=== PATIENT | female | born 1955 | race Caucasian/White ===

== ENCOUNTER → 2018-09-06 | Outpatient (CLI) | payer OTHER, SELFPAY ==
[2018-09-06 15:20] VITALS: BMI 27.2
--- NOTE | 2018-09-06 16:24 | RAD_ITS ---
STUDY: X-RAY CHEST REASON FOR EXAM: Female, 62 years old. Preop for heart catheterization TECHNIQUE: 2 views COMPARISON: None. FINDINGS: The lungs are clear and expanded. There is no demonstrated pleural abnormality. Normal size heart. Normal mediastinum and adri. Normal visualized pulmonary arteries. Normal visualized aortic arch and descending thoracic aorta. Normal visualized thoracic spine. Normal visualized ribs, clavicles, and shoulders. There is no demonstrated abnormality of the visualized soft tissue structures of the upper abdomen. RAD/Chest PA and Lateral IMPRESSION: Normal x-ray examination of the chest. No acute findings in the lungs Electronically Signed: Leonardo Sommers MD at 5:17 EDT Tel , Service support ,
[2018-09-06 17:26] LABS: Hematocrit 38.1 % (37-47); Hemoglobin 12.5 g/dl (12.0-15.0); Mean Corp Hgb Conc 32.8 g/gl (32-36); Mean Corpuscular Hgb 30.4 pg (27.0-32.0); Mean Corpuscular Volume 92.7 fL (81-99); Mean Platelet Vol. 9.2 fl (6.2-12.0); Platelet Count 280 K/mm3 (150-450); RBC Distribution Width CV 13.3 % (11.6-14.6); RBC Distribution Width SD 45.2 fl (35.1-43.9); Red Blood Count 4.11 M/mm3 (4.2-5.4); White Blood Count 7.5 K/mm3 (4.4-11.0)
[2018-09-06 17:31] LABS: Scan Indicated on CBC? Y/N NO
[2018-09-06 17:40] LABS: Partial Thromboplast Time 28.3 Seconds (24.1-36.2); Prothrombin Time (Protime)PT. 13.1 SECONDS (11.7-14.9)
[2018-09-06 18:15] LABS: Anion Gap 7 (5-15); BUN 17 mg/dL (7-18); Calcium,Total 9.1 mg/dL (8.5-10.1); Chloride 105 mmol/L (98-107); Creatinine, Serum 0.65 mg/dL (0.55-1.02); EST Glomerular Filtration Rate 97 mL/min (>60); Est Glom Filt Rate - Afr Amer 117 mL/min (>60); Glucose 105 mg/dL (74-106); Potassium 3.6 mmol/L (3.5-5.1); Sodium Level 141 mmol/L (136-145)
== END | disposition home or self-care (01) ==
PROVIDERS: Family Provider Internal Medicine; PCP Internal Medicine; Referring Provider Internal Medicine Cardiovascular Disease; Visit Provider Internal Medicine Cardiovascular Disease
DX: R94.39 Abnormal result of other cardiovascular function study (principal); E06.3 Autoimmune thyroiditis; E04.2 Nontoxic multinodular goiter; R00.2 Palpitations
CPT/HCPCS: 36415; 71046; 80048; 85027; 85610; 85730

== ENCOUNTER 2018-09-14 08:09 | Day surgery (SDC) | payer OTHER, SELFPAY ==
[2018-09-06 15:20] VITALS: BMI 27.2
--- NOTE | 2018-09-06 16:05 | HP_ITS ---
HPI HPI Surgical H&P: Yes Details: Mrs. Perera is a very pleasant 62-year-old female with a history of Jessica's thyroiditis, hypertension, hyperlipidemia, who was referred to us for abnormal stress test. Last stress test was in 2004 at the [facility] which was negative. In addition she had not had any stress testing in the better part of 13 years. For surveillance purposes she was referred for repeat stress test. She underwent a exercise stress echo on 08/15/18 which was positive for ischemia specifically of the inferior inferoseptal and basal inferoseptal segments were all mildly hypokinetic. She denies any chest pain, angina, shortness of breath or dyspnea on exertion. This test was done due to her chronically abnormal EKG. Patient has had no premature coronary disease in her parents, but her father's uncles had a history of coronary artery disease. She has no siblings with coronary disease. Her most recent echocardiogram was at the [facility] on 06/05/04 showed an EF 55%. In addition she has stress echo in 2004 which again was normal. In our office her blood pressure is 150/70, and pulse is 72 and regular. Her physical exam is as below. Cardiac exam is regular rate and rhythm, normal S1/S2, no S3 or S4. Lipids as of 06/13/18 show an HDL of 62 and an LDL of 52. EKG is her most recent EKG on 08/15/18 showed normal sinus rhythm with nonspecific inferior lateral ST segment flattening and T wave inversion. 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 Is patient in pain?: No Allergies adhesive tape Adverse Reaction (Intermediate, Verified 09/06/18 15:21) Rash Medications atorvastatin 10 mg tablet 10 mg PO QHS 08/23/18 [History Confirmed 09/06/18] calcium carb 300 mg-D3 800 unit-mag ox 25 mg-copy holder 0.5 mg-yesenia-Zn tablet 1 tab PO DAILY 08/23/18 [History Confirmed 09/06/18] cholecalciferol (vitamin D3) 1,000 unit capsule 1,000 unit PO DAILY 08/23/18 [History Confirmed 09/06/18] estradiol 0.01% (0.1 mg/gram) vaginal cream 1 g VAGINAL 2XW 08/23/18 [History Confirmed 09/06/18] yhytkwok-kfn-xsmlt acid 0.4 mg-lycopene 300 mcg-lutein 250 mcg tablet 1 tab PO DAILY 08/23/18 [History Confirmed 09/06/18] propranolol 20 mg tablet 10 mg PO BID tab 08/23/18 [History Confirmed 09/06/18] aspirin 81 mg tablet,delayed release 81 mg PO DAILY #30 tab 09/06/18 [Rx Confirmed 09/06/18] clopidogrel 75 mg tablet 75 mg PO DAILY #30 tab 09/06/18 [Rx Confirmed 09/06/18] fluocinolone 0.01 % topical cream 1 applic TOPICAL .COMPLEX 09/06/18 [History Confirmed 09/06/18] [facility] Medical History Palpitations (Acute) H/O Jessica thyroiditis (Chronic 04/04/15) Abnormal stress test (Acute) Hypertension (Chronic) Hyperlipidemia (Chronic) Multiple thyroid nodules (Chronic) Uterovaginal prolapse (Chronic) Surgical History History of benign breast biopsy (Chronic) History of colonoscopy (Chronic) History of patellar fracture (Chronic) History of tubal ligation (Chronic) Hx of malignant melanoma (Chronic) Status post biopsy of skin (Chronic) Family History Mother Breast cancer, Onset Age: 85 Father Hypertension Skin cancer Social History Smoking Status: Never smoker ROS Const Const: Positive for other (Referred by Dr. Cunningham for abnormal stress); negative for fatigue, weakness, body ache, fever(s), headache(s), chills, frequent falls, night sweats, daytime sleepiness, difficulty sleeping, excessive sweating, weight gain, weight loss, increased appetite, poor appetite or anorexia Eyes Eyes: Negative for blind spots, loss of peripheral vision, transient loss of vision, blurry vision, change in vision, double vision, floaters, tunnel vision or other ENT ENT: Negative for headache(s), dizziness, hearing loss, tinnitus, Nosebleed/epistaxis, balance problems, post nasal drip, lip swelling, tongue swelling, bleeding gums, hoarseness, neck pain, dry mouth or other Cardio Chest Pain: No Palpitations: No Edema: None Muscle aches with walking: None Resp Respiratory: Negative for SOB with activity, SOB at rest, SOB orthopnea\SOB lying down, Cough, Coughing up blood/hemoptysis, chest congestion, pain on inspiration, snoring, stridor, wheezing, crackles, paroxysmal nocturnal dyspnea or other GI GI: Negative nausea, vomiting, heartburn, constipation, belching, bloating, cramping, vomiting blood/hematemesis, bright, red blood in stools, black,tarry stools, loose stools, Difficulty Swallowing or other : Negative for hematuria, frequent nighttime urination/ nocturia, erectile dysfunction or abnormal vaginal bleeding Musc Musc: Negative for muscle aches/ myalgia, muscle weakness, joint pain or balance problems Skin Skin: Negative redness, non-healing lesions, rash, unusual bruising, skin ulcer, wounds, jaundice or other Neuro Neuro: Negative for dizziness, lightheadedness, near syncope, syncope, orthostatic symptoms, frequent falls, headache(s), weakness, confusion, memory loss, restless legs, blurry vision, double vision, vertigo, seizures, lack of coordination or other Armando Hematologic/Lymphatic: Negative for easy bleeding, easy bruising, enlarged lymph nodes or other Endo Endo: Negative for fatigue, cold intolerance, heat intolerance, excessive sweating, flushing, increased thirst/drinking, increased hunger, hair loss, hair growth or other Psych Psych: Negative for anxiety, depression, thoughts of harming anyone, thoughts of harming yourself, visual hallucinations, panic attacks or audible hallucinations Allergy Allergy/Immunology: Negative for throat swelling, Negative for tongue swelling, Negative for hives, Negative for rash, Negative for lip swelling Cardiology Exam Const Appearance: cooperative, healthy appearing and no acute distress Nutritional Appearance: well nourished Orientation: alert, oriented x3 and oriented to person Head Head: normal to inspection, normocephalic and atraumatic Nose: external nose normal Face and Sinus: face symmetric Mouth: oral mucosae normal Eyes General: appearance normal, both eyes and all related structures Eyelids: eyelids normal Conjunctivae: conjunctivae normal Pupils: PERRL and normal by confrontation EOM: EOM intact bilaterally Neck Neck: normal visual inspection and full ROM Carotids: normal carotid upstroke Chest Chest inspection: normal inspection of the chest Auscultation: Bilateral: Clear to Auscultation Cardio Palpation: normal PMI Rate: regular rate Rhythm: regular rhythm Heart sounds: S1 normal and S2 normal GI GI: normal to inspection, no hepatosplenomegaly and bowel sounds present Neuro General: alert, awake, oriented x3, CN's II-XI intact bilaterally and moves all extremities Skin Skin: no rashes or lesions noted Extremities Pulses: Normal: Right Femoral Pulse, Left Femoral Pulse, Right Dorsalis Pedis Pulse, Left Dorsalis Pedis Pulse, Right Posterior Tibial Pulse, Left Posterior Tibial Pulse, Right Radial Pulse, Left Radial Pulse Lower Extremity Edema: None: Bilateral Psych Psychological: normal affect Assessment & Plan 1. Abnormal stress test R94.39 Plan 1. Abnormal stress test: Patient presents with an abnormal stress test for her abnormal EKG and part of surveillance for coronary artery disease. Given the patient's abnormal EKG, and abnormal stress echocardiogram in the same territory as her abnormal EKG, and provided the fact that she has a history of coronary disease in her father's uncles, as well as a normal stress echo in 2004, I recommended that she undergo a diagnostic coronary angiogram to confirm/deny the presence of significant coronary occlusive disease. To that end she will start on baby aspirin 81 mg p.o. daily, and Plavix 75 mg a day. In addition she will continue her antihypertensive medications of propranolol. The risks/benefits of the procedure were thoroughly explained to the patient including specific attention to lack of on-site surgical backup, and the patient is agreed to proceed. All questions answered. 2. Hyperlipidemia E78.5 Plan 2. Hyperlipidemia: Her LDL and HDL cholesterol are at goal. Continue Lipitor. 3. Return office in 6 months. This note was generated using a voice recognition system and there may be incorrect words, spelling or punctuation that were not noted when reviewing the office note prior to saving. Plan Detail Other Medications New: aspirin (Adult Aspirin Regimen) 81 mg PO DAILY 30 tabs 11RF clopidogrel (Plavix) 75 mg PO DAILY 30 tabs 3RF Follow Up +6M (Rojas) Coding Level of Care Code Off vis,new,level 4 Diagnoses Abnormal stress test R94.39 Hyperlipidemia E78.5 Coding Level of Care Code Off vis,new,level 4 Diagnoses Abnormal stress test R94.39 Hyperlipidemia E78.5
[2018-09-13 11:06] VITALS: BMI 27.2
--- NOTE | 2018-09-14 09:39 | CL.D_ITS ---
Patient Name: LENIN BRAUN Study Date: 09/14/2018 Performing: Jordan Rojas MD Ht: 66.14 inches 168 cm : 1955 Wt: 169.76 lbs 77 kg Age: 62 Gender: female BSA: 1.87 PROCEDURE(S) PERFORMED [id number]-GWI/COR/LV CLINICAL PROFILE AND INDICATIONS Indications: Suspected CAD, LV Dysfunction Heart Failure: NYHA Class: 1, Newly Diagnosed: No, Heart Failure Type: Systolic Stress/Imaging Date: 08/15/2018Stress Echocardiogram: Positive Low Risk Angina Classification Anginal Classification w/in 2 Weeks: No symptoms CAD Presentations: No Sxs, no angina. Comorbidities/Risk Factors: Hypertension Dyslipidemia CONCLUSIONS Non obstructive coronary arteries Segmented LV systolic dysfunction- Mild LVEF: by LV gram 55 % Normal Left Ventricular End Diastolic Pressure RECOMMENDATIONS ASA Indefinitely Start cozaar 25mg po daily for HTN and LV dysfunction. Manual sheath removal DESCRIPTION OF PROCEDURE The patient arrived to the procedure lab. The risks and benefits of the procedure as well as a full d escription of our services here and current unavailability of surgical backup were fully explained to the patient and/or their significant other prior to the catheterization. The Timeout was completed, verifying the correct patient and procedure. The patient's procedural site was prepped and draped in the usual fashion. Local anesthetic was given subcutaneously to right groin region with Lidocaine 2%. Using a modified Seldinger technique, arterial access was obtained via the right femoral artery, a 4 Fr sheath was inserted Left Coronary Artery selective angiography was performed in multiple views us ing a 4 Fr. JL5 catheter. Right Coronary Artery selective angiography was then performed in multiple views using a 4 Fr. 3DRC catheter. Left Ventriculography was performed in ELIZONDO projection using a 4 Fr . Pigtail catheter. LV to AO pullback pressures were then recorded.The arterial sheath was pulled and manual compression applied until hemostasis is achieved. CORONARY ANGIOGRAPHY DOMINANCE: Right Dominant LEFT HEART ASSESSMENT Left Ventricular Ejection Fraction: by LV Gram 55 % Inferior Mid Hypokinesis - Mild Depressed Left Ventricular systolic function LVEDP: 8 mmHg Normal Left Ventricular End Diastolic Pressure LEFT MAIN: Angiographically normal LEFT ANTERIOR DECENDING ARTERY: DISTAL LAD: Mild luminal irregularities less than 30% CIRCUMFLEX ARTERY: Angiographically normal RIGHT CORONARY ARTERY: Angiographically normal COMPLICATIONS No Complications PROCEDURE MEDICATIONS Versed 1 mg IV Oxygen: 2 L/min via nasal cannula Nitro 200 mcg IC 09/14/2018 09:22:27 SUMMARY OF HEMODYNAMIC DATA Time AIR REST ECG 08:42:11 ECG 09:10:06 AO 150/69 (100) SA 09:19:53 LV 134/-22, 9 09:27:31 LV 129/-19, 8 09:27:38 LVp 135/-21, 6 09:28:03 AOp 134/62 (92) 09:28:08 Signed By Jordan Rojas MD On 09/14/2018 09:38:56 Jordan Rojas MD
== END 2018-09-14 14:00 | disposition home or self-care (01) ==
LOC: CLSP 08:10
PROVIDERS: Family Provider Internal Medicine; PCP Internal Medicine; Referring Provider Internal Medicine Cardiovascular Disease; Visit Provider Internal Medicine Cardiovascular Disease
DX: R94.39 Abnormal result of other cardiovascular function study (principal); E78.5 Hyperlipidemia, unspecified; I10 Essential (primary) hypertension; Z79.82 Long term (current) use of aspirin; Z79.899 Other long term (current) drug therapy
CPT/HCPCS: 93458; 99152; J7040; C1769; C1894; Q9967

== ENCOUNTER → 2019-04-17 | Outpatient (CLI) | payer OTHER, SELFPAY ==
[2019-04-13 15:30] VITALS: BMI 27.4
[2019-04-17 09:27] LABS: AST(SGOT) 26 U/L (15-37); Alanine Aminotransfer ALT/SGPT 34 U/L (13-56); Alkaline Phosphatase 98 U/L (45-117); Bilirubin, Direct 0.19 mg/dL (0.00-0.30); Cholesterol 131 mg/dL (200); Globulin 4.1 g/dL (2.2-4.2); High Density Lipoprotein 61 mg/dL; Protein, Total 8.1 g/dL (6.4-8.2); Triglycerides 82 mg/dL; Very Low Density Lipoprotein 16 mg/dL (5-40)
== END | disposition home or self-care (01) ==
PROVIDERS: Family Provider Internal Medicine; PCP Internal Medicine; Referring Provider Internal Medicine Cardiovascular Disease; Visit Provider Internal Medicine Cardiovascular Disease
DX: E78.5 Hyperlipidemia, unspecified (principal)
CPT/HCPCS: 36415; 80061; 80076

== ENCOUNTER → 2019-11-06 09:02 | Outpatient (CLI) | payer OTHER, SELFPAY ==
[2019-04-13 15:30] VITALS: BMI 27.4
[2019-11-06 09:48] LABS: AST(SGOT) 20 U/L (15-37); Alanine Aminotransfer ALT/SGPT 26 U/L (13-56); Albumin, Serum 3.8 g/dL (3.2-5.0); Alkaline Phosphatase 94 U/L (45-117); Bilirubin, Direct 0.26 mg/dL (0.00-0.30); Cholesterol 143 mg/dL (200); High Density Lipoprotein 58 mg/dL; Protein, Total 7.8 g/dL (6.4-8.2); Triglycerides 130 mg/dL; Very Low Density Lipoprotein 26 mg/dL (5-40)
== END ==
PROVIDERS: PCP Internal Medicine; Referring Provider Internal Medicine Cardiovascular Disease; Visit Provider Internal Medicine Cardiovascular Disease
DX: E78.00 Pure hypercholesterolemia, unspecified (principal); E78.5 Hyperlipidemia, unspecified
CPT/HCPCS: 36415; 80061; 80076

== ENCOUNTER → 2019-11-27 | Outpatient (CLI) | payer OTHER, SELFPAY ==
[2019-11-09 09:09] VITALS: BMI 27.3
--- NOTE | 2019-11-27 10:22 | ECHOD_ITS ---
Reason For Study: SOB Procedure This was a 2D Doppler, Color Flow transthoracic echocardiogram. Exam performed in department. Left Ventricle Mildly dilated left ventricle. The estimated ejection fraction is 50 %. Stage 2 diastolic dysfunction. There is mild global hypokinesis of the left ventricle. Right Ventricle Normal size and thickness. Normal systolic function. Atria Normal left atrium. Normal right atrium. Normal atrial septum. Mitral Valve The mitral valve is structurally normal. No prolapse or stenosis seen. Mild (1+) posteriorly directed mitral valve insufficiency. Tricuspid Valve Normal tricuspid valve. Trivial tricuspid valve insufficiency. Right ventricular systolic pressure estimated to be 29 mmHg. Aortic Valve Trisinus/trileaflet aortic valve. Trivial aortic valve insufficiency. Pulmonic Valve Normal pulmonic valve. Trivial pulmonic valve insufficiency. Great Vessels Normal aortic root. Normal arch. Normal inferior vena cava. Inferior vena cava collapse with sniff. Pericardium/Pleural No pericardial effusion. MMode/2D Measurements & Calculations LVIDd: 5.3 cm IVSd: 0.78 cm Ao root diam: 2.9 cm LVIDs: 4.0 cm LVPWd: 0.89 cm RVDd: 3.4 cm FS: 25.0 % LAV(MOD-bp): 45.2 ml LVAd ap4: 31.9 cm2 SV(MOD-sp4): 53.5 ml LAV(MOD-bp) Indexed: 24.0 ml/m2 EDV(MOD-sp4): 104.0 ml LAV(MOD-sp2): 40.6 ml EDV(sp4-el): 106.6 ml LAV(MOD-sp4): 49.3 ml LVAs ap4: 19.7 cm2 ESV(MOD-sp4): 50.5 ml ESV(sp4-el): 48.7 ml EF(MOD-sp4): 51.5 % EF(sp4-el): 54.3 % SV(sp4-el): 57.9 ml LA A4 area: 17.6 cm2 LA dimension(2D): 3.3 cm RA A4 area: 14.0 cm2 Doppler Measurements & Calculations MV E max louie: 95.5 cm/sec Lat Peak E' Louie: 8.1 cm/sec Med Peak E' Louie: 6.7 cm/sec MV A max louie: 81.5 cm/sec E/E' lat: 11.8 E/E' med: 14.3 MV E/A: 1.2 Ao V2 max: 140.3 cm/sec AI max louie: 356.2 cm/sec LV V1 max: 101.3 cm/sec Ao max P.9 mmHg AI max P.8 mmHg LV V1 max P.1 mmHg AI dec slope: 206.7 cm/sec2 AI P1/2t: 504.8 msec PA V2 max: 91.3 cm/sec TR max louie: 246.6 cm/sec TR max P.4 mmHg Interpretation Summary Mildly dilated left ventricle. The estimated ejection fraction is 50 %. Stage 2 diastolic dysfunction. There is mild global hypokinesis of the left ventricle. Mild (1+) posteriorly directed mitral valve insufficiency. Trivial tricuspid valve insufficiency. Right ventricular systolic pressure estimated to be 29 mmHg. Trivial aortic valve insufficiency. There is no comparison study available. Ordering Physician: Jordan Rojas Referring Physician: Yana Soto Performed By: eTri Levin, ANDREY
== END | disposition home or self-care (01) ==
LOC: CVS 10:22
PROVIDERS: PCP Internal Medicine; Referring Provider Internal Medicine Cardiovascular Disease; Visit Provider Internal Medicine Cardiovascular Disease
DX: R06.00 Dyspnea, unspecified (principal); R06.02 Shortness of breath
CPT/HCPCS: 93306

== ENCOUNTER → 2019-11-29 | Outpatient (CLI) | payer OTHER, SELFPAY ==
[2019-11-09 09:09] VITALS: BMI 27.3
--- NOTE | 2019-11-29 10:28 | STE_ITS ---
Reason For Study: DYSPNEA/SOB Stress Results Protocol: Scott Protocol Maximum Predicted HR: 155 bpm Target HR: 132 bpm % Maximum Predicted HR: 97 % DurationHeart Rate Stage (mm:ss) (bpm) BP Comment BASELINE 76 142/82 STAGE 1 3:00 114 152/80 STAGE 2 3:00 130 182/74 STAGE 3 2:27 151 / SOB/NO CHEST PAIN RECOVERY 88 138/78 Stress Duration: 8:27 mm:ss Maximum Stress HR: 151 bpm Baseline Echocardiogram Findings The estimated ejection fraction is 55 %. Normal size and thickness. Stress Echo Wall motion Data Resting WM Intermediate WM Stress WM Resting Wall Motion Wall Motion Stress No regional wall motion Mid-Anterior : Mildly abnormalities noted. hypokinetic. Anterior [place] : Mildly hypokinetic. EKG Data The baseline ECG displays normal sinus rhythm. The patient exercised according to the regular Scott protocol for a total duration of 8:27. The maximum heart rate attained was 153 beats per minute. This was 98% of maximum predicted heart rate. The patient exercised into stage 3 of the Scott protocol. The stress ECG displays diffuse abnormal ST segments. No clinical angina was noted. Interpretation Summary The estimated ejection fraction is 55 %. Mid-Anterior : Mildly hypokinetic Anterior [place] : Mildly hypokinetic Abnormal, adequate, treadmill echocardiogram. Positive for ischemia by EKG and echocardiographic criteria. No anginal symptoms noted. Rare PVC PACs noted. Patient developed [address] segment depression at 1 minute 14 seconds into exercise, to a maximum of 1.[address] segment depression at peak exercise. These changes persisted until 5 minutes 50 seconds into recovery. In addition the patient developed mid anterior septal and apical hypokinesis consistent with ischemia. Patient tolerate procedure well. Final LVEF of 45%. Test terminated due to attainment target heart rate and dyspnea which may be an anginal equivalent. Ordering Physician: Jordan Rojas Referring Physician: Jordan Rojas Performed By: Brodwolf, Gilbert, RCS
== END | disposition home or self-care (01) ==
LOC: CVS 10:28
PROVIDERS: PCP Internal Medicine; Referring Provider Internal Medicine Cardiovascular Disease; Visit Provider Internal Medicine Cardiovascular Disease
DX: R06.00 Dyspnea, unspecified (principal); R06.02 Shortness of breath
CPT/HCPCS: 93017; 93350

== ENCOUNTER 2019-12-06 07:50 | Day surgery (SDC) | payer OTHER, SELFPAY ==
[2019-11-09 09:09] VITALS: BMI 27.3
--- NOTE | 2019-12-04 10:11 | RAD_ITS ---
STUDY: X-RAY CHEST REASON FOR EXAM: Female, 63 years old. pre-operative eval, pre heart cath -- LHC -- abnormal stress test, abnormal echo -- SOB during exercise TECHNIQUE: Frontal and lateral views of the chest. COMPARISON: 09/06/2018 FINDINGS: The lungs are clear and expanded. There is no demonstrated pleural abnormality. Normal size heart. Normal mediastinum and adri. Normal visualized pulmonary arteries. Normal visualized aortic arch and descending thoracic aorta. Normal visualized thoracic spine. Normal visualized ribs, clavicles, and shoulders. There is no demonstrated abnormality of the visualized soft tissue structures of the upper abdomen. RAD/Chest PA and Lateral IMPRESSION: Normal x-ray examination of the chest. Electronically Signed: Cornelio Granados MD at 20:50 EDT Tel , Service support ,
[2019-12-04 10:32] LABS: Absolute Lymphocyte Count 1.08 X10^3/uL (0.83-4.51); Absolute Neutrophil Count 5.2 X10^3/uL (2.0-7.7); Basophil# 0.03 X10^3/uL; Basophil% 0.4 % (0-1); Eosinophil# 0.28 X10^3/uL; Eosinophils% 3.8 % (0-5); Hemoglobin 12.5 g/dL (12.0-15.0); Lymphocyte # 1.08 X10^3/ul (4.0); Lymphocyte % 14.8 % (19-41); Mean Corp Hgb Conc 31.3 g/dL (32-36); Mean Corpuscular Hgb 30.3 pg (27.0-32.0); Mean Corpuscular Volume 97.1 fL (81-99); Mean Platelet Vol. 9.6 fl (6.2-12.0); Monocyte# 0.64 X10^3/uL; Monocyte% 8.8 % (0-10); NRBC Flagged by Analyzer 0 % (0-5); Neutrophil # 5.22 X10^3/uL (2.7-7.7); Neutrophil % 71.8 % (47-70); Platelet Count 303 K/mm3 (150-450); RBC Distribution Width CV 12.8 % (11.6-14.6); RBC Distribution Width SD 45.6 fl (35.1-43.9); Red Blood Count 4.12 M/mm3 (4.2-5.4); White Blood Count 7.3 K/mm3 (4.4-11.0)
[2019-12-04 10:43] LABS: International Normalized Ratio 1.1; Prothrombin Time (Protime)PT. 13.4 SECONDS (11.7-14.9)
[2019-12-04 10:44] LABS: Partial Thromboplast Time 28.7 Seconds (24.1-36.2)
[2019-12-04 10:53] LABS: Anion Gap 6 (5-15); BUN 18 mg/dL (7-18); BUN/Creat Ratio 28.8 RATIO (10-20); Calcium,Total 9.2 mg/dL (8.5-10.1); Chloride 104 mmol/L (98-107); Creatinine, Serum 0.62 mg/dL (0.55-1.02); EST Glomerular Filtration Rate 102 mL/min (>60); Est Glom Filt Rate - Afr Amer 123 mL/min (>60); Glucose 105 mg/dL (74-106); Potassium 4.2 mmol/L (3.5-5.1); Sodium Level 140 mmol/L (136-145)
[2019-12-04 11:28] VITALS: BMI 27.3
--- NOTE | 2019-12-04 12:18 | HP_ITS ---
HPI HPI History of Present Illness Surgical H&P: Yes Details: Details: Mrs. Perera is a very pleasant 63-year-old female with a history of Jessica's thyroiditis, hypertension, hyperlipidemia, who was referred to us for abnormal stress test. A previous stress test was in 2004 at the [facility] which was negative. In addition she had not had any stress testing in the better part of 13 years. For surveillance purposes she was referred for repeat stress test. She underwent a exercise stress echo on 08/15/18 which was positive for ischemia specifically of the inferior inferoseptal and basal inferoseptal segments were all mildly hypokinetic. This gave way to a cardiac catheterization which took place on 09/14 at [facility] which showed nonobstructive coronary disease. No intervention was performed. Patient had a virtual appointment with Dr. Rojas on 11/09/2019. During such conversation, she expressed shortness of breath on exertion. She underwent a stress echocardiogram on 11/29/2019 was considered to be abnormal. She denies chest, arm, jaw, or neck discomfort. Her exercise tolerance is stable. She denies symptoms of palpitations, lightheadedness, dizziness, near syncope, or syncopal episodes. She denies edema or claudication issues. She denies orthopnea, PND, fever, chills, blood in urine, blood in stool, myalgia, or unexplainable fatigue. Beyond episode of dyspnea on exertion describe during virtual appointment on 11/09/2019, she denies recurring shortness of breath. Intake Vital Signs 12/04/19 BMI 27.3 Intake Visit Reasons: COMING IN/Update H&P for cath on 12/05 Allergies adhesive tape Adverse Reaction (Intermediate, Verified 04/13/19 15:35) Rash [facility] Social History (Updated 12/04/19 @ 12:18 by Gokul Hinojosa NP-C) Smoking Status: Never smoker ROS Const Const: Negative for fatigue, weakness, body ache, fever(s) or chills ENT ENT: Negative for dizziness Cardio Chest Pain: No Palpitations: No Edema: None Muscle aches with walking: None Resp Respiratory: Positive for SOB with activity; negative for SOB at rest, SOB orthopnea\SOB lying down or paroxysmal nocturnal dyspnea GI GI: Negative nausea, vomiting blood/hematemesis, bright, red blood in stools or black,tarry stools : Negative for hematuria or frequent nighttime urination/ nocturia Musc Musc: Negative for muscle aches/ myalgia Skin Skin: Negative non-healing lesions or rash Neuro Neuro: Negative for dizziness, lightheadedness, near syncope, syncope, orthostatic symptoms or weakness Endo Endo: Negative for fatigue Allergy Allergy/Immunology: Negative for rash Cardiology Exam Const Appearance: cooperative, healthy appearing, comfortable and no acute distress Nutritional Appearance: well nourished and overweight Orientation: alert, awake and oriented x3 Head Head: normal to inspection Ears: hearing grossly normal bilaterally Nose: external nose normal Face and Sinus: face symmetric Mouth: oral mucosae normal Eyes General: appearance normal, both eyes and all related structures Eyelids: eyelids normal EOM: EOM intact bilaterally Neck Neck: normal visual inspection and no JVD Carotids: normal carotid upstroke Chest Chest inspection: normal inspection of the chest, symmetric chest movement and normal respiratory effort; negative cough Auscultation: Bilateral: Clear to Auscultation Cardio Rate: regular rate Rhythm: regular rhythm Heart sounds: S1 normal and S2 normal; negative rub, gallop or murmur GI GI: normal to inspection Neuro General: alert, awake, oriented x3 and CN's II-XI intact bilaterally Skin Skin: no rashes or lesions noted Extremities Pulses: Normal: Right Posterior Tibial Pulse, Left Posterior Tibial Pulse, Right Radial Pulse, Left Radial Pulse Lower Extremity Edema: None: Bilateral Psych Psychological: normal affect Assessment & Plan 1. Abnormal stress test R94.39 Plan As noted above, her most recent stress test on 11/29/2019 was considered to be abnormal. At this time, she will proceed with outpatient heart catheterization to evaluate further. Her last heart catheterization on 09/04/2018 showed an ejection of 55%, left main as angiographically normal, distal LAD with mild luminal irregularities less than 30%, circumflex artery as angiographically normal, and RCA as angiographically normal. Based on results, further recommendation will be made. 2. Palpitations R00.2 Plan This appears stable. She will continue current beta-pauline therapy. 3. Essential hypertension I10 Plan Patient's blood pressure is well-controlled. We will continue to monitor. We will not make any medication regimen changes. 4. Hyperlipidemia, unspecified hyperlipidemia type E78.5 Plan Lipid panel from 11/06/2019 showed cholesterol: 143, HDL: 58, LDL: 59, and triglycerides: 130. She will continue current statin medication. Plan Detail Additional Comments Her laboratory results were reviewed. She will proceed with outpatient heart catheterization on 12/06/[address] Rojas, bearing in mind no concerns on chest x-ray (which is currently pending). Thank you for allowing us to participate in the patients plan of care, if you have any questions please do not hesitate to call. This note was generated using a voice recognition system and there may be incorrect words, spelling or punctuation that were not noted when reviewing the office note prior to saving. Follow Up Keep as is Coding Level of Care Code Off vis,est,level 3 Diagnoses Abnormal stress test R94.39 Palpitations R00.2 Essential hypertension I10 ??Hypertension type: essential hypertension Hyperlipidemia, unspecified hyperlipidemia type E78.5 ??Hyperlipidemia type: unspecified Coding Level of Care Code Off vis,est,level 3 Diagnoses Abnormal stress test R94.39 Palpitations R00.2 Essential hypertension I10 ??Hypertension type: essential hypertension Hyperlipidemia, unspecified hyperlipidemia type E78.5 ??Hyperlipidemia type: unspecified Supplemental Info Supplemental Information Heart catheterization from 09/14/2018: CONCLUSIONS Non obstructive coronary arteries Segmented LV systolic dysfunction- Mild LVEF: by LV gram 55 % Normal Left Ventricular End Diastolic Pressure RECOMMENDATIONS ASA Indefinitely Start cozaar 25mg po daily for HTN and LV dysfunction. Manual sheath removal CORONARY ANGIOGRAPHY DOMINANCE: Right Dominant LEFT HEART ASSESSMENT Left Ventricular Ejection Fraction: by LV Gram 55 % Inferior Mid Hypokinesis - Mild Depressed Left Ventricular systolic function LVEDP: 8 mmHg Normal Left Ventricular End Diastolic Pressure LEFT MAIN: Angiographically normal LEFT ANTERIOR DESCENDING ARTERY: DISTAL LAD: Mild luminal irregularities less than 30% CIRCUMFLEX ARTERY: Angiographically normal RIGHT CORONARY ARTERY: Angiographically normal Stress echocardiogram from 11/29/2019: Interpretation Summary The estimated ejection fraction is 55 %. Mid-Anterior : Mildly hypokinetic Anterior [place] : Mildly hypokinetic Abnormal, adequate, treadmill echocardiogram. Positive for ischemia by EKG and echocardiographic criteria. No anginal symptoms noted. Rare PVC PACs noted. Patient developed [address] segment depression at 1 minute 14 seconds into exercise, to a maximum of 1.[address] segment depression at peak exercise. These changes persisted until 5 minutes 50 seconds into recovery. In addition the patient developed mid anterior septal and apical hypokinesis consistent with ischemia. Patient tolerate procedure well. Final LVEF of 45%. Test terminated due to attainment target heart rate and dyspnea which may be an anginal equivalent. Labs LDL Cholesterol 59 mg/dL (0-130) 11/06/19 HDL Cholesterol 58 mg/dL (40-) 11/06/19 Triglycerides 130 mg/dL (-199) 11/06/19 VLDL Cholesterol 26 mg/dL (5-40) 11/06/19 Diagnostics Echocardiogram 11/27/19 Stress Echocardiogram 11/29/19 Cardiac Catheterization 09/14/18 Chest X-Ray 12/04/19 12/04/19 1218 <Electronically signed by Gokul Hinojosa N Lenard> Date _ Gokul Hinojosa [employer] TECH[employer]OLOG[employer] INSTRUCTORArsenC
--- NOTE | 2019-12-05 17:02 | HP.PCM_ITS ---
History and Physical Date of Admission: 12/06/19 HPI HPI History of Present Illness Surgical H&P: Yes Details: Details: Mrs. Perera is a very pleasant 63-year-old female with a history of Jessica's thyroiditis, hypertension, hyperlipidemia, who was referred to us for abnormal stress test. A previous stress test was in 2004 at the [facility] which was negative. In addition she had not had any stress testing in the better part of 13 years. For surveillance purposes she was referred for repeat stress test. She underwent a exercise stress echo on 08/15/18 which was positive for ischemia specifically of the inferior inferoseptal and basal inferoseptal segments were all mildly hypokinetic. This gave way to a cardiac catheterization which took place on 09/14 at [facility] which showed nonobstructive coronary disease. No intervention was performed. Patient had a virtual appointment with Dr. Rojas on 11/09/2019. During such conversation, she expressed shortness of breath on exertion. She underwent a stress echocardiogram on 11/29/2019 was considered to be abnormal. She denies chest, arm, jaw, or neck discomfort. Her exercise tolerance is stable. She denies symptoms of palpitations, lightheadedness, dizziness, near syncope, or syncopal episodes. She denies edema or claudication issues. She denies orthopnea, PND, fever, chills, blood in urine, blood in stool, myalgia, or unexplainable fatigue. Beyond episode of dyspnea on exertion describe during virtual appointment on 11/09/2019, she denies recurring shortness of breath. Intake Vital Signs See EMR Medications See EMR Intake Visit Reasons: COMING IN/Update H&P for cath on 12/05 Allergies adhesive tape Adverse Reaction (Intermediate, Verified 04/13/19 15:35) Rash [facility] Social History (Updated 12/04/19 @ 12:18 by KONSTANTIN Ortega) Smoking Status: Never smoker ROS Const Const: Negative for fatigue, weakness, body ache, fever(s) or chills ENT ENT: Negative for dizziness Cardio Chest Pain: No Palpitations: No Edema: None Muscle aches with walking: None Resp Respiratory: Positive for SOB with activity; negative for SOB at rest, SOB orthopnea\SOB lying down or paroxysmal nocturnal dyspnea GI GI: Negative nausea, vomiting blood/hematemesis, bright, red blood in stools or black,tarry stools : Negative for hematuria or frequent nighttime urination/ nocturia Musc Musc: Negative for muscle aches/ myalgia Skin Skin: Negative non-healing lesions or rash Neuro Neuro: Negative for dizziness, lightheadedness, near syncope, syncope, orthostatic symptoms or weakness Endo Endo: Negative for fatigue Allergy Allergy/Immunology: Negative for rash Cardiology Exam Const Appearance: cooperative, healthy appearing, comfortable and no acute distress Nutritional Appearance: well nourished and overweight Orientation: alert, awake and oriented x3 Head Head: normal to inspection Ears: hearing grossly normal bilaterally Nose: external nose normal Face and Sinus: face symmetric Mouth: oral mucosae normal Eyes General: appearance normal, both eyes and all related structures Eyelids: eyelids normal EOM: EOM intact bilaterally Neck Neck: normal visual inspection and no JVD Carotids: normal carotid upstroke Chest Chest inspection: normal inspection of the chest, symmetric chest movement and normal respiratory effort; negative cough Auscultation: Bilateral: Clear to Auscultation Cardio Rate: regular rate Rhythm: regular rhythm Heart sounds: S1 normal and S2 normal; negative rub, gallop or murmur GI GI: normal to inspection Neuro General: alert, awake, oriented x3 and CN's II-XI intact bilaterally Skin Skin: no rashes or lesions noted Extremities Pulses: Normal: Right Posterior Tibial Pulse, Left Posterior Tibial Pulse, Right Radial Pulse, Left Radial Pulse Lower Extremity Edema: None: Bilateral Psych Psychological: normal affect Assessment & Plan 1. Abnormal stress test R94.39 Plan As noted above, her most recent stress test on 11/29/2019 was considered to be abnormal. At this time, she will proceed with outpatient heart catheterization to evaluate further. Her last heart catheterization on 09/04/2018 showed an e jection of 55%, left main as angiographically normal, distal LAD with mild luminal irregularities less than 30%, circumflex artery as angiographically normal, and RCA as angiographically normal. Based on results, further recommendation will be made. 2. Palpitations R00.2 Plan This appears stable. She will continue current beta-pauline therapy. 3. Essential hypertension I10 Plan Patient's blood pressure is well-controlled. We will continue to monitor. We will not make any medication regimen changes. 4. Hyperlipidemia, unspecified hyperlipidemia type E78.5 Plan Lipid panel from 11/06/2019 showed cholesterol: 143, HDL: 58, LDL: 59, and triglycerides: 130. She will continue current statin medication. Plan Detail Additional Comments Her laboratory results were reviewed. She will proceed with outpatient heart catheterization on 12/06/[address] Rojas, bearing in mind no concerns on chest x-ray (which is currently pending). Thank you for allowing us to participate in the patients plan of care, if you have any questions please do not hesitate to call. This note was generated using a voice recognition system and there may be incorrect words, spelling or punctuation that were not noted when reviewing the office note prior to saving. Follow Up Keep as is Coding Level of Care Code Off vis,est,level 3 Diagnoses Abnormal stress test R94.39 Palpitations R00.2 Essential hypertension I10 Hypertension type: essential hypertension Hyperlipidemia, unspecified hyperlipidemia type E78.5 Hyperlipidemia type: unspecified Coding Level of Care Code Off vis,est,level 3 Diagnoses Abnormal stress test R94.39 Palpitations R00.2 Essential hypertension I10 Hypertension type: essential hypertension Hyperlipidemia, unspecified hyperlipidemia type E78.5 Hyperlipidemia type: unspecified Supplemental Info Supplemental Information Heart catheterization from 09/14/2018: CONCLUSIONS Non obstructive coronary arteries Segmented LV systolic dysfunction- Mild LVEF: by LV gram 55 % Normal Left Ventricular End Diastolic Pressure RECOMMENDATIONS ASA Indefinitely Start cozaar 25mg po daily for HTN and LV dysfunction. Manual sheath removal CORONARY ANGIOGRAPHY DOMINANCE: Right Dominant LEFT HEART ASSESSMENT Left Ventricular Ejection Fraction: by LV Gram 55 % Inferior Mid Hypokinesis - Mild Depressed Left Ventricular systolic function LVEDP: 8 mmHg Normal Left Ventricular End Diastolic Pressure LEFT MAIN: Angiographically normal LEFT ANTERIOR DESCENDING ARTERY: DISTAL LAD: Mild luminal irregularities less than 30% CIRCUMFLEX ARTERY: Angiographically normal RIGHT CORONARY ARTERY: Angiographically normal Stress echocardiogram from 11/29/2019: Interpretation Summary The estimated ejection fraction is 55 %. Mid-Anterior : Mildly hypokinetic Anterior [place] : Mildly hypokinetic Abnormal, adequate, treadmill echocardiogram. Positive for ischemia by EKG and echocardiographic criteria. No anginal symptoms noted. Rare PVC PACs noted. Patient developed [address] segment depression at 1 minute 14 seconds into exercise, to a maximum of 1.[address] segment depression at peak exercise. These changes persisted until 5 minutes 50 seconds into recovery. In addition the patient developed mid anterior septal and apical hypokinesis consistent with ischemia. Patient tolerate procedure well. Final LVEF of 45%. Test terminated due to attainment target heart rate and dyspnea which may be an anginal equivalent. Labs LDL Cholesterol 59 mg/dL (0-130) 11/06/19 HDL Cholesterol 58 mg/dL (40-) 11/06/19 Triglycerides 130 mg/dL (-199) 11/06/19 VLDL Cholesterol 26 mg/dL (5-40) 11/06/19 Diagnostics Echocardiogram 11/27/19 Stress Echocardiogram 11/29/19 Cardiac Catheterization 09/14/18 Chest X-Ray 12/04/19 Procedure Criteria Procedure Type: Elective COVID Risk Discussion: The surgeon/proceduralist and patient have discussed in detail the risk of exposure to and/or potential harm posed by the COVID-19 virus with having a surgery/procedure at this time versus the risk of delaying the surgery/procedure. It is not possible to know either the risk of delaying the surgery or procedure or chance of getting an infection with perfect accuracy, but a joint decision was made between the patient and the surgeon/proceduralist to proceed at this time with the scheduled surgery/procedure as indicated on the consent form.
[2019-12-06] VITALS (22 sets, daily range): BP systolic 109–149; BP diastolic 49–106; PULSE 59–77; RESP 15–24; TEMP 35.7–36.6; O2SAT 95–98; BMI 27.9; BMI 27.6
--- NOTE | 2019-12-06 09:03 | PCM.HP.BLA ---
Problem List (1) Abnormal stress test Status: Acute (2) Hyperlipidemia Status: Chronic Qualifiers: Hyperlipidemia type: unspecified Qualified Code(s): E78.5 - Hyperlipidemia, unspecified (3) Hypertension Status: Chronic Qualifiers: Hypertension type: essential hypertension Qualified Code(s): I10 - Essential (primary) hypertension (4) Palpitations Status: Chronic History and Physical Date of Admission: 12/06/19 History and Physical (Generic) Patient Name: LENIN BRAUN Date of : 1955 Patient Status: Surgical Day Care Attending Provider: Jordan Rojas Date: 12/05/19 17:02 Initialization Date: 12/05/19 17:02 History and Physical Date of Admission: 12/06/19 HPI HPI History of Present Illness Surgical H&P: Yes Details: Details: Mrs. Braun is a very pleasant 63-year-old female with a history of Jessica's thyroiditis, hypertension, hyperlipidemia, who was referred to us for abnormal stress test. A previous stress test was in 2004 at the [facility] which was negative. In addition she had not had any stress testing in the better part of 13 years. For surveillance purposes she was referred for repeat stress test. She underwent a exercise stress echo on 08/15/18 which was positive for ischemia specifically of the inferior inferoseptal and basal inferoseptal segments were all mildly hypokinetic. This gave way to a cardiac catheterization which took place on 09/14 at at [facility] which showed nonobstructive coronary disease. No intervention was performed. Patient had a virtual appointment with Dr. Rojas on 11/09/2019. During such conversation, she expressed shortness of breath on exertion. She underwent a stress echocardiogram on 11/29/2019 was considered to be abnormal. She denies chest, arm, jaw, or neck discomfort. Her exercise tolerance is stable. She denies symptoms of palpitations, lightheadedness, dizziness, near syncope, or syncopal episodes. She denies edema or claudication issues. She denies orthopnea, PND, fever, chills, blood in urine, blood in stool, myalgia, or unexplainable fatigue. Beyond episode of dyspnea on exertion describe during virtual appointment on 11/09/2019, she denies recurring shortness of breath. Intake Vital Signs See EMR Medications See EMR Intake Visit Reasons: COMING IN/Update H&P for cath on 12/05 Allergies adhesive tape Adverse Reaction (Intermediate, Verified 04/13/19 15:35) Rash [facility] Social History (Updated 12/04/19 @ 12:18 by YEIMY OrtegaC) Smoking Status: Never smoker ROS Const Const: Negative for fatigue, weakness, body ache, fever(s) or chills ENT ENT: Negative for dizziness Cardio Chest Pain: No Palpitations: No Edema: None Muscle aches with walking: None Resp Respiratory: Positive for SOB with activity; negative for SOB at rest, SOB orthopnea\SOB lying down or paroxysmal nocturnal dyspnea GI GI: Negative nausea, vomiting blood/hematemesis, bright, red blood in stools or black,tarry stools : Negative for hematuria or frequent nighttime urination/ nocturia Musc Musc: Negative for muscle aches/ myalgia Skin Skin: Negative non-healing lesions or rash Neuro Neuro: Negative for dizziness, lightheadedness, near syncope, syncope, orthostatic symptoms or weakness Endo Endo: Negative for fatigue Allergy Allergy/Immunology: Negative for rash Cardiology Exam Const Appearance: cooperative, healthy appearing, comfortable and no acute distress Nutritional Appearance: well nourished and overweight Orientation: alert, awake and oriented x3 Head Head: normal to inspection Ears: hearing grossly normal bilaterally Nose: external nose normal Face and Sinus: face symmetric Mouth: oral mucosae normal Eyes General: appearance normal, both eyes and all related structures Eyelids: eyelids normal EOM: EOM intact bilaterally Neck Neck: normal visual inspection and no JVD Carotids: normal carotid upstroke Chest Chest inspection: normal inspection of the chest, symmetric chest movement and normal respiratory effort; negative cough Auscultation: Bilateral: Clear to Auscultation Cardio Rate: regular rate Rhythm: regular rhythm Heart sounds: S1 normal and S2 normal; negative rub, gallop or murmur GI GI: normal to inspection Neuro General: alert, awake, oriented x3 and CN's II-XI intact bilaterally Skin Skin: no rashes or lesions noted Extremities Pulses: Normal: Right Posterior Tibial Pulse, Left Posterior Tibial Pulse, Right Radial Pulse, Left Radial Pulse Lower Extremity Edema: None: Bilateral Psych Psychological: normal affect Assessment & Plan 1. Abnormal stress test R94.39 Plan As noted above, her most recent stress test on 11/29/2019 was considered to be abnormal. At this time, she will proceed with outpatient heart catheterization to evaluate further. Her last heart catheterization on 09/04/2018 showed an ejection of 55%, left main as angiographically normal, distal LAD with mild luminal irregularities less than 30%, circumflex artery as angiographically normal, and RCA as angiographically normal. Based on results, further recommendation will be made. 2. Palpitations R00.2 Plan This appears stable. She will continue current beta-pauline therapy. 3. Essential hypertension I10 Plan Patient's blood pressure is well-controlled. We will continue to monitor. We will not make any medication regimen changes. 4. Hyperlipidemia, unspecified hyperlipidemia type E78.5 Plan Lipid panel from 11/06/2019 showed cholesterol: 143, HDL: 58, LDL: 59, and triglycerides: 130. She will continue current statin medication. Plan Detail Additional Comments Her laboratory results were reviewed. She will proceed with outpatient heart catheterization on 12/06/[address] Rojas, bearing in mind no concerns on chest x-ray (which is currently pending). Thank you for allowing us to participate in the patients plan of care, if you have any questions please do not hesitate to call. This note was generated using a voice recognition system and there may be incorrect words, spelling or punctuation that were not noted when reviewing the office note prior to saving. Follow Up Keep as is Coding Level of Care Code Off vis,est,level 3 Diagnoses Abnormal stress test R94.39 Palpitations R00.2 Essential hypertension I10 Hypertension type: essential hypertension Hyperlipidemia, unspecified hyperlipidemia type E78.5 Hyperlipidemia type: unspecified Coding Level of Care Code Off vis,est,level 3 Diagnoses Abnormal stress test R94.39 Palpitations R00.2 Essential hypertension I10 Hypertension type: essential hypertension Hyperlipidemia, unspecified hyperlipidemia type E78.5 Hyperlipidemia type: unspecified Supplemental Info Supplemental Information Heart catheterization from 09/14/2018: CONCLUSIONS Non obstructive coronary arteries Segmented LV systolic dysfunction- Mild LVEF: by LV gram 55 % Normal Left Ventricular End Diastolic Pressure RECOMMENDATIONS ASA Indefinitely Start cozaar 25mg po daily for HTN and LV dysfunction. Manual sheath removal CORONARY ANGIOGRAPHY DOMINANCE: Right Dominant LEFT HEART ASSESSMENT Left Ventricular Ejection Fraction: by LV Gram 55 % Inferior Mid Hypokinesis - Mild Depressed Left Ventricular systolic function LVEDP: 8 mmHg Normal Left Ventricular End Diastolic Pressure LEFT MAIN: Angiographically normal LEFT ANTERIOR DESCENDING ARTERY: DISTAL LAD: Mild luminal irregularities less than 30% CIRCUMFLEX ARTERY: Angiographically normal RIGHT CORONARY ARTERY: Angiographically normal Stress echocardiogram from 11/29/2019: Interpretation Summary The estimated ejection fraction is 55 %. Mid-Anterior : Mildly hypokinetic Anterior [place] : Mildly hypokinetic Abnormal, adequate, treadmill echocardiogram. Positive for ischemia by EKG and echocardiographic criteria. No anginal symptoms noted. Rare PVC PACs noted. Patient developed [address] segment depression at 1 minute 14 seconds into exercise, to a maximum of 1.[address] segment depression at peak exercise. These changes persisted until 5 minutes 50 seconds into recovery. In addition the patient developed mid anterior septal and apical hypokinesis consistent with ischemia. Patient tolerate procedure well. Final LVEF of 45%. Test terminated due to attainment target heart rate and dyspnea which may be an anginal equivalent. Labs LDL Cholesterol 59 mg/dL (0-130) 11/06/19 HDL Cholesterol 58 mg/dL (40-) 11/06/19 Triglycerides 130 mg/dL (-199) 11/06/19 VLDL Cholesterol 26 mg/dL (5-40) 11/06/19 Diagnostics Echocardiogram 11/27/19 Stress Echocardiogram 11/29/19 Cardiac Catheterization 09/14/18 Chest X-Ray 12/04/19 Procedure Criteria Procedure Type: Elective COVID Risk Discussion: The surgeon/proceduralist and patient have discussed in detail the risk of exposure to and/or potential harm posed by the COVID-19 virus with having a surgery/procedure at this time versus the risk of delaying the surgery/procedure. It is not possible to know either the risk of delaying the surgery or procedure or chance of getting an infection with perfect accuracy, but a joint decision was made between the patient and the surgeon/proceduralist to proceed at this time with the scheduled surgery/procedure as indicated on the consent form. Interventional cardiology addendum: Patient was seen and examined prior to her catheterization, and the risk/benefits of the procedure were thoroughly explained to the patient including specific attention to lack of onsite surgical backup, and the patient agrees to proceed. Catheterization to follow.
[2019-12-06 10:26] LABS: ACT Activated Clotting Time 213 sec (74-137)
--- NOTE | 2019-12-06 10:38 | CL.I_ITS ---
Patient Name: LENIN BRAUN Study Date: 12/06/2019 Performing: Jordan Rojas MD Ht: 65 inches 165.1 cm : 1955 Wt: 168.8 lbs 76.47 kg Age: 63 Gender: female BSA: 1.84 PROCEDURE(S) PERFORMED [id number]-LQE/COR/LV [id number]-NUY, CORONARY OR GRAFT, INITIAL VESSEL [id number] W OR WO PTCA, SINGLE CORONARY ARTERY CLINICAL PROFILE AND CO-MORBIDITIES Indications: Stable Known CAD Heart Failure: None Stress/Imaging Date: 11/29/2019 Stress Echocardiogram: Positive Low Risk Angina Classification Anginal Classification w/in 2 Weeks: Anginal Equivalent Dyspnea CAD Presentations: Other: Dyspnea on exertion Comorbidities/Risk Factors: Hypertension Dyslipidemia CONCLUSIONS Normal LV size, wall motion,and systolic function Perserved Left Ventricular systolic function with normal EDP Single vessel CAD of the mid LAD Non obstructive coronary arteries Successful PTCA/JEANNE with FFR assitance to mid LAD, utilizing a 2.25 x 16 Promus Synergy stent at 12 a tm; 75%-->0%, no dissection. FFR pre stent=0.82, post stent 0.95. Given borderline FFR, abnl stres s test with susan-apical ischemia, and dyspnea, and after d/w pt the options, we agreed to proceed w ith PCI of mid LAD. RECOMMENDATIONS Referred for immediate PCI Staged for FFR Highly recommend quitting all tobacco products Follow up with primary shaping machine operator Risk factor modification ASA Indefinitley Plavix for at least 12 months Routine post interventional care Refer for Outpatient Cardiac Rehab Manual sheath removal per protocol Follow up with Dr. Rojas Successful Mynx Control closure of RFA. DESCRIPTION OF PROCEDURE The patient arrived to the procedure lab. The risks and benefits of the procedure as well as a full d escription of our services here and lack of surgical backup were fully explained to the patient and/o r their significant other prior to the catheterization. The Timeout was completed, verifying the opal ect patient and procedure. The patient's procedural site was prepped and draped in the usual fashion. Local anesthetic was given subcutaneously to right groin region with Lidocaine 2%. Using a modified Seldinger technique, arterial access was obtained via the right femoral artery, a 4Fr sheath was inse rted. Left Coronary Artery selective angiography was performed in multiple views using a 4 Fr. JL5 c atheter. Right Coronary Artery selective angiography was then performed in multiple views using a 4 F r. 3DRC catheter. Left Ventriculography was performed in ELIZONDO projection using a 4 Fr. Pigtail cathete r. LV to AO pullback pressures were then recordedThe images were reviewed and options discussed. A decision was then made to proceed with an Intervention, IVUS or other adjunct procedure. Arterial sheath was exchanged for a 6 Fr Sheath. EBU 3.5 Guide catheter was inserted and engaged into the LCA. Adenosine was then given per protocol. Pressures and FFR/iFR were then recorded. FFR Ra chase Baseline: 0.98 FFR Ratio post Adenosine: 0.82 The FFR/iFR wire was then removed. FFR Guide wire w as advanced to the LAD. 2.25x16 synergy Drug Eluting stent was advanced across the lesion in the LAD, mid. Angiogram performed post stent deployment. The FFR/iFR wire was inserted. Adenosine was then gi sharmin per protocol. Pressures and FFR/iFR were then recorded. FFR Ratio Baseline: 1.0 FFR Ratio post Ad enosine: 0.89 The FFR/iFR wire was then removed. The arterial sheath was pulled and a Mynx closure device was deployed for hemostasis CORONARY ANGIOGRAPHY DOMINANCE: Right Dominant LEFT HEART ASSESSMENT Left Ventricular Ejection Fraction: by LV Gram 65 % Normal Left Ventricular systolic function Normal LV wall motion. Normal LV wall motion LEFT MAIN: Angiographically normal LEFT ANTERIOR DESCENDING ARTERY: MID LAD: 75 % Stenosis CIRCUMFLEX ARTERY: Non-obstructive RIGHT CORONARY ARTERY: Angiographically normal INTERVENTION INFORMATION LESION SITE: LAD (Mid) Lesion Complexity: Non-High/Non-C, lesion at bifurcation: No, thrombus present: No, lesion length: 16 mm, culprit lesion: Yes Pre Stenosis: 75 % Pre intervention JACKIE flow: 3 PROCEDURE: Drug Eluting Stent Post Stenosis: 0 % Post intervention JACKIE flow: 3 Lesion Devices: OurStage 6 Fr EBU3.5 100cm Guide Catheter IGT Devices ( Formerly [employer]) Coronary FFR Wire [employer] Synergy MR JEANNE 2.25x16 COMPLICATIONS No Complications PROCEDURE MEDICATIONS Oxygen: 2 L/min via nasal cannula Adenosine drip for FFR 21.3 ml IV 12/06/2019 10:03:53 Adenosine drip for FFR 21.3 ml IV @ 12/06/2019 10:03:53 Heparin 6000 unit(s) IV 12/06/2019 09:57:38 Nitro 200 mcg IC 12/06/2019 09:49:42 Nitro 200 mcg IC 12/06/2019 09:49:42 Nitro 200 mcg IC 12/06/2019 09:58:35 IV Bolus: .9 NaCl 350 ml total 12/06/2019 10:18:59 SUMMARY OF HEMODYNAMIC DATA Time AIR REST ECG 08:15:01 ECG 09:36:31 AO 156/72 (104) SA 09:47:20 LV 144/-17, 5 09:55:18 LV 152/-20, 11 09:55:24 LVp 143/-12, 11 09:55:28 AOp 136/60 (90) 09:55:33 Signed By Jordan Rojas MD On 12/06/2019 10:37:02 Jordan Rojas MD
--- NOTE | 2019-12-06 10:39 | DCINST_ITS ---
Discharge Diet: Low fat/ Low Cholesterol Discharge Activity: Return to Normal Activity May shower in (days): 1 - No tub baths for 5 days May resume sexual activity in: 1-2 weeks Lifting Restrictions: Do not lift anything greater than 10 pounds for 3 days Call your doctor if your incision/area has: Continuous Slow Oozing, Sudden Increased Bleeding, Increased Pain/ Swelling, Increased Redness, Foul Smelling Discharge, Swelling at the incision site Call your doctor if you observe: Fever of 101 or Higher, Shortness of breath, Chest pain Remove Dressing in (days):: 1 Cleanse incision/area with: Soap & Water Additional Instructions: He will continue with Aspirin and Plavix therapy. If anyone asked you to stop your Plavix therapy, please call the [facility] first. The goal is to remain on Plavix therapy continuously for at least 1 year from time of stent placement. You continue other medications such as aspirin, losartan, and propanolol. You are scheduled for an office appointment in approximately 2-4 weeks to evaluate overall progress and consider cardiac rehab. If you have any questions or concerns at any point, please call [facility] at [phone], option 4. Allergies/Adverse Reactions: Allergies adhesive tape Adverse Reaction (Intermediate, Verified 04/13/19 15:35) Rash Medications to take at Discharge atorvastatin 10 mg tablet 10 mg PO QHS 08/23/18 calcium carb 300 mg-D3 800 unit-mag ox 25 mg-telescope operator 0.5 mg-yesenia-Zn tablet 1 tab PO DAILY 08/23/18 cholecalciferol (vitamin D3) 25 mcg (1,000 unit) capsule 1,000 unit PO DAILY 08/23/18 xillrsdd-lzm-nvwgg acid 0.4 mg-lycopene 300 mcg-lutein 250 mcg tablet 1 tab PO DAILY 08/23/18 propranolol 20 mg tablet 10 mg PO BID #90 tab 04/13/19 aspirin 81 mg tablet,delayed release 81 mg PO DAILY #90 tab 08/14/19 losartan 25 mg tablet 25 mg PO DAILY #90 tab 08/14/19 clopidogrel 75 mg tablet 75 mg PO QDAY #90 tab 12/07/19 The following prescriptions were given: clopidogrel 75 mg tablet 75 mg PO QDAY #90 tab Transmission Status: Pending to [id number] Primary Care Physician: Yana Soto MD [Primary Care Provider] - Test Results: Test results from this visit will be discussed in further detail at your follow- up appointment, if applicable. Cardiac Rehabilitation Info Cardiac Rehabilitation Program Information: Cardiac Rehabilitation is important for patients like you who are recovering from a heart problem. Cardiac rehabilitation programs are recognized as integral to the continued care of the patient with coronary heart disease. The cardiac rehabilitation program is designed to optimize a patient's physical, psychological, and social functioning. Health aged or disabled care worker work in cardiac rehabilitation programs and assist you with getting the treatments you need to get stronger and healthier - like exercise, healthy eating habits, and medications. Cardiac rehabilitation has been show to help people with heart problems live longer and have better life enjoyment than people who do not go to cardiac rehabilitation. Please contact the Cardiac Rehabilitation Program at [facility] at in two weeks if you have not heard from them.
--- NOTE | 2019-12-06 10:42 | PCM.PN.BLA ---
Progress Note Aspirin at discharge? Yes, 81 mg p.o. daily Antiplatelet therapy at discharge? Yes, Plavix 75 mg p.o. daily DASHA/ARB at discharge? Yes, losartan 25 mg p.o. daily Statin at discharge? Yes, atorvastatin 10 mg p.o. daily Beta-pauline at discharge? Yes, propanolol 10 mg p.o. twice daily
--- NOTE | 2019-12-06 10:48 | EKG12_ITS ---
Test Reason : POST PCI Blood Pressure : / mmHG Vent. Rate : 064 BPM Atrial Rate : 064 BPM P-R Int : 154 ms QRS Dur : 088 ms QT Int : 420 ms P-R-T Axes : 062 028 -87 degrees QTc Int : 433 ms Normal sinus rhythm ST & T wave abnormality, consider inferior ischemia ST & T wave abnormality, consider anterolateral ischemia Abnormal ECG No previous ECGs available Confirmed by JEFFREY SHUKLA, LUZ ([id number]), assistant editor ROSAMARIA LANGSTON ([id number]) on 12/11/2019 1:24:00 PM Referred By: Jordan Rojas Confirmed By:LUZ MURPHY MD
[2019-12-06] MEDS: 0.9% Normal Saline 1,000 ML 150 ML IV (11:06)
--- NOTE | 2019-12-06 12:26 | CRPHASE1 ---
Patient Communication Former Patient:: Phase I PHII Cardiac Rehab Discussed with Patient:: Yes Guide to Cardiac Rehab Given to Patient:: Yes Cardiac Rehab Facility Choice List Given to Patient:: Yes Choice Program [facility] CR PHII:: Communication Given to CR Cyanide Furnace Operator:: Jordan Rojas Refer Phase II Cardiac Rehab:: Yes Choice Letter Given to Patient:: Yes Guide to Cardiac Rehab Given by ICU Staff Prior to Discharge: Yes Risk Factors/Lifestyle Smoking Status: Never smoker Second-Hand Smoke:: No Hx Hypertension: Yes Hx Diabetes Mellitus Type 1: No Hx Diabetes Mellitus Type 2: No Hx Metabolic Disorders: No Hx Dyslipidemia: No Hx Obesity: No Post-Menopausal: Yes ETOH: No Caffeine: No Substance Abuse: No Family History: Family History (Last Reviewed 11/09/19 @ 09:09 by Lyndsey Salas) Mother Breast cancer, Onset Age: 85 Father Hypertension Skin cancer Cardiac Rehabilitation Info Cardiac Rehabilitation Program Information: Cardiac Rehabilitation is important for patients like you who are recovering from a heart problem. Cardiac rehabilitation programs are recognized as integral to the continued care of the patient with coronary heart disease. The cardiac rehabilitation program is designed to optimize a patient's physical, psychological, and social functioning. Health senior resident care director work in cardiac rehabilitation programs and assist you with getting the treatments you need to get stronger and healthier - like exercise, healthy eating habits, and medications. Cardiac rehabilitation has been show to help people with heart problems live longer and have better life enjoyment than people who do not go to cardiac rehabilitation. Please contact the Cardiac Rehabilitation Program at [facility] at in two weeks if you have not heard from them.
--- NOTE | 2019-12-06 12:29 | CRPH1.INSTRU ---
General Education CAD and cardiac anatomy and function:: Patient communicates acknowledgment Explanation of diagnoses and procedures:: Patient communicates acknowledgment Sign/Symptoms of ID:: Patient communicates acknowledgment Antiplatelet therapy: Patient communicates acknowledgment Proper use of NTG-SL: Patient communicates acknowledgment Emergency procedures and activation of EMS: Patient communicates acknowledgment Compliance of all prescribed medications: Patient communicates acknowledgment Overweight/Obesity Patient Overweight/Obesity Risk Factors Are:: BMI Normal [24-29 & > 65 years old] Recommendations Include:: Weight loss of 5-10%, Exercise 5-7 times/week Overweight/Obesity:: Patient communicates acknowledgment Hypertension Recommendations Include:: Maintain BP <130/85, DASH dietary guidelines, Decrease/maintain normal body weight Hypertension:: Patient communicates acknowledgment Sedentary Patient Sedentary Risk Factors Are:: Lack of regular exercise Recommendations Include:: Aerobic exercise 5-7 times/week for 20-30 minutes continuously, Benefits of regular exercise, Discussed home walking program, Monitored Outpatient Cardiac Rehab Sedentary Response Code:: Patient communicates acknowledgment
[2019-12-06] MEDS: Atorvastatin Calcium 10 MG Tablet PO (22:11)
[2019-12-06] MEDS: Propranolol 10 MG Tablet PO (22:11)
[2019-12-07] VITALS (13 sets, daily range): BP systolic 107–131; BP diastolic 53–83; PULSE 57–73; RESP 14–19; TEMP 35.7–36.3; O2SAT 95–98
[2019-12-07] MEDS: 0.9% Saline Lock 10 ML Syringe IV (04:40)
[2019-12-07 04:46] LABS: Hematocrit 37.8 % (37-47); Hemoglobin 11.9 g/dL (12.0-15.0); Mean Corp Hgb Conc 31.5 g/dL (32-36); Mean Corpuscular Hgb 30.8 pg (27.0-32.0); Mean Corpuscular Volume 97.9 fL (81-99); Mean Platelet Vol. 9.6 fl (6.2-12.0); Platelet Count 242 K/mm3 (150-450); RBC Distribution Width CV 12.9 % (11.6-14.6); RBC Distribution Width SD 46.4 fl (35.1-43.9); Red Blood Count 3.86 M/mm3 (4.2-5.4); White Blood Count 8.4 K/mm3 (4.4-11.0)
[2019-12-07 04:59] LABS: ALB/GLOB Ratio 0.9 RATIO (0.9-2.4); AST(SGOT) 21 U/L (15-37); Alanine Aminotransfer ALT/SGPT 23 U/L (13-56); Albumin, Serum 3.6 g/dL (3.2-5.0); Alkaline Phosphatase 83 U/L (45-117); Anion Gap 7 (5-15); BUN 19 mg/dL (7-18); BUN/Creat Ratio 29.6 RATIO (10-20); Calcium,Total 8.6 mg/dL (8.5-10.1); Chloride 107 mmol/L (98-107); Creatinine, Serum 0.64 mg/dL (0.55-1.02); EST Glomerular Filtration Rate 99 mL/min (>60); Est Glom Filt Rate - Afr Amer 119 mL/min (>60); Estimated Creatinine Clearance 82.04 ml/min; Globulin 3.9 g/dL (2.2-4.2); Glucose 96 mg/dL (74-106); Potassium 4.1 mmol/L (3.5-5.1); Protein, Total 7.5 g/dL (6.4-8.2); Sodium Level 140 mmol/L (136-145)
[2019-12-07] MEDS: Clopidogrel Bisulfate 75 MG Tablet PO (08:12)
[2019-12-07] MEDS: Aspirin E.C. 81 MG Tablet PO (08:12)
[2019-12-07] MEDS: Propranolol 10 MG Tablet PO (08:12)
[2019-12-07] MEDS: Losartan Potassium 25 MG Tablet PO (08:12)
--- NOTE | 2019-12-07 08:36 | PN.CARD_ITS ---
Subjectve: Patient doing very well, no 24-hour events. Telemetry with normal sinus rhythm with rare PVCs. No chest pain, angina or shortness of breath. Right groin is clean/dry/intact without evidence of thrills, bruits or hematoma. 2+ DP and PT pulses bilaterally. Hemoglobin and creatinine are within nominal limits. EKG shows normal sinus rhythm with old anterior ST segment depression and T wave inversion. No acute changes. Objective: Vital Signs Temp Pulse Resp BP Pulse Ox 96.7 F L 67 19 H 122/69 H 96 12/07/19 07:41 12/07/19 07:50 12/07/19 07:41 12/07/19 07:41 12/07/19 07:41 Oxygen Delivery Method Room Air Weight: 172 lb Body Mass Index (BMI) 27.6 Intake and Output for Last 24 Hours 12/05/19 12/06/19 12/07/19 23:59 23:59 23:59 Intake Total 1600 / 1600 150 / 150 Output Total 650 / 650 Balance 950 / 950 150 / 150 General: Awake, Alert, Oriented x 3 HEENT: PERRL, EOMI, Sclera Non Icteric Neck: Supple, Good ROM, No Lymph Node Enlargement Lungs: Clear to auscultation Cardiovascular: Regular Rhythm, Normal S1, Normal S2, No Murmurs, No Rubs, No Gallops Vascular: No Carotid Bruits, Normal Femoral Pulses, Normal Radial Pulses, Normal Dorsalis Pedal Pulse, Normal Posterior Tibial Pulses Abdomen: Bowel Sounds Present, Soft, Non Tender, No HSM, No Organomegaly Extremities: No Cyanosis, No Clubbing, No edema Neurological: No Focal Motor or Sensory Deficit 12/07/19 04:30: WBC 8.4, RBC 3.86 L, Hgb 11.9 L, Hct 37.8, MCV 97.9, MCH 30.8, MCHC 31.5 L, Plt Count 242, MPV 9.6 12/07/19 04:30: Sodium 140, Potassium 4.1, Chloride 107, Carbon Dioxide 26.0, Anion Gap 7, BUN 19 H, Creatinine 0.64, Est GFR (MDRD) Af Amer 119, Est GFR (MDRD) Non-Af 99, BUN/Creatinine Ratio 29.6 H, Glucose 96, Calcium 8.6, Total Bilirubin 0.80 Rhythm: EKG: ECHO: Stress Test: Cardiac Cath: PCI: CT Surgery: Holter monitor: EPS: PPM: CXR: Chest CT Scan: Medical Necessity - Tobacco Use Smoking Status: Never smoker Assessment/Plan 1. Coronary artery disease: Patient is status post FFR guided angioplasty and stenting to her mid LAD after abnormal stress test for mid anterior apical ischemia. She is remained chest pain-free overnight, and telemetry has been negative except for rare PVCs. Her groin is intact. The patient will continue her aspirin, Plavix, losartan and propanolol. The patient be arranged for discharge today follow-up with Dr. Rojas, and cardiac rehab in 2 weeks time once her groin is healed. 2. Hyperlipidemia: Continue Lipitor. Repeat lipid profile after cardiac rehab is completed. 3. Patient may be discharged home. Inpatient E&M: [id number] [facility] L2
--- NOTE | 2019-12-07 10:00 | EKG12_ITS ---
Test Reason : AM EKG Blood Pressure : / mmHG Vent. Rate : 067 BPM Atrial Rate : 067 BPM P-R Int : 136 ms QRS Dur : 096 ms QT Int : 406 ms P-R-T Axes : 014 052 -71 degrees QTc Int : [address] & T wave abnormality, consider inferior ischemia ST & T wave abnormality, consider anterolateral ischemia Abnormal ECG When compared with ECG of 06-DEC-2019 10:54, MANUAL COMPARISON REQUIRED, DATA IS UNCONFIRMED Confirmed by JEFFREY SHUKLA, LUZ ([id number]), order editor ROSAMARIA LANGSTON ([id number]) on 12/11/2019 1:23:45 PM Referred By: Jordan Rojas Confirmed By:LUZ MURPHY MD
== END 2019-12-07 10:17 | disposition home or self-care (01) ==
LOC: CLSP 07:50 → ICU 10:55
PROVIDERS: Nurse Practitioner Family; PCP Internal Medicine; Referring Provider Internal Medicine Cardiovascular Disease; Visit Provider Internal Medicine Cardiovascular Disease
DX: I25.10 Atherosclerotic heart disease of native coronary artery without angina pectoris (principal); R06.00 Dyspnea, unspecified; R94.39 Abnormal result of other cardiovascular function study; E78.5 Hyperlipidemia, unspecified; I10 Essential (primary) hypertension; R00.2 Palpitations; E06.3 Autoimmune thyroiditis; Z79.02 Long term (current) use of antithrombotics/antiplatelets; Z79.82 Long term (current) use of aspirin; Z79.899 Other long term (current) drug therapy
CPT/HCPCS: 36415; 71046; 80048; 80053; 85025; 85027; 85347; 85610; 85730; 92928; 93005; 93458; 93571; C1760; J0153; J7030; J7040; Q9967; A4216; C1769; C1874; C1887; C1894; C9600

== ENCOUNTER → 2019-12-19 | Outpatient (CLI) | payer OTHER, SELFPAY ==
[2019-12-06 10:49] VITALS: BMI 27.6
--- NOTE | 2019-12-19 07:59 | PCM.CR.ITP ---
Diagnosis - General Information Admitting Diagnosis: ADNORMAL STRESS TEST/ PCI INTERVENTION W/CORONARY STENTING Secondary Diagnosis: I25.10, E78.5, I10, R00.2 Personal Learning Style:: Written Barriers to Learning: Vision Impairment Stage of change r/t lifestyle modifications:: Action Gave educational material for:: Treating Heart Disease, Emotions & Heart Disease, Stress Management & Relaxation, Sleep Disorders & Heart Disease, How The Heart Works, What it means to have Heart Disease, How Coronary Artery Disease is Diagnosed, Heart Procedures, What Heart Medications Do, Risk Factors & Modifications, Living an Active Life, Nutrition - Education/Goals Individual Counseling: Initial Assessment: Abnormal Cholesterol Levels, High Blood Pressure Cardiac Rehabilitation Goals: 1. Maintain the individual as the primary focus of care. 2. To improve the patient's quality of life. 3. Identification of cardiac risk factors and provide cardiac risk factor management. 4. Enhance the psychosocial status of the patient. 5. Reconditioning enough to allow the patient to resume customary activities. 6. Control symptoms of cardiac disease Personal Goals: Initial Assessment: Improve energy level, Participate in home exercise program, Improve knowledge of cardiac disease, Improve muscle strength and endurance, Improve diet and eating habits (eat healthier), Control risk factors (learn risk factor modification) Scale for measuring improvement of personal goals: Enter appropriate number in Comments. 2 = Unchanged. 3 = Slightly Better. 4 = Moderate Improvement. 5 = Met my Goal - Diagnosis & Disease Process Outcomes/Goals: Pt IDs own risk factors & lifestyle modifications by Session 10, Verbalizes symptoms of angina & response by session 3., Pt independently manages Plan/Interventions: Assist Pt to ID & engage in lifestyle modification to reduce CVD risk, Instruct on individual risk factors, Review symptoms of angina & emergency actions, Review secondary diagnosis & identify educational needs. - Safety Referral to Physical Therapy: No Referral to [facility] Case Management: No Fall Risk Assessed:: Yes Assistive Devices:: None Exercise - Initial Assessment - Visit Date of Eval: 12/19/19 Session #:: 0 - INITIAL EVALUATION PRE CARDIAC REHAB Mets: Pre-: >7 METS for 30 minutes by discharge - Physician Prescribed Exercise Modalities: Treadmill, Airdyne, NuStep Frequency: 3x/week for 12 weeks [36 sessions] Intensity: 60-80% maximum heart rate reserve from GXT Target Heart Rate:: 100-131 Maximum Excercise HR:: 151 Resting Blood Pressure: 142/82 Maximum Exercise Blood Pressure: 182/74 EKG Type: NORMAL SINUS RHYTHM @ REST ABNORMAL ST DEPRESSION, PVC and PAC W/TEST - Outcomes & Goals Goals:: Verbalizes understanding of THR, RPE & goal METS by session 6, Documents in home exercise log/reports 30 min aerobic 5 day/wk by DC, Demonstrates accurate pulse taking by DC - Intervention & Plan Exercise Program Goals: Instruct on personal THR & RPE, Instruct on MET level & personal MET goal, Show patient to take own pulse /validate performance until accurate, Instruct on home exercise - Physical Activity Home Exercise Physical Activity - Home Exercise: Safe Exercise, Warm-up, Self-monitoring, Cool-Down, Home Exercise > 30 min Daily, Sitting Time <3 hours/daily - Outcomes & Goals Outcomes/Goals: Demonstrates correct Warm-up/exercise Cool-Down (S3) if = 2.5 METs, Verbalizes symptoms of exercise intolerance by Session 3 (S3), Demonstrate safe equipment use (S3) & follows exercise prescrition (6) - Intervention & Plan Plan/Intervention: Instruct warm-up & cool-down if exercising at > 2 METs, Instruct on symptoms of exercise intolerance & actions to take, Instruct & monitor on saf, Assess intial functional capacity & safety risk Nutrition - Initial Assessment - Program Goals Nutrition Program Goals: LDL <100 optimal. 100 - 129 Near optimal. 130 - 159 Borderline High. 160 - 189 High. Total Cholesterol <200 desirable. 200 - 239 Borderline High. >/= 240 High. HDL < 40 Low >/=60 High. Triglycerides <150 desirable. <199 optimal. VlDL 5 - 40. HgbA1C <7%. BMI <25 Patient has diagnosis of Hyperlipidemia (ICD E78)?: Yes - Visit Date of Assessment:: 12/19/19 Session #:: 0 - INITIAL EVALUATION PRE-CARDIAC REHAB - Cholesterol/Lipids Triglycerides (mg/dL): 130 - 11/06/2019 Total Cholesterol (mg/dL): 143 LDL Cholesterol (mg/dL): 59 HDL Cholesterol (mg/dL): 58 Determine presence & major risk factors that modify LDL goal: Hypertension or hypertensive medication, Age men > 45 years; women >/= 55 years Outcomes/Goals: Pt IDs own risk factors & lifestyle modifications by Session 10, Verbalizes symptoms of angina & response by session 3., Pt independently manages Intervention/Plan: Instruct on personal lipid levels & lipid goals/NCEP guidelines, Instruct on cholesterol Referral to dietitian:: Yes - MEDICAL NUTRITION THERAPY - Diabetes (Other Core Measures) Diabetes Type: Not Applicable - Weight Mgt (Other Care) Not Applicable: Yes Height: 5 ft 7 in Weight:: 166 lb BMI: 25.9 Diagnosis Overweight/Obesity BMI> 30% ICD-10 E66: No Diagnosis High BMI/Morbid Obesity BMI> 35% ICD-10 Z68: No Outcomes/Goals: Pt sets, maintains & shows weight loss goal & trend during rehab Intervention/Plan: Instruct on ideal BMI & set weight loss goal w/patient - Healthy Eating Habits Will attend diet classes:: Yes Outcomes/Goals:: Consume diet rich in vegs,fruits,whole grain/high fiber,fish,lean meat, Limit sat/trans fats,cholesterol & added salts & sugars Intervention/Plan:: Assess current eating habits - Education Gave educational materials for:: Healthy eating Medical - Initial Assessment - Visit Date of Eval: 12/19/19 Session #:: 0 - INITIAL EVALUATION PRE-CARDIAC REHAB - Medication Compliance H/O mental health issues: depression, anxiety, or addiction?: No Doesn?t believe in the benefits of treatment?: No Believes medications are unnecessary or harmful?: No Has a concern about medication side effects?: No Expresses concern over the cost of medications?: No Outcomes/Goals: Verbalizes medications,desired effect & common side effects @ DC, Pt self-reports following medication regimen, Keeps card in wallet w/medications listed by DC Interventions/plans: Instruct on medication effects & side effects, Review medication list w/patient every two weeks, Instruct importance of taking meds as ordered & assist problem solving - Tobacco Use Tobacco Use: Non-smoker - Hypertension Hypertension Diagnosis:: Hypertension ICD-10 I10 Resting Blood Pressure:: 110/72 [place] [employer] Hypertension Guidelines: [place] [employer] Hypertension Guidelines. Normal BP Less than 120/80. Elevated BP 120/80. Hypertension Stage 1: BP 130-139/80-89. Hypertesnion Stage 2: BP 140 or higher/90 or higher. Hypertension Crisis: BP higher than 180/120 Peak Exercise Blood Pressure:: 182/74 Outcomes/Goals: Able to verbalize/achieve optimal blood pressure <130/80, Incorporates diet changes & exercise for blood pressure control by DC Interventions/plan: Instruct on optimal blood pressure, hypertension & medications, Instruct on effects of sodium, alcohol, stress, exercise &hypertension - Tobacco Cessation Referral Smoking Cessation Referral:: No Individual Education/Counseling:: No Education Schedule Given:: Yes Psychosocial - Initial Assess - VIsit Date of Eval: 12/19/19 Session #:: 0 - INITIAL EVALUATION PRE-CARDIAC REHAB Not Applicable: Yes History of previous Mental disease:: No - Target Goals Target Goals: Assess presence or absence of depression. Using a valid screening tool, maximizes coping skills. Positive support system - Psychosocial Test Tool Used:: Harris Barillas QOL Cardiac, PHQ-9 Questionnaire phq-9 Severity: Severity. 1-4 Minimal Depression. 5-9 Mild Depression. 10-14 Moderate Depression. 15-19 Moderately Sever Depression. 20-27 Severe Depression. Rule: - Referral to Behavioral Health PS - Interventions: Yes Attend Stress Management Classes, No Referral to Behavioral Health if PHQ-9 score >9:, No Referral to [facility], No Referral to Physician if PHQ-9 if score is 5-9: - Outcomes/Goals: See list Psychosocial Outcomes/Goals:: ID's personal stressors & 2 strategies to manage stress by discharge - Intervention/Plan: See List Interventions/Plan:: Assess stressors,coping strategies & signs of derpression on admission, Instruct/assist pt to develop coping & personal stress Mgt strategies, Instruct patient to recognize signs & symptoms of depression, Instruct patient to recog Patient Health Questionnaire Initial Assessment 1. Little interest or pleasure in doing things: Not at all 2. Feeling down, depressed, or hopeless: Not at all 3. Trouble falling or staying asleep, or sleeping too much: More than half the days 4. Feeling tired or having little energy: Several days 5. Poor appetite or overeating: Several days 6. Feeling bad about yourself -- or that you are a failure or have let yourself or your family down: Not at all 7. Trouble concentrating on things, such as reading the newspaper or watching television: Not at all 8. Moving or speaking so slowly that other people could have noticed. Or the opposite - being so fidgety or restless that you have been moving around a lot more than usual: Not at all 9. Thoughts that you would be better off , or of hurting yourself in some way: Not at all How difficult have these problems made it for you to do your work, take care of things at home, or get along with other people?: Not difficult at all Total Score: 4 KEVON-Q SV Test - Statements CAD is a disease of the arteries in the heart: False Examples of risk factors for heart disease: True Angina is chest pain or discomfort: True The benefits of resistance training include: True Eating more meat and dairy products: False Anti-platelet medications such as aspirin are important: True The only effective way to manage stress: False An exercise warm-up slowly increases heart rate: False Prepared, processed foods usually have high sodium: True Depression is common after a heart attack: True The statin medications lower cholesterol: True To control blood pressure, lower the amount of sodium: True If someone gets chest discomfort during walking: False Transfats are partially hydrogenated vegetable oils: True Sleep apnea that is not treated increases the risk: True To control cholesterol, one should become a vegetarian: False Someone knows if he/she is exercising at the right level: True Diabetes cannot be prevented with exercise & health eating: False Stress is a large risk for heart attack: True A diet that can help lower blood pressure is rich in: True - Total Score Total Correct Responses: 18 Self-Efficacy Initial Assessment We would like to know how confident you are in doing certain activities. Please select your confidence level for:: Select your confidence level for the following using the scale 1-10 where 1 is not at all confident and 10 is totally confident. Your score is the average of all 6 responses. Fatigue: How confident are you that you can keep the fatigue caused by your disease from interfering with the things you want to do? Select Number: 9 Physical Discomfort or Pain: How confident are you that you can keep the physical discomfort or pain of your disease from interfering with the things you want to do? Select Number: 9 Emotional Distress: How confident are you that you can keep the emotional distress caused by your disease from interfering with the things you want to do? Select Number: 9 Other Symptoms or Health Problems: How confident are you that you can keep other symptoms or health problems from interfering with the things you want to do? Select Number: 9 Different Tasks and Activities: How confident are you that you can do the different tasks and activities needed to manage your health condition so as to reduce your need to see a doctor? Select Number: 9 Medication: How confident are you that you can do things other than just taking medication to reduce how much your illness affects your everyday life? Select Number: 10 Total Score:: 9 Nutrition Survey - Nutrition Survey Instructions Scoring Instructions: Scoring is as follows: Yes = 1 points. No = 0 point. Patient score that is >/=12 is considered to be at potential nutritional risk and could benefit from a referral to a registered dietitian. - Nutrition Survey Initial Have you lost >10 lbs over the past 2 months without trying?: No Are you following a special diet at home for diabetes, low fat, or low salt?: No Are you interested in meeting with a dietitian for help understanding your diet?: Yes Do you eat less than 3 meals a day?: No Do you eat fatty meats (argueta, sausage, ribs, etc), fried foods, desserts, large amounts of salad dressings, margarine, butter, or cheese most days?: Yes Do you have food allergies? [Enter types in comment field]: No Do you eat in restaurants more than 3 times a week?: No Do you season food with salt, seasoning salt, or garlic salt?: No Do you used canned, boxed, frozen meals, or soups, seasoning packets?: No Total Score:: 2
--- NOTE | 2019-12-19 07:59 | PCM.CR.HP2 ---
CR - History & Physical - General Arrival date:: 12/19/19 Arrival time:: 08:00 Date of Referral:: 12/06/19 Date of CR Evaluation:: 12/19/19 Referring Physician: DR. LUKE LERNER Primary Diagnosis: S/P PCI INTERVENTION W/CORONARY STENTING - History of Present Cardiac Event Onset Date: Enter Onset Date of cardiac illnesses in Comment field below PTCA or coronary stenting:: Yes - 12/06/2019 Type of Symptoms:: SHORTNESS OF BREATH, DR. LERNER RECOMMENDED CHECKING IT OUT, SCHEDULED ECHO-STRESS TEST TO BE DONE IN SEPTEMBER 2019, ABNORMAL STRESS TEST. Interventions with present event:: STRESS TEST, HEART CATH Were there any complications?: NO - Medications Home Medications: Ambulatory Orders Medication Instructions Recorded atorvastatin 10 mg tablet 10 mg PO QHS 08/23/18 calcium carb 300 mg-D3 800 1 tab PO DAILY 08/23/18 unit-mag ox 25 mg-advertising copywriter 0.5 mg-yesenia-Zn tablet cholecalciferol (vitamin D3) 25 1,000 unit PO DAILY 08/23/18 mcg (1,000 unit) capsule flqzugyt-qjj-bhwja acid 0.4 1 tab PO DAILY 08/23/18 mg-lycopene 300 mcg-lutein 250 mcg tablet propranolol 20 mg tablet 10 mg PO BID #90 tab 04/13/19 aspirin 81 mg tablet,delayed 81 mg PO DAILY #90 tab 08/14/19 release losartan 25 mg tablet 25 mg PO DAILY #90 tab 08/14/19 clopidogrel 75 mg tablet 75 mg PO QDAY #90 tab 12/07/19 - Allergies Allergies/Adverse Reactions: Allergies adhesive tape Adverse Reaction (Intermediate, Verified 04/13/19 15:35) Rash - Sleep Disorder Evaluation Hx of Sleep Apnea: No Do you snore loudly (louder than talking or can be heard through closed doors)?: No Do you often feel tired/ fatigued/ sleepy during daytime?: No Has anyone observed you stop breathing during sleep?: No History of Hypertension (for STOP score): Yes STOP Results: Negative Advanced Directives - Advanced Directives Power of Ramp Service Agent: No Living Will: No Advance Directives Information Provided: Yes Advance Directives on File: No DNR Order?:: No - MOLST See MOLST form: No Past Medical History - Past Medical Illness Medical History: Past Medical History (Last Updated 12/06/19 @ 17:12 by Lara Walter) Atherosclerosis of coronary artery without angina pectoris (Chronic) I25.10 Palpitations (Chronic) R00.2 Hypertension (Chronic) I10 Hyperlipidemia (Chronic) E78.5 H/O Jessica thyroiditis Onset Date: 04/04/15 Z86.39 Multiple thyroid nodules E04.2 Uterovaginal prolapse N81.4 Abnormal stress test R94.39 - Past Surgical History Surgical History: Past Surgical History (Last Updated 12/06/19 @ 17:12 by Lara Walter) History of coronary artery stent placement (Chronic) Onset Date: 12/06/19 Z95.5 PCI-JEANNE-Mid LAD 2.25 x 16 Promus Synergy stent 12/06/2019 Normal FFR, but abn stress 11/29/2019 History of benign breast biopsy Z98.890 History of colonoscopy Z98.890 History of left heart catheterization Onset Date: 09/14/18 Z98.890 Non obstructive coronary arteries(false positive stress); Segmented LV systolic dysfunction- Mild LVEF: by LV gram 55 %; Normal Left Ventricular End Diastolic Pressure per LHC done @ [facility] by LORRI 09/14/2018 History of patellar fracture Z87.81 Repaired with screws March 2010 History of tubal ligation Z98.51 Hx of malignant melanoma Z85.820 left lower leg: excised 01/27/2006 Status post biopsy of skin Z98.890 12/2005, 01/2006 - Family History Summary Family History: Family History (Last Reviewed 11/09/19 @ 09:09 by Lyndsey Salas) Mother Breast cancer, Onset Age: 85 Father Hypertension Skin cancer Social History - Smoking History Smoking Status: Never smoker Hx Tobacco Use: No Hx Smoking Exposure: No - Alcohol Use Alcohol Usage: No - Substance Abuse Hx Substance Use: No - Occupation Occupation (List type of work in comments):: Employed Hours worked per day:: 6 - [employer] - Hobbies, Recreation, Social Activities Hobbies: Hiking - TRAIL HIKING, , Walking, Exercise, Other - YARD WORK, GARDENING Recreational Activities: I am able to engage in all my recreational activities Social Environment - Status Marital Status: - Current Living Arrangements Living Environment:: Spouse - Children How many children do you have?: 3 Do any of your children live nearby?: No - Safety Do you feel safe in your surroundings?: Yes - Assistance Do you need any assistance at home?: NO Review of Systems - Review of Systems Hints: Right click = Denies (Slash). Left click = Reports ([place]) Review of Present Symptoms: Reports: Appetite - Normal - ABOVE NORMAL, Sleep - Normal - DIFFICULTY FALLING ASLEEP OR STAYING ASLEEP AT NIGHT.. Denies: Shortness of Breath at Rest, Shortness of Breath with Exertion, Angina, Dizziness/Lightheadedness, Fatigue, Appetite - Special Diet - Pain Is Patient Pain Free?: Yes Pain Location: none Pain Level: 0/10 Risk Factor Assessment - Chief Complaint Chief Complaint: PATIENT IS A 63/F OF DR LERNER WHO PRESENTS TO CARDIAC REHAB TODAY FOLLOWING RECENT ABNORMAL STRESS TEST WHICH LEAD TO HEART CATH AND SUBSEQUENT PCI INTERVENTION/CORONARY STENTING ON 12/06/2019. - Vital Signs Temperature: 97.7 F Respiratory Rate: 16 Pulse Ox: 96 - ROOM AIR Blood Pressure: 122/68 - Pulse Pulse Rate: 66 Pulse Rhythm: Regular - Hypertension Blood Pressure Sitting - Left Arm: 122/68 - Blood Cholesterol/Lipids Total Cholesterol (mg/dL) Goal = less than 200 mg/dL: 143 - 11/06/2019 HDL Cholesterol (mg/dL) Goal = less than 40 mg/dL: 58 LDL Cholesterol (mg/dL) Goal = less than 70 mg/dL: 26 Triglycerides (mg/dL) Goal = less than 150 mg/dL: 130 - Diabetes Nutrition Referral for Diabetes: No - Obesity Height: 5 ft 7 in Weight:: 169 lb Weight in Pounds: 169.0 lbs Weight Source: Standing Scale Body Mass Index (BMI): 26.4 Nutritional Referral for Obesity: No - Risk Stratification Risk Guidelines: Lowest Risk: Risk Factor for Dyslipidemia - STATIN MANAGED, Risk Factor for Obesity, Risk Factor for Hypertension - CONTROLLED, Risk Factor for Sedentary Lifestyle, Risk Factor for Depression - For Smoking Smoking Risk Guidelines: Smoking Low Risk: None or quit greater than 6 months ago. Smoking Moderate Risk: Smoker or quit 6 months or less ago. Smoking High Risk: Smoker - For Dyslipidemia Dyslipidemia Risk Guidelines: Low Risk: Moderate Risk: High Risk: 15-25% fat 25.1-29% fat >/= 30% fat. <7% sat fat 7-9% sat fat >9% sat fat. <150 mg chol 150-299 mg chol >/= 300 mg chol. LDL <100 LDL 100-129 LDL >/= 130. Chol/HDL ratio <5.0 Chol/HDL ratio 5.0-6.0 Chol/HDL ratio >6.0. Triglycerides <100 Triglycerides 100-149 Triglycerides >/= 150 - For Diabetes Mellitus Diabetes Risk Guidelines: Diabetes Low Risk: HgA1c <6.5% and/or FBG <120. Diabetes Moderate Risk: HgA1c 6.6-7.9% and/or FBG 120-180. Diabetes High Risk: HgA1c >/= 8% and/or FBG >180 - For Obesity/Overweight Obesity/Overweight Risk Guidelines: Obesity Low Risk: BMI <25.0. Obesity Moderate Risk: BMI 25-29.9. Obesity High Risk: BMI >/= 30.0 - For Hypertension Hypertension Risk Guidelines: Hypertension Low Risk: Systolic <120 and Diastolic <80. Hypertension Moderate Risk: Systolic 120-139 and Diastolic 80-89. Hypertension High Risk: Systolic >/= 140 and Diastolic >/= 90 - For Sedentary Lifestyle Sedentary Lifestyle Risk Guidelines: Sedentary Lifestyle Low Risk: >/= 1,500 kcal/week. Sedentary Lifestyle Moderate Risk: 700-1,499 kcal/week. Sedentary Lifestyle High Risk: < 700 kcal/week - For Depression Depression Risk Guidelines: Depression Low Risk: Not clinically depressed. Depression Moderate Risk: Mildly depressed. Depression High Risk: Clinically depressed - Family History Family History: Family History (Last Reviewed 11/09/19 @ 09:09 by Lyndsey Salas) Mother Breast cancer, Onset Age: 85 Father Hypertension Skin cancer Motivation - Motivation to Participate On a scale of 1 to 10, how prepared are you to commit to attending program?: 9 What do you see as barriers to successfully being able to complete the program?: NO (RIGHT KNEE SURGERY REPAIR 10 YRS AGO) What do you see as the benefits of succesfully completing the program? In other words, what do you hope to get out of participating in the program?: BE ABLE TO APPLY TO HOME EXERCISE-LIFESTYLE Are there issues you are dealing with that will interfere with completing the program?: NONE Do you have a spouse or signficant other, family or friends who will help support you to complete the program?: YES
[2019-12-19 08:26] VITALS: BP 122/68; PULSE 66; RESP 16; TEMP 36.5; O2SAT 96; BMI 26.4
[2019-12-19 09:26] VITALS: BP 110/72; BP 142/82; BP 182/74; BMI 25.9
== END | disposition home or self-care (01) ==
LOC: CR 07:56
PROVIDERS: PCP Internal Medicine; Referring Provider Internal Medicine Cardiovascular Disease; Visit Provider Internal Medicine Cardiovascular Disease
DX: Z95.5 Presence of coronary angioplasty implant and graft (principal)

== ENCOUNTER 2019-12-29 11:30 | Outpatient (RCR) | payer OTHER, SELFPAY ==
[2019-12-19 08:26] VITALS: BMI 26.4
[2019-12-19 09:26] VITALS: BMI 25.9
== END 2019-12-29 23:59 ==
LOC: CR 11:30
PROVIDERS: PCP Internal Medicine; Referring Provider Internal Medicine Cardiovascular Disease; Visit Provider Internal Medicine Cardiovascular Disease
DX: I25.10 Atherosclerotic heart disease of native coronary artery without angina pectoris (principal); I10 Essential (primary) hypertension; E78.5 Hyperlipidemia, unspecified; R00.2 Palpitations; Z95.5 Presence of coronary angioplasty implant and graft
CPT/HCPCS: 93798

== ENCOUNTER 2020-01-22 15:49 | Outpatient (RCR) | payer SELFPAY ==
[2019-12-19 08:26] VITALS: BMI 26.4
[2019-12-19 09:26] VITALS: BMI 25.9
[2020-01-03 10:43] VITALS: BMI 27.1
[2020-01-22 10:30] VITALS: BMI 28.3
== END 2020-01-29 23:59 ==
LOC: NS 15:49
PROVIDERS: PCP Internal Medicine; Visit Provider Internal Medicine Cardiovascular Disease
DX: Z71.3 Dietary counseling and surveillance (principal); I25.10 Atherosclerotic heart disease of native coronary artery without angina pectoris; I10 Essential (primary) hypertension; E78.5 Hyperlipidemia, unspecified; Z68.28 Body mass index [BMI] 28.0-28.9, adult
CPT/HCPCS: 97802

== ENCOUNTER 2020-01-29 15:15 | Outpatient (RCR) | payer OTHER, SELFPAY ==
[2019-12-19 08:26] VITALS: BMI 26.4
[2019-12-19 09:26] VITALS: BMI 25.9
--- NOTE | 2020-01-22 10:20 | CR.ITP_ITS ---
Exercise - 30-day Assessment - Visit Date of Eval: 01/22/20 Session #:: 12 - Physician Prescribed Exercise Modalities: Treadmill, Airdyne, NuStep Frequency: 3x/week for 12 weeks [36 sessions] Intensity: 60-80% of age predicted maximum heart rate reserve Current METSs:: 5.0 increased from 3.7 Target Heart Rate:: 100-131 Current RPE:: 13-14 Maximum Excercise HR:: 122 Resting Blood Pressure: 102/54 Maximum Exercise Blood Pressure: 156/70 EKG Type: NSR to sinus tach w/freq. PVCs, vent quadrimeny, rare PAC, vent ectopy - Outcomes & Goals Goals:: Verbalizes understanding of THR, RPE & goal METS by session 6, Documents in home exercise log/reports 30 min aerobic 5 day/wk by DC, Demonstrates accurate pulse taking by DC - Intervention & Plan Exercise Program Goals: Instruct on personal THR & RPE, Instruct on MET level & personal MET goal, Show patient to take own pulse /validate performance until accurate, Instruct on home exercise - 30-day Reassessments 30 day Reassessments:: Progressing - Physical Activity Home Exercise Physical Activity - Home Exercise: Safe Exercise, Warm-up, Self-monitoring, Cool-Down, Home Exercise > 30 min Daily, Sitting Time <3 hours/daily - Outcomes & Goals Outcomes/Goals: Demonstrates correct Warm-up/exercise Cool-Down (S3) if = 2.5 METs, Verbalizes symptoms of exercise intolerance by Session 3 (S3), Demonstrate safe equipment use (S3) & follows exercise prescrition (6) - Intervention & Plan Plan/Intervention: Instruct warm-up & cool-down if exercising at > 2 METs, Instruct on symptoms of exercise intolerance & actions to take, Instruct & monitor on saf, Assess intial functional capacity & safety risk - 30-day Reassessments 30 day Reassessments:: Progressing Nutrition - 30-Day Assessment - Program Goals Nutrition Program Goals: LDL <100 optimal. 100 - 129 Near optimal. 130 - 159 Borderline High. 160 - 189 High. Total Cholesterol <200 desirable. 200 - 239 Borderline High. >/= 240 High. HDL < 40 Low >/=60 High. Triglycerides <150 desirable. <199 optimal. VlDL 5 - 40. HgbA1C <7%. BMI <25 Patient has diagnosis of Hyperlipidemia (ICD E78)?: Yes - Visit Date of Assessment:: 01/22/20 Session #:: 12 - no recent labs - Cholesterol/Lipids Determine presence & major risk factors that modify LDL goal: Hypertension or hypertensive medication, Family history of premature CHD in Male < 55 years: female <65 yearsFa, Age men > 45 years; women >/= 55 years Outcomes/Goals: Pt IDs own risk factors & lifestyle modifications by Session 10, Verbalizes symptoms of angina & response by session 3., Pt independently manages Intervention/Plan: Instruct on personal lipid levels & lipid goals/NCEP guidelines, Instruct on cholesterol Referral to dietitian:: Yes 30-day Reassessments:: Progressing - Diabetes (Other Core Measures) Diabetes Type: Not Applicable - Weight Mgt (Other Care) Not Applicable: Yes Height: 5 ft 6 in Weight:: 175 lb 8 oz BMI: 28.3 Diagnosis Overweight/Obesity BMI> 30% ICD-10 E66: No Diagnosis High BMI/Morbid Obesity BMI> 35% ICD-10 Z68: No Outcomes/Goals: Pt sets, maintains & shows weight loss goal & trend during rehab Intervention/Plan: Instruct on ideal BMI & set weight loss goal w/patient 30 day Reassessments:: Progressing - Healthy Eating Habits Will attend diet classes:: Yes Outcomes/Goals:: Consume diet rich in vegs,fruits,whole grain/high fiber,fish,lean meat, Limit sat/trans fats,cholesterol & added salts & sugars Intervention/Plan:: Assess current eating habits 30-day Reassessments:: Progressing - Education Gave educational materials for:: Healthy eating Medical- 30-Day Assessment - Visit Date of Eval: 01/22/20 Session #:: 12 - Medication Compliance Preventative Medication(s):: Aspirin, Clopidogrel/P2Y12 inhibit, Statin/lipid, Beta pualine H/O mental health issues: depression, anxiety, or addiction?: No Doesn?t believe in the benefits of treatment?: No Believes medications are unnecessary or harmful?: No Has a concern about medication side effects?: No Expresses concern over the cost of medications?: No Outcomes/Goals: Verbalizes medications,desired effect & common side effects @ DC, Pt self-reports following medication regimen, Keeps card in wallet w/medications listed by DC Interventions/plans: Instruct on medication effects & side effects, Review medication list w/patient every two weeks, Instruct importance of taking meds as ordered & assist problem solving 30-day Reassessments:: Progressing - Tobacco Use Tobacco Use: Non-smoker - Hypertension Hypertension Diagnosis:: Hypertension ICD-10 I10 Resting Blood Pressure:: 102/54 [place] [employer] Hypertension Guidelines: [place] [employer] Hypertension Guidelines. Normal BP Less than 120/80. Elevated BP 120/80. Hypertension Stage 1: BP 130-139/80-89. Hypertesnion Stage 2: BP 140 or higher /90 or higher. Hypertension Crisis: BP higher than 180/120 Peak Exercise Blood Pressure:: 156/70 Outcomes/Goals: Able to verbalize/achieve optimal blood pressure <130/80, Incorporates diet changes & exercise for blood pressure control by DC Interventions/plan: Instruct on optimal blood pressure, hypertension & medications, Instruct on effects of sodium, alcohol, stress, exercise &hypertension 30 day Reassessments:: Progressing - Tobacco Cessation Referral Smoking Cessation Referral:: No Individual Education/Counseling:: No Education Schedule Given:: Yes Psychosocial - 30-Day Assess - VIsit Date of Eval: 01/22/20 Session #:: 12 Not Applicable: Yes History of previous Mental disease:: No - Target Goals Target Goals: Assess presence or absence of depression. Using a valid screening tool, maximizes coping skills. Positive support system - Psychosocial Test Tool Used:: Campanja QOL Cardiac, PHQ-9 Questionnaire phq-9 Severity: Severity. 1-4 Minimal Depression. 5-9 Mild Depression. 10-14 Moderate Depression. 15-19 Moderately Sever Depression. 20-27 Severe Depression. Rule: - Referral to Behavioral Health PS - Interventions: Yes Attend Stress Management Classes, No Referral to Behavioral Health if PHQ-9 score >9:, No Referral to [facility], No Referral to Physician if PHQ-9 if score is 5-9: - Outcomes/Goals: See list Psychosocial Outcomes/Goals:: ID's personal stressors & 2 strategies to manage stress by discharge - Intervention/Plan: See List Interventions/Plan:: Assess stressors,coping strategies & signs of derpression on admission, Instruct/assist pt to develop coping & personal stress Mgt strategies, Instruct patient to recognize signs & symptoms of depression, Instruct patient to recog - 30-day Reassessments: 30 day Reassessments:: Progressing Patient Health Questionnaire 30-Day Re-eval Assessment 1. Little interest or pleasure in doing things: Not at all 2. Feeling down, depressed, or hopeless: Not at all 3. Trouble falling or staying asleep, or sleeping too much: Several days 4. Feeling tired or having little energy: Not at all 5. Poor appetite or overeating: Several days 6. Feeling bad about yourself -- or that you are a failure or have let yourself or your family down: Not at all 7. Trouble concentrating on things, such as reading the newspaper or watching television: Not at all 8. Moving or speaking so slowly that other people could have noticed. Or the opposite - being so fidgety or restless that you have been moving around a lot more than usual: Not at all 9. Thoughts that you would be better off , or of hurting yourself in some way: Not at all How difficult have these problems made it for you to do your work, take care of things at home, or get along with other people?: Not difficult at all Total Score: 2 Self-Efficacy 30-Day Re-eval Assessment We would like to know how confident you are in doing certain activities. Please select your confidence level for:: Select your confidence level for the following using the scale 1-10 where 1 is not at all confident and 10 is totally confident. Your score is the average of all 6 responses. Fatigue: How confident are you that you can keep the fatigue caused by your disease from interfering with the things you want to do? Select Number: 9 Physical Discomfort or Pain: How confident are you that you can keep the physical discomfort or pain of your disease from interfering with the things you want to do? Select Number: 9 Emotional Distress: How confident are you that you can keep the emotional distress caused by your disease from interfering with the things you want to do? Select Number: 10 Other Symptoms or Health Problems: How confident are you that you can keep other symptoms or health problems from interfering with the things you want to do? Select Number: 10 Different Tasks and Activities: How confident are you that you can do the different tasks and activities needed to manage your health condition so as to reduce your need to see a doctor? Select Number: 9 Medication: How confident are you that you can do things other than just taking medication to reduce how much your illness affects your everyday life? Select Number: 10 Total Score:: 9
[2020-01-22 10:30] VITALS: BP 102/54; BP 156/70
== END 2020-01-29 23:59 ==
LOC: CR 15:15
PROVIDERS: PCP Internal Medicine; Referring Provider Internal Medicine Cardiovascular Disease; Visit Provider Internal Medicine Cardiovascular Disease
DX: I25.10 Atherosclerotic heart disease of native coronary artery without angina pectoris (principal); I10 Essential (primary) hypertension; E78.5 Hyperlipidemia, unspecified; R00.2 Palpitations; Z95.5 Presence of coronary angioplasty implant and graft
CPT/HCPCS: 93798

== ENCOUNTER 2020-02-26 15:15 | Outpatient (RCR) | payer OTHER, SELFPAY ==
[2020-01-03 10:43] VITALS: BMI 27.1
[2020-01-30 00:42] VITALS: BP 102/54; BP 156/70
--- NOTE | 2020-02-16 07:10 | PCM.CR.ITP ---
Diagnosis - Education/Goals Cardiac Rehabilitation Goals: 1. Maintain the individual as the primary focus of care. 2. To improve the patient's quality of life. 3. Identification of cardiac risk factors and provide cardiac risk factor management. 4. Enhance the psychosocial status of the patient. 5. Reconditioning enough to allow the patient to resume customary activities. 6. Control symptoms of cardiac disease Personal Goals: 60-day Re-assessment: Improve energy level - 4, Improve knowledge of cardiac disease - 4, Improve muscle strength and endurance - 4, Improve diet and eating habits (eat healthier) - 4, Control risk factors (learn risk factor modification) - 4 Scale for measuring improvement of personal goals: Enter appropriate number in Comments. 2 = Unchanged. 3 = Slightly Better. 4 = Moderate Improvement. 5 = Met my Goal - Diagnosis & Disease Process Outcomes/Goals: Pt IDs own risk factors & lifestyle modifications by Session 10, Verbalizes symptoms of angina & response by session 3., Pt independently manages Plan/Interventions: Assist Pt to ID & engage in lifestyle modification to reduce CVD risk, Instruct on individual risk factors, Review symptoms of angina & emergency actions, Review secondary diagnosis & identify educational needs. 30 day Reassessments:: Progressing 30 day Reassessments:: Progressing - Safety Referral to Physical Therapy: No Referral to [facility] Case Management: No Fall Risk Assessed:: Yes Assistive Devices:: None Exercise - 60-day Assessment - Visit Date of Eval: 02/16/20 Session #:: 22 - Physician Prescribed Exercise Modalities: Treadmill, Rower, Airdyne, NuStep Frequency: 3x/week for 12 weeks [36 sessions] Intensity: 60-80% of age predicted maximum heart rate reserve Current METSs:: 6.0 increase from 4.5 Target Heart Rate:: 100-131 Current RPE:: 13-14 Maximum Excercise HR:: 116 Resting Blood Pressure: 112/58 Maximum Exercise Blood Pressure: 128/78 EKG Type: NSRto sinus tachycardia with occas. PVC - Outcomes & Goals Goals:: Verbalizes understanding of THR, RPE & goal METS by session 6, Documents in home exercise log/reports 30 min aerobic 5 day/wk by DC, Demonstrates accurate pulse taking by DC - Intervention & Plan Exercise Program Goals: Instruct on personal THR & RPE, Instruct on MET level & personal MET goal, Show patient to take own pulse /validate performance until accurate, Instruct on home exercise - 30-day Reassessments 30 day Reassessments:: Progressing - Physical Activity Home Exercise Physical Activity - Home Exercise: Safe Exercise, Warm-up, Self-monitoring, Cool-Down, Home Exercise > 30 min Daily, Sitting Time <3 hours/daily - Outcomes & Goals Outcomes/Goals: Demonstrates correct Warm-up/exercise Cool-Down (S3) if = 2.5 METs, Verbalizes symptoms of exercise intolerance by Session 3 (S3), Demonstrate safe equipment use (S3) & follows exercise prescrition (6) - Intervention & Plan Plan/Intervention: Instruct warm-up & cool-down if exercising at > 2 METs, Instruct on symptoms of exercise intolerance & actions to take, Instruct & monitor on saf, Assess intial functional capacity & safety risk - 30-day Reassessments 30 day Reassessments:: Progressing Nutrition - 60-Day Assessment - Program Goals Nutrition Program Goals: LDL <100 optimal. 100 - 129 Near optimal. 130 - 159 Borderline High. 160 - 189 High. Total Cholesterol <200 desirable. 200 - 239 Borderline High. >/= 240 High. HDL < 40 Low >/=60 High. Triglycerides <150 desirable. <199 optimal. VlDL 5 - 40. HgbA1C <7%. BMI <25 - Visit Date of Assessment:: 02/16/20 Session #:: 21 - no updated labs - Cholesterol/Lipids Outcomes/Goals: Pt IDs own risk factors & lifestyle modifications by Session 10, Verbalizes symptoms of angina & response by session 3., Pt independently manages Intervention/Plan: Instruct on personal lipid levels & lipid goals/NCEP guidelines, Instruct on cholesterol - Diabetes (Other Core Measures) Diabetes Type: Not Applicable - Weight Mgt (Other Care) Not Applicable: Yes Height: 5 ft 6 in Weight:: 173 lb 8 oz BMI: 28.0 Diagnosis Overweight/Obesity BMI> 30% ICD-10 E66: No Diagnosis High BMI/Morbid Obesity BMI> 35% ICD-10 Z68: No Outcomes/Goals: Pt sets, maintains & shows weight loss goal & trend during rehab Intervention/Plan: Instruct on ideal BMI & set weight loss goal w/patient, Encourage goal of using 250-300dcal per session for weight loss 30 day Reassessments:: Progressing - Healthy Eating Habits Will attend diet classes:: Yes Outcomes/Goals:: Consume diet rich in vegs,fruits,whole grain/high fiber,fish,lean meat, Limit sat/trans fats,cholesterol & added salts & sugars Intervention/Plan:: Assess current eating habits 30-day Reassessments:: Progressing - Education Gave educational materials for:: Healthy eating Medical- 60-Day Assessment - Visit Date of Eval: 02/16/20 Session #:: 21 - Medication Compliance Preventative Medication(s):: Aspirin, Clopidogrel/P2Y12 inhibit, Statin/lipid, Beta pauline H/O mental health issues: depression, anxiety, or addiction?: No Doesn?t believe in the benefits of treatment?: No Believes medications are unnecessary or harmful?: No Has a concern about medication side effects?: No Expresses concern over the cost of medications?: No Outcomes/Goals: Verbalizes medications,desired effect & common side effects @ DC, Pt self-reports following medication regimen, Keeps card in wallet w/medications listed by DC Interventions/plans: Instruct on medication effects & side effects, Review medication list w/patient every two weeks, Instruct importance of taking meds as ordered & assist problem solving 30-day Reassessments:: Progressing - Tobacco Use Tobacco Use: Non-smoker - Hypertension Hypertension Diagnosis:: Hypertension ICD-10 I10 Resting Blood Pressure:: 112/58 - controlled on medication [place] [employer] Hypertension Guidelines: [place] [employer] Hypertension Guidelines. Normal BP Less than 120/80. Elevated BP 120/80. Hypertension Stage 1: BP 130-139/80-89. Hypertesnion Stage 2: BP 140 or higher/90 or higher. Hypertension Crisis: BP higher than 180/120 Peak Exercise Blood Pressure:: 128/78 Outcomes/Goals: Able to verbalize/achieve optimal blood pressure <130/80, Incorporates diet changes & exercise for blood pressure control by DC Interventions/plan: Instruct on optimal blood pressure, hypertension & medications, Instruct on effects of sodium, alcohol, stress, exercise &hypertension 30 day Reassessments:: Progressing - Tobacco Cessation Referral Smoking Cessation Referral:: No Individual Education/Counseling:: No Education Schedule Given:: Yes Psychosocial - 60-Day Assess - VIsit Date of Eval: 02/16/20 Session #:: 21 Not Applicable: Yes - Target Goals Target Goals: Assess presence or absence of depression. Using a valid screening tool, maximizes coping skills. Positive support system - Psychosocial Test Tool Used:: PHQ-9 Questionnaire phq-9 Severity: Severity. 1-4 Minimal Depression. 5-9 Mild Depression. 10-14 Moderate Depression. 15-19 Moderately Sever Depression. 20-27 Severe Depression. Rule: - Referral to Behavioral Health PS - Interventions: Yes Attend Stress Management Classes, No Referral to Behavioral Health if PHQ-9 score >9:, No Referral to [facility], No Referral to Physician if PHQ-9 if score is 5-9: - Outcomes/Goals: See list Psychosocial Outcomes/Goals:: ID's personal stressors & 2 strategies to manage stress by discharge - Intervention/Plan: See List Interventions/Plan:: Assess stressors,coping strategies & signs of derpression on admission, Instruct/assist pt to develop coping & personal stress Mgt strategies, Instruct patient to recognize signs & symptoms of depression, Instruct patient to recog - 30-day Reassessments: 30 day Reassessments:: Progressing Patient Health Questionnaire 60-Day Re-eval Assessment 1. Little interest or pleasure in doing things: Not at all 2. Feeling down, depressed, or hopeless: Not at all 3. Trouble falling or staying asleep, or sleeping too much: Not at all 4. Feeling tired or having little energy: Not at all 5. Poor appetite or overeating: Not at all 6. Feeling bad about yourself -- or that you are a failure or have let yourself or your family down: Not at all 7. Trouble concentrating on things, such as reading the newspaper or watching television: Not at all 8. Moving or speaking so slowly that other people could have noticed. Or the opposite - being so fidgety or restless that you have been moving around a lot more than usual: Not at all 9. Thoughts that you would be better off , or of hurting yourself in some way: Not at all Total Score: 0 Self-Efficacy 60-Day Re-eval Assessment We would like to know how confident you are in doing certain activities. Please select your confidence level for:: Select your confidence level for the following using the scale 1-10 where 1 is not at all confident and 10 is totally confident. Your score is the average of all 6 responses. Fatigue: How confident are you that you can keep the fatigue caused by your disease from interfering with the things you want to do? Select Number: 10 Physical Discomfort or Pain: How confident are you that you can keep the physical discomfort or pain of your disease from interfering with the things you want to do? Select Number: 10 Emotional Distress: How confident are you that you can keep the emotional distress caused by your disease from interfering with the things you want to do? Select Number: 10 Other Symptoms or Health Problems: How confident are you that you can keep other symptoms or health problems from interfering with the things you want to do? Select Number: 10 Different Tasks and Activities: How confident are you that you can do the different tasks and activities needed to manage your health condition so as to reduce your need to see a doctor? Select Number: 10 Medication: How confident are you that you can do things other than just taking medication to reduce how much your illness affects your everyday life? Select Number: 10 Total Score:: 10
[2020-02-16 07:16] VITALS: BP 112/58; BP 128/78; BMI 28.0
== END 2020-02-28 23:59 ==
LOC: CR 15:15
PROVIDERS: PCP Internal Medicine; Referring Provider Internal Medicine Cardiovascular Disease; Visit Provider Internal Medicine Cardiovascular Disease
DX: I25.10 Atherosclerotic heart disease of native coronary artery without angina pectoris (principal); I10 Essential (primary) hypertension; E78.5 Hyperlipidemia, unspecified; R00.2 Palpitations; Z95.5 Presence of coronary angioplasty implant and graft
CPT/HCPCS: 93798

== ENCOUNTER 2020-02-26 16:00 | Outpatient (RCR) | payer OTHER, SELFPAY ==
[2020-01-03 10:43] VITALS: BMI 27.1
== END 2020-02-28 23:59 ==
LOC: NS 16:00
PROVIDERS: PCP Internal Medicine; Visit Provider Internal Medicine Cardiovascular Disease
DX: Z71.3 Dietary counseling and surveillance (principal); I25.10 Atherosclerotic heart disease of native coronary artery without angina pectoris; I10 Essential (primary) hypertension; E66.3 Overweight; Z68.28 Body mass index [BMI] 28.0-28.9, adult
CPT/HCPCS: 97803

== ENCOUNTER 2020-03-18 15:15 | Outpatient (RCR) | payer OTHER, SELFPAY ==
[2020-01-03 10:43] VITALS: BMI 27.1
[2020-02-16 07:16] VITALS: BMI 28.0
[2020-02-29 00:35] VITALS: BP 112/58; BP 128/78
--- NOTE | 2020-03-15 07:16 | PCM.CR.ITP ---
Diagnosis - Education/Goals Cardiac Rehabilitation Goals: 1. Maintain the individual as the primary focus of care. 2. To improve the patient's quality of life. 3. Identification of cardiac risk factors and provide cardiac risk factor management. 4. Enhance the psychosocial status of the patient. 5. Reconditioning enough to allow the patient to resume customary activities. 6. Control symptoms of cardiac disease Personal Goals: Initial Assessment: Improve energy level - 4, Participate in home exercise program - 4, Improve knowledge of cardiac disease - 4, Improve muscle strength and endurance - 4, Improve diet and eating habits (eat healthier) - 4, Control risk factors (learn risk factor modification) - 4 Scale for measuring improvement of personal goals: Enter appropriate number in Comments. 2 = Unchanged. 3 = Slightly Better. 4 = Moderate Improvement. 5 = Met my Goal - Diagnosis & Disease Process Outcomes/Goals: Pt IDs own risk factors & lifestyle modifications by Session 10, Verbalizes symptoms of angina & response by session 3., Pt independently manages Plan/Interventions: Assist Pt to ID & engage in lifestyle modification to reduce CVD risk, Instruct on individual risk factors, Review symptoms of angina & emergency actions, Review secondary diagnosis & identify educational needs. 30 day Reassessments:: Met 30 day Reassessments:: Met 30 day Reassessments:: Met 30 day Reassessments:: Met Final Reassessments:: Met - Safety Referral to Physical Therapy: No Referral to [facility] Case Management: No Fall Risk Assessed:: Yes Assistive Devices:: None Exercise - Final/Discharge - Visit Date of Eval: 03/15/20 Session #:: 35 - Physician Prescribed Exercise Modalities: Treadmill, Rower, Airdyne, NuStep Frequency: 3x/week for 12 weeks [36 sessions] Intensity: 60-80% of age predicted maximum heart rate reserve Current METSs:: 5.9 patient at maximal level of intensity. Target Heart Rate:: 100-131 Current RPE:: 13 Maximum Excercise HR:: 116 Resting Blood Pressure: 112/60 Maximum Exercise Blood Pressure: 124/68 EKG Type: NSR to sinus tachycardia withT wave inversion, occasional PVCs. - Outcomes & Goals Goals:: Verbalizes understanding of THR, RPE & goal METS by session 6, Documents in home exercise log/reports 30 min aerobic 5 day/wk by DC, Demonstrates accurate pulse taking by DC - Intervention & Plan Exercise Program Goals: Instruct on personal THR & RPE, Instruct on MET level & personal MET goal, Show patient to take own pulse /validate performance until accurate, Instruct on home exercise - 30-day Reassessments 30 day Reassessments:: Met - Physical Activity Home Exercise Physical Activity - Home Exercise: Safe Exercise, Warm-up, Self-monitoring, Cool-Down, Home Exercise > 30 min Daily, Sitting Time <3 hours/daily - Outcomes & Goals Outcomes/Goals: Demonstrates correct Warm-up/exercise Cool-Down (S3) if = 2.5 METs, Verbalizes symptoms of exercise intolerance by Session 3 (S3), Demonstrate safe equipment use (S3) & follows exercise prescrition (6) - Intervention & Plan Plan/Intervention: Instruct warm-up & cool-down if exercising at > 2 METs, Instruct on symptoms of exercise intolerance & actions to take, Instruct & monitor on saf, Assess intial functional capacity & safety risk - 30-day Reassessments 30 day Reassessments:: Met Nutrition - Final Assessment - Program Goals Nutrition Program Goals: LDL <100 optimal. 100 - 129 Near optimal. 130 - 159 Borderline High. 160 - 189 High. Total Cholesterol <200 desirable. 200 - 239 Borderline High. >/= 240 High. HDL < 40 Low >/=60 High. Triglycerides <150 desirable. <199 optimal. VlDL 5 - 40. HgbA1C <7%. BMI <25 Patient has diagnosis of Hyperlipidemia (ICD E78)?: Yes - Visit Date of Assessment:: 03/15/20 Session #:: 35 - no recent lipid profile available - Cholesterol/Lipids Determine presence & major risk factors that modify LDL goal: Hypertension or hypertensive medication, Age men > 45 years; women >/= 55 years Outcomes/Goals: Pt IDs own risk factors & lifestyle modifications by Session 10, Verbalizes symptoms of angina & response by session 3., Pt independently manages Intervention/Plan: Instruct on personal lipid levels & lipid goals/NCEP guidelines, Instruct on cholesterol Referral to dietitian:: No 30-day Reassessments:: Met - Diabetes (Other Core Measures) Diabetes Type: Not Applicable - Weight Mgt (Other Care) Height: 5 ft 6 in - loss of 4.2 pounds this 30 days!! Weight:: 169 lb 12.8 oz BMI: 27.3 Diagnosis Overweight/Obesity BMI> 30% ICD-10 E66: No Diagnosis High BMI/Morbid Obesity BMI> 35% ICD-10 Z68: No Outcomes/Goals: Pt sets, maintains & shows weight loss goal & trend during rehab Intervention/Plan: Instruct on ideal BMI & set weight loss goal w/patient, Assist pt to ID & incorporate diet changes for weight loss by S9, Encourage goal of using 250-300dcal per session for weight loss 30 day Reassessments:: Met - Healthy Eating Habits Will attend diet classes:: Yes Outcomes/Goals:: Consume diet rich in vegs,fruits,whole grain/high fiber,fish,lean meat, Limit sat/trans fats,cholesterol & added salts & sugars Intervention/Plan:: Assess current eating habits 30-day Reassessments:: Met - Education Gave educational materials for:: Healthy eating Medical - Final Assessment - Visit Date of Eval: 03/15/20 Session #:: 35 - Medication Compliance Preventative Medication(s):: Aspirin, Clopidogrel/P2Y12 inhibit, Statin/lipid, Beta pauline H/O mental health issues: depression, anxiety, or addiction?: No Doesn?t believe in the benefits of treatment?: No Believes medications are unnecessary or harmful?: No Has a concern about medication side effects?: No Expresses concern over the cost of medications?: No Outcomes/Goals: Verbalizes medications,desired effect & common side effects @ DC, Pt self-reports following medication regimen, Keeps card in wallet w/medications listed by DC Interventions/plans: Instruct on medication effects & side effects, Review medication list w/patient every two weeks, Instruct importance of taking meds as ordered & assist problem solving 30-day Reassessments:: Met - Tobacco Use Tobacco Use: Non-smoker - Hypertension Hypertension Diagnosis:: Hypertension ICD-10 I10 Resting Blood Pressure:: 112/60 - well controlled [place] [employer] Hypertension Guidelines: [place] [employer] Hypertension Guidelines. Normal BP Less than 120/80. Elevated BP 120/80. Hypertension Stage 1: BP 130-139/80-89. Hypertesnion Stage 2: BP 140 or higher/90 or higher. Hypertension Crisis: BP higher than 180/120 Peak Exercise Blood Pressure:: 124/68 - normal response to exercise Outcomes/Goals: Able to verbalize/achieve optimal blood pressure <130/80, Incorporates diet changes & exercise for blood pressure control by DC Interventions/plan: Instruct on optimal blood pressure, hypertension & medications, Instruct on effects of sodium, alcohol, stress, exercise &hypertension 30 day Reassessments:: Met - Tobacco Cessation Referral Smoking Cessation Referral:: No Individual Education/Counseling:: No Education Schedule Given:: Yes Psychosocial - Final Assessmen - VIsit Date of Eval: 03/15/20 Session #:: 35 Not Applicable: Yes History of previous Mental disease:: No - Target Goals Target Goals: Assess presence or absence of depression. Using a valid screening tool, maximizes coping skills. Positive support system - Psychosocial Test Tool Used:: [employer] QOL Cardiac, PHQ-9 Questionnaire phq-9 Severity: Severity. 1-4 Minimal Depression. 5-9 Mild Depression. 10-14 Moderate Depression. 15-19 Moderately Sever Depression. 20-27 Severe Depression. Rule: - Referral to Behavioral Health PS - Interventions: Yes Attend Stress Management Classes, No Referral to Behavioral Health if PHQ-9 score >9:, No Referral to [facility], No Referral to Physician if PHQ-9 if score is 5-9: - Intervention/Plan: See List Interventions/Plan:: Assess stressors,coping strategies & signs of derpression on admission, Instruct/assist pt to develop coping & personal stress Mgt strategies, Instruct patient to recognize signs & symptoms of depression, Instruct patient to recog - 30-day Reassessments: 30 day Reassessments:: Met Patient Health Questionnaire Discharge Assessment 1. Little interest or pleasure in doing things: Not at all 2. Feeling down, depressed, or hopeless: Not at all 3. Trouble falling or staying asleep, or sleeping too much: Not at all 4. Feeling tired or having little energy: Not at all 5. Poor appetite or overeating: Not at all 6. Feeling bad about yourself -- or that you are a failure or have let yourself or your family down: Not at all 7. Trouble concentrating on things, such as reading the newspaper or watching television: Not at all 8. Moving or speaking so slowly that other people could have noticed. Or the opposite - being so fidgety or restless that you have been moving around a lot more than usual: Not at all 9. Thoughts that you would be better off , or of hurting yourself in some way: Not at all Total Score: 0 KEVON-Q SV Test - Statements CAD is a disease of the arteries in the heart: False Examples of risk factors for heart disease: True Angina is chest pain or discomfort: True The benefits of resistance training include: True Eating more meat and dairy products: False Anti-platelet medications such as aspirin are important: True The only effective way to manage stress: False An exercise warm-up slowly increases heart rate: True Prepared, processed foods usually have high sodium: True Depression is common after a heart attack: True The statin medications lower cholesterol: True To control blood pressure, lower the amount of sodium: True If someone gets chest discomfort during walking: False Transfats are partially hydrogenated vegetable oils: True Sleep apnea that is not treated increases the risk: True To control cholesterol, one should become a vegetarian: False Someone knows if he/she is exercising at the right level: True Diabetes cannot be prevented with exercise & health eating: False Stress is a large risk for heart attack: True A diet that can help lower blood pressure is rich in: True - Total Score Total Correct Responses: 19 Self-Efficacy Discharge Assessment We would like to know how confident you are in doing certain activities. Please select your confidence level for:: Select your confidence level for the following using the scale 1-10 where 1 is not at all confident and 10 is totally confident. Your score is the average of all 6 responses. Fatigue: How confident are you that you can keep the fatigue caused by your disease from interfering with the things you want to do? Select Number: 10 Physical Discomfort or Pain: How confident are you that you can keep the physical discomfort or pain of your disease from interfering with the things you want to do? Select Number: 10 Emotional Distress: How confident are you that you can keep the emotional distress caused by your disease from interfering with the things you want to do? Select Number: 10 Other Symptoms or Health Problems: How confident are you that you can keep other symptoms or health problems from interfering with the things you want to do? Select Number: 10 Different Tasks and Activities: How confident are you that you can do the different tasks and activities needed to manage your health condition so as to reduce your need to see a doctor? Select Number: 10 Medication: How confident are you that you can do things other than just taking medication to reduce how much your illness affects your everyday life? Select Number: 10 Total Score:: 10 Nutrition Survey - Nutrition Survey Instructions Scoring Instructions: Scoring is as follows: Yes = 1 points. No = 0 point. Patient score that is >/=12 is considered to be at potential nutritional risk and could benefit from a referral to a registered dietitian. - Nutrition Survey Discharge Have you lost >10 lbs over the past 2 months without trying?: No Are you following a special diet at home for diabetes, low fat, or low salt?: Yes Are you interested in meeting with a dietitian for help understanding your diet?: No Do you eat less than 3 meals a day?: No Do you eat fatty meats (argueta, sausage, ribs, etc), fried foods, desserts, large amounts of salad dressings, margarine, butter, or cheese most days?: No Do you have food allergies? [Enter types in comment field]: No Do you eat in restaurants more than 3 times a week?: No Do you season food with salt, seasoning salt, or garlic salt?: No Do you used canned, boxed, frozen meals, or soups, seasoning packets?: No Total Score:: 1
[2020-03-15 07:25] VITALS: BP 112/60; BP 124/68; BMI 27.3
== END 2020-03-30 23:59 ==
LOC: CR 15:15
PROVIDERS: PCP Internal Medicine; Referring Provider Internal Medicine Cardiovascular Disease; Visit Provider Internal Medicine Cardiovascular Disease
DX: I25.10 Atherosclerotic heart disease of native coronary artery without angina pectoris (principal); I10 Essential (primary) hypertension; E78.5 Hyperlipidemia, unspecified; R00.2 Palpitations; Z95.5 Presence of coronary angioplasty implant and graft
CPT/HCPCS: 93798

== ENCOUNTER 2020-03-25 14:30 | Outpatient (RCR) | payer SELFPAY ==
[2020-01-03 10:43] VITALS: BMI 27.1
[2020-02-16 07:16] VITALS: BMI 28.0
== END 2020-03-30 23:59 ==
LOC: NS 14:30
PROVIDERS: PCP Internal Medicine; Visit Provider Internal Medicine Cardiovascular Disease
DX: Z71.3 Dietary counseling and surveillance (principal); I25.10 Atherosclerotic heart disease of native coronary artery without angina pectoris; I10 Essential (primary) hypertension; E78.5 Hyperlipidemia, unspecified; Z68.28 Body mass index [BMI] 28.0-28.9, adult; E66.3 Overweight
CPT/HCPCS: 97803

== ENCOUNTER 2020-04-22 14:30 | Outpatient (RCR) | payer SELFPAY ==
[2020-01-03 10:43] VITALS: BMI 27.1
[2020-03-15 07:25] VITALS: BMI 27.3
== END 2020-04-29 23:59 ==
LOC: NS 14:30
PROVIDERS: PCP Internal Medicine; Visit Provider Internal Medicine Cardiovascular Disease
DX: Z71.3 Dietary counseling and surveillance (principal); I25.10 Atherosclerotic heart disease of native coronary artery without angina pectoris; E78.5 Hyperlipidemia, unspecified; I10 Essential (primary) hypertension
CPT/HCPCS: 97803

== ENCOUNTER 2020-05-20 13:16 | Outpatient (RCR) | payer OTHER, SELFPAY ==
[2020-03-15 07:25] VITALS: BMI 27.3
[2020-04-09 14:53] VITALS: BMI 27.2
== END 2020-05-30 23:59 ==
LOC: NS 13:16
PROVIDERS: PCP Internal Medicine; Visit Provider Internal Medicine Cardiovascular Disease
DX: Z71.3 Dietary counseling and surveillance (principal); I25.10 Atherosclerotic heart disease of native coronary artery without angina pectoris; I10 Essential (primary) hypertension; E78.5 Hyperlipidemia, unspecified
CPT/HCPCS: 97803

== ENCOUNTER → 2020-06-08 09:21 | Outpatient (CLI) | payer OTHER, SELFPAY ==
[2020-03-15 07:25] VITALS: BMI 27.3
[2020-04-09 14:53] VITALS: BMI 27.2
[2020-06-08 10:15] LABS: AST(SGOT) 18 U/L (15-37); Alanine Aminotransfer ALT/SGPT 26 U/L (13-56); Alkaline Phosphatase 98 U/L (45-117); Bilirubin, Direct 0.19 mg/dL (0.00-0.30); Cholesterol 152 mg/dL (200); High Density Lipoprotein 66 mg/dL; Triglycerides 122 mg/dL; Very Low Density Lipoprotein 24 mg/dL (5-40)
== END ==
PROVIDERS: PCP Internal Medicine; Referring Provider Physician Assistant Medical; Visit Provider Physician Assistant Medical
DX: E78.00 Pure hypercholesterolemia, unspecified (principal); E78.5 Hyperlipidemia, unspecified
CPT/HCPCS: 36415; 80061; 80076

== ENCOUNTER 2020-06-18 14:59 | Outpatient (RCR) | payer SELFPAY ==
[2020-03-15 07:25] VITALS: BMI 27.3
[2020-04-09 14:53] VITALS: BMI 27.2
== END 2020-06-30 23:59 ==
LOC: NS 14:59
PROVIDERS: PCP Internal Medicine; Visit Provider Internal Medicine Cardiovascular Disease
DX: Z71.3 Dietary counseling and surveillance (principal); E66.3 Overweight; E78.5 Hyperlipidemia, unspecified; I25.10 Atherosclerotic heart disease of native coronary artery without angina pectoris; I10 Essential (primary) hypertension; Z68.28 Body mass index [BMI] 28.0-28.9, adult
CPT/HCPCS: 97803

== ENCOUNTER → 2020-07-15 06:17 | Outpatient (CLI) | payer OTHER, SELFPAY ==
[2020-03-15 07:25] VITALS: BMI 27.3
[2020-07-01 14:16] VITALS: BMI 26.4
[2020-07-15 08:52] LABS: Hematocrit 40.1 % (37-47); Hemoglobin 12.9 g/dL (12.0-15.0); Mean Corp Hgb Conc 32.2 g/dL (32-36); Mean Corpuscular Hgb 30.1 pg (27.0-32.0); Mean Corpuscular Volume 93.5 fL (81-99); Mean Platelet Vol. 9.1 fl (6.2-12.0); Platelet Count 311 K/mm3 (150-450); RBC Distribution Width CV 13.1 % (11.6-14.6); RBC Distribution Width SD 44.4 fl (35.1-43.9); Red Blood Count 4.29 M/mm3 (4.2-5.4); White Blood Count 8.1 K/mm3 (4.4-11.0)
[2020-07-15 09:16] LABS: Anion Gap 3 (5-15); BUN 17 mg/dL (7-18); BUN/Creat Ratio 26.6 RATIO (10-20); Calcium,Total 9.4 mg/dL (8.5-10.1); Chloride 103 mmol/L (98-107); Creatinine, Serum 0.64 mg/dL (0.55-1.02); EST Glomerular Filtration Rate 99 mL/min (>60); Est Glom Filt Rate - Afr Amer 119 mL/min (>60); Glucose 115 mg/dL (74-106); Sodium Level 136 mmol/L (136-145)
--- NOTE | 2020-07-15 12:14 | STRESSREP ---
Stress Test Report Exercise myocardial perfusion stress test. 64-year-old lady with a history of previous angioplasty and stenting of her left anterior descending artery in October of 2019 Stress protocol: Resting EKG demonstrates normal sinus rhythm with a rate of 61 bpm occasional premature ventricular complexes and nonspecific inferolateral EKG changes. The patient exercised according to the regular Scott protocol for a total duration of 5 minutes. Patient completed 2 minutes into stage II of the Scott protocol. The maximum heart rate attained 136 bpm which was 88% of max impacted heart rate the maximum workload was 7 metabolic equivalents. At rest nonspecific ST changes were noted with no meet the criteria for ischemia at peak exercise there was [address] depression noted in leads II, III and aVF. The above was suggestive of ischemia. There was slow improvement during recovery over period of approximately 20 minutes. Patient did not experience any chest discomfort but did get short of breath. The test was terminated due to ST changes. The peak blood pressure was 150/80 mmHg. Myocardial perfusion protocol. 11.5 mCi of technetium 99m sestamibi was injected at rest. The patient exercised according to regular Scott protocol for 5 minutes and at peak exercise 33.2 mCi of technetium 99m sestamibi was injected. Stress images were obtained stress and rest images were reconstructed and compared in the short axis vertical long horizontal long axis. Gated images were also obtained Perfusion SPECT analysis: Review of the stress images demonstrate mildly reduced perfusion noted in the anterior wall on the stress images with improvement in the resting images. The rest of the solis appear to have normal perfusion. The above is suggestive of anterior ischemia. No chamber dilatation was present. Gated SPECT analysis: The gated ejection fraction was noted to be 55%. Conclusion: Abnormal exercise myocardial perfusion stress test with EKG changes suggestive of ischemia. Anterior ischemia noted at a moderate workload. Normal ejection fraction.
== END ==
PROVIDERS: PCP Internal Medicine; Referring Provider Physician Assistant Medical; Visit Provider Physician Assistant Medical
DX: I25.10 Atherosclerotic heart disease of native coronary artery without angina pectoris (principal); R06.00 Dyspnea, unspecified
CPT/HCPCS: 36415; 78452; 80048; 85027; 93017; A9500; A4216

== ENCOUNTER 2020-07-19 06:52 | Day surgery (SDC) | payer OTHER, SELFPAY ==
[2020-03-15 07:25] VITALS: BMI 27.3
[2020-07-01 14:16] VITALS: BMI 26.4
[2020-07-18 08:22] VITALS: BMI 26.8
--- NOTE | 2020-07-19 06:00 | HP_ITS ---
HPI HPI History of Present Illness Details: This is a 64-year-old female that presents here today for a cardiovascular follow-up. She has a history of coronary artery disease with stenting to her LAD in October 2019. She also has a history of hypertension and hyperlipidemia. Pt does not have any chest pain. She does sometimes feel that she has SOB with exertion when she walks in the cold. This is newer for her. She does not have issues on other days. She does not have any palpitations. She lightheadedness/dizziness. She does not have any edema. Intake Vital Signs 07/01/20 Height 5 ft 6.5 in 07/01/20 Weight: 166 lb 07/01/20 BMI 26.4 07/01/20 BP 138/68 H 07/01/20 Blood Pressure Location Lt brachial 07/01/20 Position Sitting 07/01/20 Respiration 68 H 07/01/20 Pulse 16 L 07/01/20 Pulse Source Auscultation Intake Visit Reasons: 6 M FU (PREV DJN PT) Automatic Furnace Operator Required: No Accompanied by: None Is patient in pain?: No Allergies adhesive tape Adverse Reaction (Intermediate, Verified 07/01/20 14:18) Rash Medications atorvastatin 10 mg tablet 10 mg PO QHS 08/23/18 [History Confirmed 07/01/20] calcium carb 300 mg-D3 800 unit-mag ox 25 mg-gyroscopic instrument mechanic 0.5 mg-yesenia-Zn tablet 1 tab PO DAILY 08/23/18 [History Confirmed 07/01/20] cholecalciferol (vitamin D3) 25 mcg (1,000 unit) capsule 1,000 unit PO DAILY 08/23/18 [History Confirmed 07/01/20] osdozdfo-ofe-nggdf acid 0.4 mg-lycopene 300 mcg-lutein 250 mcg tablet 1 tab PO DAILY 08/23/18 [History Confirmed 07/01/20] propranolol 20 mg tablet 10 mg PO BID #90 tab 04/13/19 [Rx Confirmed 07/01/20] clopidogrel 75 mg tablet 75 mg PO QDAY #90 tab 12/07/19 [Rx Confirmed 07/01/20] aspirin 81 mg tablet,delayed release 81 mg PO DAILY #90 tab 07/01/20 [Rx Confirmed 07/01/20] losartan 25 mg tablet 25 mg PO DAILY #90 tab 07/01/20 [Rx Confirmed 07/01/20] Ejection fraction %: 50 to 54 [facility] Medical History Atherosclerosis of coronary artery without angina pectoris (Chronic) Palpitations (Chronic) Hypertension (Chronic) Hyperlipidemia (Chronic) H/O Jessica thyroiditis (Chronic 04/04/15) Multiple thyroid nodules (Chronic) Uterovaginal prolapse (Chronic) Abnormal stress test (Inactive) Surgical History History of coronary artery stent placement (Chronic 12/06/19) History of benign breast biopsy (Chronic) History of colonoscopy (Chronic) History of left heart catheterization (Chronic 09/14/18) History of patellar fracture (Chronic) History of tubal ligation (Chronic) Hx of malignant melanoma (Chronic) Status post biopsy of skin (Chronic) Family History Mother Breast cancer, Onset Age: 85 Father Hypertension Skin cancer Social History (Updated 07/03/20 @ 12:29 by Phyllis RANGEL, PA) Smoking Status: Never smoker alcohol intake: never substance use type: does not use caffeine: Yes Type: coffee Number of servings: 1 ROS Const Const: Negative for fatigue, weakness, headache(s), frequent falls, difficulty sleeping or excessive sweating Eyes Eyes: Negative for loss of peripheral vision, transient loss of vision, blurry vision, double vision or tunnel vision ENT ENT: Negative for headache(s), dizziness, Nosebleed/epistaxis or balance problems Cardio Chest Pain: No Palpitations: No Edema: None Muscle aches with walking: None Resp Respiratory: Negative for SOB with activity, SOB at rest, SOB orthopnea\SOB lying down, Cough or paroxysmal nocturnal dyspnea GI GI: Negative nausea, vomiting, heartburn or black,tarry stools : Negative for hematuria Musc Musc: Positive for joint pain; negative for muscle aches/ myalgia, muscle weakness or balance problems Skin Skin: Negative non-healing lesions, rash or unusual bruising Neuro Neuro: Negative for dizziness, lightheadedness, near syncope, syncope, frequent falls, headache(s), weakness, blurry vision, double vision or lack of coordination Armando Hematologic/Lymphatic: Negative for easy bleeding or easy bruising Endo Endo: Negative for fatigue, excessive sweating or increased thirst/drinking Psych Psych: Negative for anxiety or depression Allergy Allergy/Immunology: Negative for hives, Negative for rash Cardiology Exam Const Appearance: cooperative, healthy appearing, comfortable and no acute distress Nutritional Appearance: well nourished and overweight Orientation: alert, awake and oriented x3 Head Head: normal to inspection Ears: hearing grossly normal bilaterally Nose: external nose normal Face and Sinus: face symmetric Mouth: oral mucosae normal Eyes General: appearance normal, both eyes and all related structures Eyelids: eyelids normal EOM: EOM intact bilaterally Neck Neck: normal visual inspection and no JVD Carotids: normal carotid upstroke Chest Chest inspection: normal inspection of the chest, symmetric chest movement and normal respiratory effort; negative cough Auscultation: Bilateral: Clear to Auscultation Cardio Rate: regular rate Rhythm: regular rhythm Heart sounds: S1 normal and S2 normal; negative rub, gallop or murmur GI GI: normal to inspection Neuro General: alert, awake, oriented x3 and CN's II-XI intact bilaterally Skin Skin: no rashes or lesions noted Extremities Pulses: Normal: Right Posterior Tibial Pulse, Left Posterior Tibial Pulse, Right Radial Pulse, Left Radial Pulse Lower Extremity Edema: None: Bilateral Psych Psychological: normal affect Assessment & Plan 1. Atherosclerosis of coronary artery without angina pectoris I25.10 Plan With her increase in SOB with exertion concerned that this could be related to angina. Would like to obtain a stress test to further evaluate. Orders Orders: Nuclear Stress Test - Treadmil 07/01/20 2. Essential hypertension I10 Plan Blood pressure is well controlled on current medications, we do not recommend any changes at this time. 3. Hyperlipidemia, unspecified hyperlipidemia type E78.5 Plan Laboratory Tests 06/08/20 09:24 Cholesterol 152 LDL Cholesterol 62 HDL Cholesterol 66 She will continue with low dose statin 4. 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) Coding Level of Care Code Off vis,est,level 4 Diagnoses Atherosclerosis of coronary artery without angina pectoris I25.10 Essential hypertension I10 ??Hypertension type: essential hypertension Hyperlipidemia, unspecified hyperlipidemia type E78.5 ??Hyperlipidemia type: unspecified ALBARADO (dyspnea on exertion) R06.00 Coding Level of Care Code Off vis,est,level 4 Diagnoses Atherosclerosis of coronary artery without angina pectoris I25.10 Essential hypertension I10 ??Hypertension type: essential hypertension Hyperlipidemia, unspecified hyperlipidemia type E78.5 ??Hyperlipidemia type: unspecified ALBARADO (dyspnea on exertion) R06.00 Supplemental Info Supplemental Information Heart catheterization from 09/14/2018: CONCLUSIONS Non obstructive coronary arteries Segmented LV systolic dysfunction- Mild LVEF: by LV gram 55 % Normal Left Ventricular End Diastolic Pressure RECOMMENDATIONS ASA Indefinitely Start cozaar 25mg po daily for HTN and LV dysfunction. Manual sheath removal CORONARY ANGIOGRAPHY DOMINANCE: Right Dominant LEFT HEART ASSESSMENT Left Ventricular Ejection Fraction: by LV Gram 55 % Inferior Mid Hypokinesis - Mild Depressed Left Ventricular systolic function LVEDP: 8 mmHg Normal Left Ventricular End Diastolic Pressure LEFT MAIN: Angiographically normal LEFT ANTERIOR DESCENDING ARTERY: DISTAL LAD: Mild luminal irregularities less than 30% CIRCUMFLEX ARTERY: Angiographically normal RIGHT CORONARY ARTERY: Angiographically normal Stress echocardiogram from 11/29/2019: Interpretation Summary The estimated ejection fraction is 55 %. Mid-Anterior : Mildly hypokinetic Anterior [place] : Mildly hypokinetic Abnormal, adequate, treadmill echocardiogram. Positive for ischemia by EKG and echocardiographic criteria. No anginal symptoms noted. Rare PVC PACs noted. Patient developed [address] segment depression at 1 minute 14 seconds into exercise, to a maximum of 1.[address] segment depression at peak exercise. These changes persisted until 5 minutes 50 seconds into recovery. In addition the patient developed mid anterior septal and apical hypokinesis consistent with ischemia. Patient tolerate procedure well. Final LVEF of 45%. Test terminated due to attainment target heart rate and dyspnea which may be an anginal equivalent. CORONARY ANGIOGRAPHY 11/2019: DOMINANCE: Right Dominant LEFT HEART ASSESSMENT Left Ventricular Ejection Fraction: by LV Gram 65 % Normal Left Ventricular systolic function Normal LV wall motion. Normal LV wall motion LEFT MAIN: Angiographically normal LEFT ANTERIOR DESCENDING ARTERY: MID LAD: 75 % Stenosis CIRCUMFLEX ARTERY: Non-obstructive RIGHT CORONARY ARTERY: Angiographically normal INTERVENTION INFORMATION LESION SITE: LAD (Mid) Lesion Complexity: Non-High/Non-C, lesion at bifurcation: No, thrombus present: No, lesion length: 16 mm, culprit lesion: Yes Pre Stenosis: 75 % Pre intervention JACKIE flow: 3 PROCEDURE: Drug Eluting Stent Post Stenosis: 0 % Post intervention JACKIE flow: 3 Lesion Devices: [employer] 6 Fr EBU3.5 100cm Guide Catheter IGT [employer] ( [email or web address]) Coronary FFR Wire Yehuda Sousa MR JEANNE 2.25x16 Labs LDL Cholesterol 62 mg/dL (0-130) 06/08/20 HDL Cholesterol 66 mg/dL (40-) 06/08/20 Triglycerides 122 mg/dL (-199) 06/08/20 VLDL Cholesterol 24 mg/dL (5-40) 06/08/20
--- NOTE | 2020-07-19 08:50 | CL.D_ITS ---
Patient Name: LENIN BRAUN Study Date: 07/19/2020 Performing: Toro Andrews MD Ht: 66.14 inches 168 cm : 1955 Wt: 165.35 lbs 75 kg Age: 64 Gender: female BSA: 1.85 PROCEDURE(S) PERFORMED AD00-GIL/COR/LV CLINICAL PROFILE AND INDICATIONS Indications: Suspected CAD Heart Failure: None Stress/Imaging Date: 07/03/2020tress Test with SPECT MPI: Positive Intermediate Risk CAD Presentations: No Sxs, no angina. CONCLUSIONS Previously placed stent is patent in his LAD. Other coronaries appear to be normal. RECOMMENDATIONS Medical therapy DESCRIPTION OF PROCEDURE The patient arrived to the procedure lab. The risks and benefits of the procedure as well as a full d escription of our services here and current unavailability of surgical backup were fully explained to the patient and/or their significant other prior to the catheterization. The Timeout was completed, verifying the correct patient and procedure. The patient's procedural site was prepped and draped in the usual fashion. Local anesthetic was given subcutaneously to right radial region with Lidocaine 2% . Using a modified Seldinger technique, arterial access was obtained via the right radial artery, a 6 Fr sheath was inserted. Left Ventriculography was performed in ELIZONDO projection using a 5 Fr. Pigtail catheter. LV to AO pullback pressures were then recorded. Left Coronary Artery selective angiography was performed in multiple views using a 5 Fr. 4.0 [place] catheter. Right Coronary Artery selective ang iography was then performed in multiple views using a 5 Fr. 4.0 [place] catheter. Left Coronary Artery selective angiography was performed in multiple views using a 5 Fr. JL3.5 catheter.Th e arterial sheath was pulled and a TR Band was applied for hemostasis-12 cc air CORONARY ANGIOGRAPHY DOMINANCE: Right Dominant LEFT HEART ASSESSMENT Left Ventricular Ejection Fraction: by LV Gram 60 % Normal LV wall motion LEFT MAIN: Angiographically normal LEFT ANTERIOR DESCENDING ARTERY: MID LAD: Previously placed stent is patent CIRCUMFLEX ARTERY: No significant disease noted RIGHT CORONARY ARTERY: No significant disease noted COMPLICATIONS No Complications PROCEDURE MEDICATIONS Fentanyl 50 mcg IV Versed 1 mg IV Versed 1 mg IV Oxygen: 2 L/min via nasal cannula SUMMARY OF HEMODYNAMIC DATA Time AIR REST ECG 07:10:40 LV 115/-2, 3 08:18:55 LV 119/-3, 2 08:19:03 LV 97/0, 4 08:19:35 LV 100/-1, 3 08:19:42 LVp 102/-3, 5 08:19:49 AOp 122/56 (83) 08:19:54 AO 112/47 (69) SA 08:22:33 Signed By Toro Andrews MD On 07/19/2020 08:50:09 Toro Andrews MD
== END 2020-07-19 12:00 | disposition home or self-care (01) ==
LOC: CLSP 06:53
PROVIDERS: PCP Internal Medicine; Referring Provider Internal Medicine Cardiovascular Disease; Visit Provider Internal Medicine Cardiovascular Disease
DX: I25.10 Atherosclerotic heart disease of native coronary artery without angina pectoris (principal); R06.09 Other forms of dyspnea; I10 Essential (primary) hypertension; E78.5 Hyperlipidemia, unspecified; Z95.5 Presence of coronary angioplasty implant and graft; Z79.899 Other long term (current) drug therapy
CPT/HCPCS: 36415; 84484; 93458; 99152; 99153; J7040; Q9967; C1769; C1894

== ENCOUNTER 2020-07-29 14:44 | Outpatient (RCR) | payer SELFPAY ==
[2020-03-15 07:25] VITALS: BMI 27.3
[2020-04-09 14:53] VITALS: BMI 27.2
[2020-07-18 08:22] VITALS: BMI 26.8
== END 2020-07-29 17:06 | disposition home or self-care (01) ==
LOC: NS 14:44
PROVIDERS: PCP Internal Medicine; Visit Provider Internal Medicine Cardiovascular Disease
DX: Z71.3 Dietary counseling and surveillance (principal); I25.10 Atherosclerotic heart disease of native coronary artery without angina pectoris; E78.5 Hyperlipidemia, unspecified; I10 Essential (primary) hypertension; Z68.28 Body mass index [BMI] 28.0-28.9, adult
CPT/HCPCS: 97803

== ENCOUNTER → 2020-12-18 08:31 | Outpatient (CLI) | payer OTHER, SELFPAY ==
[2020-03-15 07:25] VITALS: BMI 27.3
[2020-07-18 08:22] VITALS: BMI 26.8
[2020-12-18 10:02] LABS: AST(SGOT) 18 U/L (15-37); Alanine Aminotransfer ALT/SGPT 26 U/L (13-56); Albumin, Serum 3.9 g/dL (3.2-5.0); Alkaline Phosphatase 98 U/L (45-117); Bilirubin, Direct 0.21 mg/dL (0.00-0.30); Cholesterol 167 mg/dL (200); Globulin 4.1 g/dL (2.2-4.2); High Density Lipoprotein 66 mg/dL; Triglycerides 116 mg/dL; Very Low Density Lipoprotein 23 mg/dL (5-40)
== END ==
PROVIDERS: PCP Internal Medicine; Referring Provider Physician Assistant Medical; Visit Provider Physician Assistant Medical
DX: E78.5 Hyperlipidemia, unspecified (principal)
CPT/HCPCS: 36415; 80061; 80076

== ENCOUNTER 2021-06-21 09:00 | Outpatient (CLI) | payer OTHER, SELFPAY ==
[2020-03-15 07:25] VITALS: BMI 27.3
[2021-06-21 09:47] LABS: Cholesterol 155 mg/dL (200); High Density Lipoprotein 73 mg/dL; Triglycerides 79 mg/dL; Very Low Density Lipoprotein 16 mg/dL (5-40)
[2021-06-21 09:50] LABS: AST(SGOT) 24 U/L (15-37); Alanine Aminotransfer ALT/SGPT 33 U/L (13-56); Albumin, Serum 3.8 g/dL (3.2-5.0); Alkaline Phosphatase 84 U/L (45-117); Bilirubin, Direct 0.23 mg/dL (0.00-0.30); Protein, Total 7.8 g/dL (6.4-8.2)
== END 2021-06-21 23:59 | disposition short-term general hospital (02) ==
PROVIDERS: PCP Internal Medicine; Visit Provider Physician Assistant Medical
DX: E78.5 Hyperlipidemia, unspecified (principal)
CPT/HCPCS: 36415; 80061; 80076

== ENCOUNTER → 2021-12-19 | Outpatient (CLI) | payer OTHER, SELFPAY ==
[2020-03-15 07:25] VITALS: BMI 27.3
[2021-12-19 10:08] LABS: AST(SGOT) 25 U/L (15-37); Alanine Aminotransfer ALT/SGPT 35 U/L (13-56); Albumin, Serum 3.8 g/dL (3.2-5.0); Alkaline Phosphatase 66 U/L (45-117); Bilirubin, Direct 0.22 mg/dL (0.00-0.30); Cholesterol 151 mg/dL (200); High Density Lipoprotein 64 mg/dL; Protein, Total 7.8 g/dL (6.4-8.2); Triglycerides 124 mg/dL; Very Low Density Lipoprotein 25 mg/dL (5-40)
== END | disposition home or self-care (01) ==
LOC: LAB 08:18
PROVIDERS: PCP Internal Medicine; Referring Provider Physician Assistant Medical; Visit Provider Physician Assistant Medical
DX: E78.00 Pure hypercholesterolemia, unspecified (principal); E78.5 Hyperlipidemia, unspecified
CPT/HCPCS: 36415; 80061; 80076

== ENCOUNTER → 2022-07-20 | Outpatient (CLI) | payer MEDICARE, SELFPAY ==
[2020-03-15 07:25] VITALS: BMI 27.3
[2022-07-20 11:13] LABS: AST(SGOT) 25 U/L (15-37); Alanine Aminotransfer ALT/SGPT 40 U/L (13-56); Albumin, Serum 3.8 g/dL (3.2-5.0); Alkaline Phosphatase 58 U/L (45-117); Cholesterol 136 mg/dL (200); Globulin 3.7 g/dL (2.2-4.2); High Density Lipoprotein 56 mg/dL; Protein, Total 7.5 g/dL (6.4-8.2); Triglycerides 102 mg/dL; Very Low Density Lipoprotein 20 mg/dL (5-40)
== END | disposition home or self-care (01) ==
LOC: LAB 08:24
PROVIDERS: PCP Internal Medicine; Referring Provider Internal Medicine Cardiovascular Disease; Visit Provider Internal Medicine Cardiovascular Disease
DX: E78.00 Pure hypercholesterolemia, unspecified (principal)
CPT/HCPCS: 36415; 80061; 80076

== ENCOUNTER → 2022-09-29 | Outpatient (CLI) | payer MEDICARE, SELFPAY ==
[2020-03-15 07:25] VITALS: BMI 27.3
--- NOTE | 2022-09-29 18:07 | STRESSREP_ITS ---
Stress Test Report Exercise myocardial perfusion stress test. 66-year-old lady with a history of dyspnea on exertion Stress protocol: Resting EKG demonstrates normal sinus rhythm with a rate of 64 bpm resting blood pressure is 122/80 mmHg. The patient exercised according to the regular Scott protocol for a total duration of 8 minutes attaining a maximum heart rate of 137 bpm which was 90% of maximum predicted heart rate; the maximum workload was 10.1 metabolic equivalents. At rest there were no ST or T wave changes noted to suggest ischemia and at peak exercise approximately 1.[address] depression were noted in leads V4, V5 and V6 and 2 and aVF suggestive of ischemia. No chest pain was noted but there was shortness of breath which was p resent. The test was terminated due to fatigue. The peak blood pressure was 160/70 mmHg. Rate-pressure product was 21,900. Myocardial perfusion protocol. 11.1 mCi of technetium 99m sestamibi was injected at rest. The patient exercised according to regular Scott protocol for total duration of 8 minutes and at peak exercise 33.6 mCi of technetium 99m sestamibi was injected stress images were obtained stress and rest images were reconstructed in comparing the short axis vertical long and horizontal long axis. Gated images were also obtained. Perfusion SPECT analysis: Review of the stress images demonstrate normal uptake of tracer noted in all areas of the myocardium. The resting images similarly demonstrate normal uptake of tracer noted in all areas of the myocardium. No areas of reversibility are noted to suggest ischemia no previous infarct was noted. Gated SPECT analysis: The gated ejection fraction is 64%. Conclusion: Normal exercise myocardial perfusion stress test at a high workload Preserved ejection fraction. EKG changes suggestive of ischemia
== END | disposition home or self-care (01) ==
PROVIDERS: PCP Internal Medicine; Referring Provider Physician Assistant Medical; Visit Provider Physician Assistant Medical
DX: R06.09 Other forms of dyspnea (principal)
CPT/HCPCS: 78452; 93017; A9500; A4216

== ENCOUNTER 2022-10-13 07:01 | Day surgery (SDC) | payer MEDICARE, SELFPAY ==
[2020-03-15 07:25] VITALS: BMI 27.3
--- NOTE | 2022-10-02 09:35 | RAD_ITS ---
INDICATION: abnormal stress, CAD, ALBARADO EXAMINATION/TECHNIQUE: X-RAY - XR Chest 2 Views COMPARISON: 12/04/2019 FINDINGS: LINES/DEVICES: None. LUNGS: No consolidation, edema or effusion. No pneumothorax. MEDIASTINUM AND CARDIOVASCULAR STRUCTURES: Cardiac silhouette not enlarged. Central airways and mediastinal contour are unremarkable. BONES AND SOFT TISSUES: No acute changes. RAD/Chest PA and Lateral IMPRESSION: No radiographic evidence of acute cardiopulmonary disease. Electronically Signed: Kemal Guerin MD at 17:58 EDT ,
[2022-10-02 09:55] LABS: Hematocrit 40.1 % (37-47); Mean Corp Hgb Conc 32.4 g/dL (32-36); Mean Corpuscular Hgb 30.2 pg (27.0-32.0); Mean Corpuscular Volume 93.3 fL (81-99); Mean Platelet Vol. 9.2 fl (6.2-12.0); Platelet Count 297 K/mm3 (150-450); RBC Distribution Width CV 12.8 % (11.6-14.6); RBC Distribution Width SD 43.8 fl (35.1-43.9)
[2022-10-02 10:06] LABS: Prothrombin Time (Protime)PT. 13.4 SECONDS (11.7-14.9)
[2022-10-02 10:19] LABS: Anion Gap 7 (5-15); BUN 19 mg/dL (7-18); BUN/Creat Ratio 30.4 RATIO (10-20); Calcium,Total 9.5 mg/dL (8.5-10.1); Chloride 107 mmol/L (98-107); Creatinine, Serum 0.62 mg/dL (0.55-1.02); EST Glomerular Filtration Rate 101 mL/min (>60); Est Glom Filt Rate - Afr Amer 122 mL/min (>60); Glucose 97 mg/dL (74-106); Potassium 3.9 mmol/L (3.5-5.1); Sodium Level 143 mmol/L (136-145)
[2022-10-12 07:59] VITALS: BMI 27.1
--- NOTE | 2022-10-13 07:53 | PCM.HP.BLA ---
History and Physical Adry Perera is a 66-year-old female that presents here today for a diagnostic heart cath.? She has a history of coronary artery disease with stenting to her LAD in October 2019.? She also has a history of hypertension and hyperlipidemia. She had presented to the office in July of 2022 with concerns of more difficulty breathing and when it is colder outside. This was newer for her. She is recovering from COVID. She did undergo an exercise nuclear stress test. Patient had ST depression that was suggestive for ischemia at peak exercise. She had 1.[address] depression in leads V4, V5 and V6 and 2 and aVF. She was able to walk at a high workload. Stress images were normal. Because of this she is undergoing a diagnostic heart cath. Allergies adhesive tape Adverse Reaction (Intermediate, Verified 08/18/22 11:33) Rash Medications calcium carb 300 mg-D3 800 unit-mag ox 25 mg-gyroscope repairer 0.5 mg-yesenia-Zn tablet (Caltrate + D3 Plus Minerals) 1 tab PO DAILY 08/23/18 [History Confirmed 08/18/22] vnwhhwmj-tgr-poved acid 0.4 mg-lycopene 300 mcg-lutein 250 mcg tablet (Centrum Silver) 1 tab PO DAILY 08/23/18 [History Confirmed 08/18/22] cholecalciferol (vitamin D3) 25 mcg (1,000 unit) capsule 50 mcg PO DAILY 12/27/20 [History Confirmed 08/18/22] alendronate 70 mg tablet 70 mg PO QWEEK 02/20/22 [History Confirmed 08/18/22] aspirin 81 mg tablet,delayed release (Adult Aspirin Regimen) 81 mg PO DAILY #90 tabs 08/18/22 [Rx Confirmed 08/18/22] atorvastatin 10 mg tablet 10 mg PO QHS #90 tabs 08/18/22 [Rx Confirmed 08/18/22] losartan 25 mg tablet 25 mg PO DAILY #90 tabs 08/18/22 [Rx Confirmed 08/18/22] metoprolol succinate 25 mg tablet,extended release 24 hr (Toprol XL) 25 mg PO DAILY #90 tabs 08/18/22 [Rx Confirmed 08/18/22] PFSH Medical History? Abnormal stress test Atherosclerosis of coronary artery without angina pectoris Essential (primary) hypertension H/O Jessica thyroiditis (04/04/15) Hyperlipidemia Multiple thyroid nodules Palpitations Uterovaginal prolapse Surgical History? History of benign breast biopsy History of colonoscopy History of coronary artery stent placement (12/06/19) History of left heart catheterization (07/19/20) History of patellar fracture History of tubal ligation Hx of malignant melanoma Status post biopsy of skin Family History? Mother Breast cancer,? Onset Age: 85Father Hypertension Skin cancer Social History? Smoking Status:? Never smoker alcohol intake:? never substance use type:? does not use caffeine:? Yes Type: coffee Number of servings: 1 ROS Const Const: Negative for fatigue, weakness, fever(s) or headache(s) Eyes Eyes: Negative for blind spots, loss of peripheral vision or transient loss of vision ENT ENT: Negative for headache(s), dizziness, tinnitus, Nosebleed/epistaxis or balance problems Cardio Chest Pain: No Palpitations: No Edema: None Muscle aches with walking: None Resp Respiratory: Positive for SOB with activity; Negative for SOB at rest, SOB orthopnea\SOB lying down or Cough GI GI: Negative nausea, vomiting, heartburn or vomiting blood/hematemesis : Negative for hematuria Musc Musc: Negative for muscle aches/ myalgia, muscle weakness, joint pain or balance problems Neuro Neuro: Negative for dizziness, lightheadedness, near syncope, syncope, orthostatic symptoms, headache(s) or weakness Armando Hematologic/Lymphatic: Negative for easy bleeding Endo Endo: Negative for fatigue Cardiology Exam Const Appearance: cooperative, healthy appearing, comfortable, no acute distress and well developed Orientation: alert, awake and oriented x3 Head Head: normal to inspection Ears: hearing grossly normal bilaterally Nose: external nose normal Face and Sinus: face symmetric Mouth: oral mucosae normal, lip normal and moist mucous membranes Eyes General: appearance normal, both eyes and all related structures Eyelids: eyelids normal Conjunctivae: conjunctivae normal Pupils: PERRL EOM: EOM intact bilaterally Neck Neck: normal visual inspection and trachea midline; Negative no JVD Carotids: Negative bruit Chest Chest inspection: normal inspection of the chest Auscultation: Bilateral: Clear to Auscultation Cardio Palpation: normal PMI Rate: regular rate Rhythm: regular rhythm Heart sounds: S1 normal and S2 normal; Negative rub, gallop or murmur GI GI: soft, no hepatosplenomegaly and bowel sounds present Neuro General: patient alert, patient awake, patient oriented x3 and CN's II-XI intact bilaterally Extremities Pulses: Normal: Right Posterior Tibial Pulse, Left Posterior Tibial Pulse, Right Radial Pulse and Left Radial Pulse Lower Extremity Edema: None: Bilateral Psych Psychological: normal affect Assessment & Plan Assessment/Plan (1) Abnormal nuclear stress test: (2) ALBARADO (dyspnea on exertion): (3) History of coronary artery stent placement: PLAN: Plan With patient's abnormal stress test, she will undergo a diagnostic heart catheterization. Follow-up will be based upon findings.
--- NOTE | 2022-10-13 08:48 | CL.D_ITS ---
Patient Name: LENIN BRAUN Study Date: 10/13/2022 Performing: Toro Andrews MD Ht: 66 inches 167.64 cm : 1955 Wt: 167.99 lbs 76.2 kg Age: 66 Gender: female BSA: 1.86 PROCEDURE(S) PERFORMED [id number])LHC/COR/LV CLINICAL PROFILE AND INDICATIONS Indications: Suspected CAD Heart Failure: None Stress/Imaging Date: 09/29/22 CAD Presentations: Stable angina. CONCLUSIONS Non obstructive coronary arteries Previously placed stent patent RECOMMENDATIONS Medical therapy DESCRIPTION OF PROCEDURE The patient arrived to the procedure lab. The risks and benefits of the procedure as well as a full description of our services here and current unavailability of surgical backup were fully explained to the patient and/or their significant other prior to the catheterization. The Timeout was completed, verifying the correct patient and procedure. The patient's procedural site was prepped and draped in the usual fashion. Local anesthetic was given subcutaneously to right radial region with Lidocaine 2%. Using a modified Seldinger technique, arterial access was obtained via the right radial artery, a 6Fr sheath was inserted. Left Coronary Artery selective angiography was performed in multiple views using a 5 Fr. 4.0 Henderson catheter. Right Coronary Artery selective angiography was then performed in multiple views using a 5 Fr. 4.0 Henderson catheter. Right Coronary Artery selective angiography was then performed in multiple views using a 5 Fr. JR 5 catheter. Left Coronary Artery selective angiography was performed in multiple views using a 5 Fr. JL3.5 catheter. Left Ventriculography was performed in ELIZONDO projection using a 5 Fr. Pigtail catheter. LV to AO pullback pressures were then recorded.The arterial sheath was pulled and a TR Band was applied for hemostasis-8cc air CORONARY ANGIOGRAPHY DOMINANCE: Right Dominant LEFT HEART ASSESSMENT Left Ventricular Ejection Fraction: by LV Gram 60 % Normal LV wall motion Normal Left Ventricular systolic function LEFT MAIN: Angiographically normal LEFT ANTERIOR DESCENDING ARTERY: Previously placed stent is patent CIRCUMFLEX ARTERY: Angiographically normal RIGHT CORONARY ARTERY: Angiographically normal COMPLICATIONS No Complications PROCEDURE MEDICATIONS Fentanyl 50 mcg IV Versed 1 mg IV Oxygen: 2 L/min via nasal cannula Heparin given IA 10/13/2022 08:20:24 Verapamil 2.5mg, Ntg 100mcgs, 3000 units of Heparin given IA 10/13/2022 08:20:24 SUMMARY OF HEMODYNAMIC DATA Time AIR REST ECG 07:34:53 AO 129/58 (82) SA 08:26:14 LV 143/7, 17 08:37:50 LV 142/6, 17 08:37:57 LV 134/6, 17 08:38:22 LVp 119/15, 24 08:38:28 AOp 128/61 (88) 08:38:33 Signed By Toro Andrews MD On 10/13/2022 08:47:43 Toro Andrews MD
== END 2022-10-13 10:40 | disposition home or self-care (01) ==
LOC: CLSP 07:01
PROVIDERS: PCP Internal Medicine; Referring Provider Internal Medicine Cardiovascular Disease; Visit Provider Internal Medicine Cardiovascular Disease
DX: I25.118 Atherosclerotic heart disease of native coronary artery with other forms of angina pectoris (principal); R94.39 Abnormal result of other cardiovascular function study; R06.09 Other forms of dyspnea; E78.5 Hyperlipidemia, unspecified; I10 Essential (primary) hypertension; Z95.5 Presence of coronary angioplasty implant and graft; Z79.82 Long term (current) use of aspirin; Z79.899 Other long term (current) drug therapy; Z86.16 Personal history of COVID-19
CPT/HCPCS: 36415; 71046; 80048; 85027; 85610; 85730; 93458; 99152; 99153; J7040; C1769; C1894; Q9967

== ENCOUNTER → 2023-03-02 | Outpatient (CLI) | payer MEDICARE, SELFPAY ==
[2020-03-15 07:25] VITALS: BMI 27.3
[2023-03-02 09:38] LABS: AST(SGOT) 19 U/L (15-37); Alanine Aminotransfer ALT/SGPT 30 U/L (13-56); Albumin, Serum 3.9 g/dL (3.2-5.0); Alkaline Phosphatase 64 U/L (45-117); Bilirubin, Direct 0.23 mg/dL (0.00-0.30); Cholesterol 151 mg/dL (200); Globulin 4.1 g/dL (2.2-4.2); High Density Lipoprotein 59 mg/dL; Triglycerides 142 mg/dL; Very Low Density Lipoprotein 28 mg/dL (5-40)
== END | disposition home or self-care (01) ==
PROVIDERS: PCP Internal Medicine; Referring Provider Internal Medicine Cardiovascular Disease; Visit Provider Internal Medicine Cardiovascular Disease
DX: E78.00 Pure hypercholesterolemia, unspecified (principal)
CPT/HCPCS: 36415; 80061; 80076

== ENCOUNTER → 2023-04-01 | Outpatient (CLI) | payer MEDICARE, SELFPAY ==
[2020-03-15 07:25] VITALS: BMI 27.3
[2023-04-01 15:34] LABS: AST(SGOT) 21 U/L (15-37); Alanine Aminotransfer ALT/SGPT 33 U/L (13-56); Albumin, Serum 3.8 g/dL (3.2-5.0); Alkaline Phosphatase 72 U/L (45-117); Bilirubin, Direct 0.13 mg/dL (0.00-0.30); Globulin 4.4 g/dL (2.2-4.2); Protein, Total 8.2 g/dL (6.4-8.2)
== END | disposition home or self-care (01) ==
LOC: MTLAB 13:05
PROVIDERS: PCP Internal Medicine; Referring Provider Dermatology Pediatric Dermatology; Visit Provider Dermatology Pediatric Dermatology
DX: L21.8 Other seborrheic dermatitis (principal); L65.9 Nonscarring hair loss, unspecified; L66.1 Lichen planopilaris; D64.9 Anemia, unspecified
CPT/HCPCS: 36415; 80076

== ENCOUNTER → 2023-04-13 | Outpatient (CLI) | payer MEDICARE, SELFPAY ==
[2020-03-15 07:25] VITALS: BMI 27.3
[2023-04-13 16:19] LABS: Hepatitis B Surface Antibody Non-Reactive
[2023-04-15 12:09] LABS: HEPATITIS B SURFACE AG Negative (Negative); Hep C Antibodies Non Reactive (Non Reactive); Hepatitis A AB, Total Positive (Negative); Hepatitis A IgM Antibody Negative (Negative); Hepatitis B Core AB IgM Negative (Negative)
== END | disposition home or self-care (01) ==
PROVIDERS: PCP Internal Medicine; Referring Provider Dermatology Pediatric Dermatology; Visit Provider Dermatology Pediatric Dermatology
DX: D64.9 Anemia, unspecified (principal)
CPT/HCPCS: 36415; 80074; 86706; 86708

== ENCOUNTER → 2023-08-16 | Outpatient (CLI) | payer MEDICARE, SELFPAY ==
[2020-03-15 07:25] VITALS: BMI 27.3
[2023-08-16 09:20] LABS: AST(SGOT) 22 U/L (15-37); Alanine Aminotransfer ALT/SGPT 31 U/L (13-56); Alkaline Phosphatase 53 U/L (45-117); Bilirubin, Direct 0.26 mg/dL (0.00-0.30); Cholesterol 151 mg/dL (200); High Density Lipoprotein 66 mg/dL; Triglycerides 109 mg/dL; Very Low Density Lipoprotein 22 mg/dL (5-40)
== END | disposition home or self-care (01) ==
LOC: LAB 08:21
PROVIDERS: PCP Internal Medicine; Referring Provider Physician Assistant Medical; Visit Provider Physician Assistant Medical
DX: E78.00 Pure hypercholesterolemia, unspecified (principal)
CPT/HCPCS: 36415; 80061; 80076

== ENCOUNTER → 2024-03-03 | Outpatient (CLI) | payer MEDICARE, SELFPAY ==
[2020-03-15 07:25] VITALS: BMI 27.3
[2024-03-03 09:59] LABS: AST(SGOT) 11 U/L (15-37); Alanine Aminotransfer ALT/SGPT 29 U/L (13-56); Albumin, Serum 3.7 g/dL (3.2-5.0); Alkaline Phosphatase 64 U/L (45-117); Bilirubin, Direct 0.22 mg/dL (0.00-0.30); Cholesterol 145 mg/dL (200); High Density Lipoprotein 61 mg/dL; Protein, Total 7.7 g/dL (6.4-8.2); Triglycerides 89 mg/dL; Very Low Density Lipoprotein 18 mg/dL (5-40)
== END | disposition home or self-care (01) ==
PROVIDERS: PCP Internal Medicine; Referring Provider Physician Assistant Medical; Visit Provider Physician Assistant Medical
DX: E78.00 Pure hypercholesterolemia, unspecified (principal)
CPT/HCPCS: 36415; 80061; 80076

== ENCOUNTER 2024-07-20 14:56 | Emergency (ER) | payer MEDICARE, SELFPAY ==
[2020-03-15 07:25] VITALS: BMI 27.3
[2024-07-20] VITALS (9 sets, daily range): BP systolic 136–181; BP diastolic 78–130; PULSE 24–83; RESP 16–25; TEMP 36.1–36.6; O2SAT 95–100; BMI 27.8
--- NOTE | 2024-07-20 15:16 | EKG12_ITS ---
Test Reason : LOW HR Blood Pressure : */* mmHG Vent. Rate : 77 BPM Atrial Rate : 77 BPM P-R Int : 152 ms QRS Dur : 98 ms QT Int : 400 ms P-R-T Axes : 74 50 -62 degrees QTcB Int : 452 ms Sinus rhythm with frequent Premature ventricular complexes ST & T wave abnormality, consider lateral ischemia Abnormal ECG Confirmed by RUSS COLLINS ([id number]), science editor KALIE GUZMAN ([id number]) on 07/24/2024 7:10:48 AM Referred By: Confirmed By: RUSS COLLINS
--- NOTE | 2024-07-20 15:25 | RAD_ITS ---
PROCEDURE: CHEST 1 VIEW (PORTABLE) REASON FOR EXAM: Chest pain, worse with inspiration. TECHNIQUE: Frontal view of the chest. COMPARISON: Chest PA and lateral dated 10/02/2022. FINDINGS: Areas of subsegmental atelectasis and/or parenchymal scarring in the lung bases. Can not exclude a developing infiltrate. No pleural effusions, thickening, or pneumothorax. Heart and mediastinum are normal. Great vessels unremarkable. No hilar masses. Mild degenerative change involving the left humeral head. Cardiac monitoring leads overlie the chest wall. RAD/Chest 1 View (Portable) IMPRESSION: Suspected atelectasis versus developing infiltrates at the lung bases. Reading Location: [facility]
--- NOTE | 2024-07-20 15:26 | ED.VIS.CHEST ---
HPI History of Present Illness Chief Complaint: Chest Pain Informant: patient and spouse/S.O. Onset/Context/Timing Onset: Days Activity at onset: gradual Timing: Intermittent Current Severity: Mild Maximum Severity: Mild Narrative Narrative: 68-year-old female history of CAD with 1 stent. No history of DVT or PE. Presents complaining of trouble taking a deep breath. She really denies any chest pain she says she feels that she has fullness in the left side of her chest. She does not feel short of breath. She denies any leg pain or swelling. No hemoptysis. She did have a recent fall but did not think she hurt herself and fell about 1 to 2 weeks ago. She also had recent travel to [place]. Prior Similar Symptoms: No Recent Illness/Hospitalization: No CVD Risk Factors: Positive for Hypertension PE Risk Factors: Positive for Recent Travel/Surgery; Negative for Recent Immobilization, Prior DVT or PE, Cancer or OCP + Smoking + >/=35 TAD Risk Factors: Negative for Marfan's Syndrome [facility] Medical History Essential (primary) hypertension Atherosclerosis of coronary artery without angina pectoris Uterovaginal prolapse Palpitations H/O Jessica thyroiditis (04/04/15) Abnormal stress test Hyperlipidemia Multiple thyroid nodules Home Medications ?Medication ?Instructions ?Recorded ?Last Taken ?Type calcium 300 mg-D3 20 mcg-magnesium 1 tab PO DAILY 08/23/18 Unknown History 25 mg-coppr 0.5 [id number] tablet (Caltrate-D3 Plus Minerals) [id number]-[id number] acid 0.4 1 tab PO DAILY 08/23/18 Unknown History mg-lycopene 300 mcg-lutein 250 mcg tablet (Centrum Silver) cholecalciferol (vitamin D3) 25 50 mcg PO DAILY 12/27/20 Unknown History mcg (1,000 unit) capsule alendronate 70 mg tablet 70 mg PO QWEEK 02/20/22 Unknown History aspirin 81 mg tablet,delayed 81 mg PO DAILY #90 tabs 08/18/22 10/13/22 Rx release (Adult Aspirin Regimen) atorvastatin 10 mg tablet 10 mg PO QHS #90 tabs 08/23/23 Unknown Rx losartan 25 mg tablet 25 mg PO DAILY #90 tabs 08/23/23 Unknown Rx minoxidil 2.5 mg tablet 2.5 mg PO DAILY 08/23/23 Unknown History metoprolol succinate 25 mg 12.5 mg (1/2 x 25 mg) PO DAILY #90 06/27/24 Unknown Rx tablet,extended release 24 hr tabs (Toprol XL) Allergy/AdvReac Type Severity Reaction Status Date / Time adhesive tape AdvReac Intermediate Rash Verified 08/23/23 09:49 Family History Mother Breast cancer, Onset Age: 85 Father Hypertension Skin cancer Surgical History History of coronary artery stent placement (12/06/19) History of left heart catheterization (07/19/20) Status post biopsy of skin History of patellar fracture History of benign breast biopsy History of tubal ligation History of colonoscopy Hx of malignant melanoma Social History Smoking Status: Never smoker alcohol intake: never substance use type: does not use caffeine: Yes Type: coffee Number of servings: 1 ROS ROS ED ROS Narrative Denies recent illness. Denies cough fever chills. Denies nausea, vomiting diarrhea Constitutional Constitutional ED: Denies chills or fever(s) Eyes Eyes: Reports none ENT ENT ED: Denies ear pain Cardiovascular Cardiovascular: Denies chest pain Respiratory/Chest Respiratory/Chest: Denies cough, dyspnea or dyspnea on exertion Gastrointestinal Gastrointestinal: Denies abdominal pain, constipation, diarrhea, melena, nausea or vomiting Genitourinary Genitourinary ED: Denies dysuria or hematuria Musculoskeletal Musculoskeletal: Denies arthralgias Integumentary Denies abscess Neurologic Neurologic: Denies headache(s) Psychiatric Psychiatric: Denies anxiety Endocrine Endocrinology: Denies cold intolerance or heat intolerance Hematologic/Lymphatic Hematologic/Lymphatic: Denies easy bleeding, easy bruising or lymphadenopathy Allergic/Immunologic Allergic/Immunologic ED: Denies mouth swelling, tongue swelling or urticaria EXAM Physical Exam Narrative Exam Narrative: 68-year-old female no acute distress. Sitting upright in bed. Vital signs are stable afebrile. Pulse ox 100% on room air no signs of hypoxia. Reportedly in triage she had a pulse rate of 24 blood blood pressure 165/100. Currently her pulse is in the 80s with occasional PVCs. H EENT exam normal. Pupils round react light. moist mucous members. Neck nontender no JVD. Lungs clear to auscultation bilateral. Heart regular rate and rhythm rate 80s. Frequent PVCs. Chest wall ribs nontender. Abdomen soft nontender. Moving all 4 extremities. Nontender no edema no cords. Normal range of motion. Calves nontender. Equal symmetrical radial pulses. Normal senior gl accountant strength. Neurologically she is awake and alert no focal motor deficits. Answer questions following commands. Const Vital Signs: 07/20/24 14:57 07/20/24 15:08 07/20/24 15:24 Temperature 96.9 F L Temperature Source Temporal Pulse Rate 24 L 83 76 Respiratory Rate 16 25 H 25 H Blood Pressure 165/100 H 181/90 H Blood Pressure Mean 121 120 Pulse Ox 100 98 98 Oxygen Delivery Method Room Air Room Air 07/20/24 15:29 07/20/24 16:00 07/20/24 16:00 Temperature Temperature Source Pulse Rate 75 73 Respiratory Rate 16 22 H Blood Pressure 136/91 H 136/91 H Blood Pressure Mean 106 103 Pulse Ox 100 98 95 Oxygen Delivery Method Room Air Room Air 07/20/24 16:45 07/20/24 17:00 07/20/24 17:30 Temperature Temperature Source Pulse Rate 75 76 72 Respiratory Rate 20 H 21 H 20 H Blood Pressure 145/78 H 144/130 H Blood Pressure Mean 96 137 Pulse Ox 96 96 97 Oxygen Delivery Method Positive well nourished and well developed; Negative for cachectic, contractures or unkempt General Appearance ED: well developed and NAD; Negative for unkempt, cachectic, contractures or pallor Nutritional Appearance: Negative for cachectic HEENT Reports moist mucous membranes normocephalic and atraumatic; Negative for trauma Eyes PERRL and EOMs intact bilaterally General Eye ED: Negative for pale conjunctiva or scleral icterus Neck no lymphadenopathy, supple and no JVD General: Negative for tenderness Chest Wall inspection of chest normal and palpation of chest normal Resp normal respiratory effort and clear to auscultation bilaterally Effort and Inspection: Negative for respiratory distress Auscultation: Negative for rales, rhonchi or wheezes Cardio regular rate, regular rhythm, S1 normal heart sound, S2 normal heart sound and no murmurs Peripheral Pulses: pulses 2+ throughout GI normal to inspection, nondistended, normoactive bowel sounds, soft to palpation, non-tender, non-distended and no masses Back/Spine no CVA tenderness and no thoracic nor lumbar tenderness General Back: Negative for CVA tenderness Cervical Spine: Negative for cervical spine tenderness Extremity normal to inspection General Extremety ED: Negative for edema, pulses abnormal or tenderness General Extremity: Negative for edema or pulses abnormal Neuro oriented x3 and CN's II-XII intact bilaterally Sensorium / Orientation: awake, alert, oriented to person, oriented to place and oriented to time; Negative for confused, lethargic or stuporous Motor Exam: strength 5/5 throughout Psych mental status grossly normal Appearance: Negative for unkempt Mood & Affect: Negative for depressed, anxious or tearful Skin no rashes or lesions noted and no wounds General Skin Exam: Negative for jaundice or pallor Rashes: No rashes noted Trauma: Negative for abrasion or laceration MDM MDM MDM Narrative Medical decision making narrative: 68-year-old female with difficulty taking deep breath. Benign exam. Other than PVCs. Cardiac workup/PE workup due to recent travel. Repeat exam patient is doing well at 5:55 PM. We went over her test results. After that exam her 2-hour troponin returned was unremarkable also. Her D-dimer is above normal but adjusted for age and still negative. She does not need a CTA. She is comfortable being discharged home with outpatient follow-up. History & Record Review Discussion w/independent historian: Patient Additional record(s) reviewed:: Prior inpatient record, Prior outpatient record, Prior ED visit and Prior labs Lab Data Attestation: I reviewed the patient's lab results. Lab results narrative: CBC unremarkable white count 8. H&H 13 and 39. Electrolytes unremarkable. Gap 5. Normal BUN and creatinine. Glucose 105. Initial troponin 5. 2-hour troponin 12. Labs: Laboratory Results - last 24 hr 07/20/24 07/20/24 15:08 17:30 WBC 8.0 RBC 4.17 L Hgb 13.1 Hct 39.2 MCV 94.0 MCH 31.4 MCHC 33.4 RDW Std Deviation 45.4 H RDW Coeff of [place] 13.2 Plt Count 287 MPV 9.7 Immature Gran % (Auto) 0.400 Neut % (Auto) 64.0 Lymph % (Auto) 22.7 [place] % (Auto) 7.7 Eos % (Auto) 4.8 Baso % (Auto) 0.4 Absolute Neuts (auto) 5.1 Absolute Lymphs (auto) 1.81 Nucleated RBC % 0 D-Dimer Quant (PE/DVT) 0.63 H* Sodium 141 Potassium 3.6 Chloride 106 Carbon Dioxide 30.0 Anion Gap 5 BUN 18 Creatinine 0.66 Estim Creat Clear Calc 69.03 Est GFR (MDRD) Af Amer 114 Est GFR (MDRD) Non-Af 94 BUN/Creatinine Ratio 27.3 H Glucose 105 Calcium 9.7 Troponin I High Sens 5 12 Radiography Chest X-Ray - ED: 1 View, Read by ED Physician, Read by Radiologist, Heart, Lungs, Mediastinum, Bony Structures, No Acute Disease and Chronic Changes Diagnostic Testing: Clinical Impression(s) from Imaging Studies Chest X-Ray 07/20/24 15:25 IMPRESSION: Suspected atelectasis versus developing infiltrates at the lung bases. Reading Location: [facility] Chest x-ray, portable, single view interpreted by myself and radiologist. Shows normal cardiac silhouette. Normal lung nam. No pneumonia. No effusions. Chronic changes. Rhythm Strip Rhythm Strip: Sinus Rhythm Rate: 77 Ectopy: PVC(s) EKG Initial EKG: Attestation: I personally reviewed and interpreted this EKG as follows: Interpretation: Sinus Rhythm, No Acute Injury Pattern and S-T Depression Comments: Normal sinus rhythm rate of 77 no acute signs of NM. She does have PVCs. Does have ST depression in leads II, III, aVF and V4 through V6. Seen on prior EKG. Prior EKG tracings: available for review Prior: Unchanged Discharge Plan Triage Chief Complaint: Chest Pain ED Provider: Jose M Muñoz Dx/Rx/DC Orders Clinical Impression: Chest pain, PVC (premature ventricular contraction), History of CAD (coronary artery disease) Instructions: ED Chest Pain, Uncertain Cause Prescriptions: No Action Centrum Silver 0.4-300-250 mg-mcg-mcg tablet 1 tab PO DAILY Caltrate-D3 Plus Minerals 300 mg-800 unit -25 mg-0.5 mg tablet 1 tab PO DAILY cholecalciferol (vitamin D3) 25 mcg (1,000 unit) capsule 50 mcg PO DAILY alendronate 70 mg tablet 70 mg PO QWEEK aspirin [Adult Aspirin Regimen] 81 mg tablet,delayed release (DR/EC) 81 mg PO DAILY Qty: 90 3RF minoxidil 2.5 mg tablet 2.5 mg PO DAILY Rx Instructions: 1/2 tab daily atorvastatin 10 mg tablet 10 mg PO QHS Qty: 90 3RF losartan 25 mg tablet 25 mg PO DAILY Qty: 90 3RF metoprolol succinate [Toprol XL] 25 mg tablet extended release 24 hr 12.5 mg PO DAILY Qty: 90 4RF Primary Care Provider: Yana Soto Referrals: Yana Soto MD [Primary Care Provider] - 3-5 Days if not improving Activity Restrictions/Additional Instructions: Labs, EKG and chest x-ray all look good. No specific cause for your symptoms. Follow-up with your doctor if not improving or return if worse. Print Language: Sammarinese Disposition Disposition: Home, Self Care
[2024-07-20 15:33] LABS: Absolute Lymphocyte Count 1.81 X10^3/uL (0.83-4.51); Absolute Neutrophil Count 5.1 X10^3/uL (2.0-7.7); Basophil# 0.03 X10^3/uL; Basophil% 0.4 % (0-1); Eosinophil# 0.38 X10^3/uL; Eosinophils% 4.8 % (0-5); Hematocrit 39.2 % (37-47); Hemoglobin 13.1 g/dL (12.0-15.0); Lymphocyte # 1.81 X10^3/ul (0.83-4.51); Lymphocyte % 22.7 % (19-41); Mean Corp Hgb Conc 33.4 g/dL (32-36); Mean Corpuscular Hgb 31.4 pg (27.0-32.0); Mean Platelet Vol. 9.7 fl (6.2-12.0); Monocyte# 0.61 X10^3/uL; Monocyte% 7.7 % (0-10); NRBC Flagged by Analyzer 0 % (0-5); Neutrophil # 5.11 X10^3/uL (2.7-7.7); Platelet Count 287 K/mm3 (150-450); RBC Distribution Width CV 13.2 % (11.6-14.6); RBC Distribution Width SD 45.4 fl (35.1-43.9); Red Blood Count 4.17 M/mm3 (4.2-5.4)
[2024-07-20 15:45] LABS: Anion Gap 5 (5-15); BUN 18 mg/dL (7-18); BUN/Creat Ratio 27.3 RATIO (10-20); Calcium,Total 9.7 mg/dL (8.5-10.1); Chloride 106 mmol/L (98-107); Creatinine, Serum 0.66 mg/dL (0.55-1.02); EST Glomerular Filtration Rate 94 mL/min (>60); Est Glom Filt Rate - Afr Amer 114 mL/min (>60); Estimated Creatinine Clearance 69.03 ml/min; Glucose 105 mg/dL (74-106); Potassium 3.6 mmol/L (3.5-5.1); Sodium Level 141 mmol/L (136-145); Troponin-I HS (w/2H Reflex) 5 pg/mL (3.0-54.0)
[2024-07-20 16:12] LABS: D-Dimer Quantitative (DVT/PE) 0.63 FEU/ug/m (0.27-0.49)
--- NOTE | 2024-07-20 16:13 | ED.RN ---
LAB CALLED CRITICAL OF D-DIMER 0.63. DR OAKES
[2024-07-20 17:25] LABS: Reflex Troponin-HS? (from REC) Y
[2024-07-20 17:56] LABS: Troponin-I HS 12 pg/mL (3.0-54.0)
== END 2024-07-20 18:28 | disposition home or self-care (01) ==
PROVIDERS: Emergency Provider Emergency Medicine; PCP Internal Medicine; Visit Provider Emergency Medicine
DX: R07.89 Other chest pain (principal); I10 Essential (primary) hypertension; I25.10 Atherosclerotic heart disease of native coronary artery without angina pectoris; I49.3 Ventricular premature depolarization; E78.5 Hyperlipidemia, unspecified; Z95.5 Presence of coronary angioplasty implant and graft; Z79.82 Long term (current) use of aspirin; Z79.899 Other long term (current) drug therapy
CPT/HCPCS: 71045; 80048; 84484; 85025; 85379; 93005; 99283; A4216

== ENCOUNTER → 2024-08-02 | Outpatient (CLI) | payer MEDICARE, SELFPAY ==
[2020-03-15 07:25] VITALS: BMI 27.3
[2024-08-02 10:58] LABS: Cholesterol 162 mg/dL (<=200); High Density Lipoprotein 63 mg/dL; Low Density Lipoprotein Calc. 79 mg/dL; Triglycerides 100 mg/dL; Very Low Density Lipoprotein 20 mg/dL (5-40); cholesterol:hdl ratio screen 2.56
[2024-08-02 11:22] LABS: AST(SGOT) 27 U/L (<=31); Alanine Aminotransfer ALT/SGPT 29 U/L (<=34); Albumin, Serum 4.4 g/dL (3.4-4.8); Alkaline Phosphatase 70 U/L (35-104); Globulin 3.3 g/dL (2.2-4.2); Protein, Total 7.7 g/dL (5.9-8.4)
== END | disposition home or self-care (01) ==
LOC: LAB 09:29
PROVIDERS: PCP Internal Medicine; Referring Provider Student in an Organized Health Care Education/Training Program; Visit Provider Student in an Organized Health Care Education/Training Program
DX: E78.00 Pure hypercholesterolemia, unspecified (principal)
CPT/HCPCS: 36415; 80061; 80076

== ENCOUNTER → 2024-08-31 | Outpatient (CLI) | payer MEDICARE, SELFPAY ==
[2020-03-15 07:25] VITALS: BMI 27.3
== END | disposition home or self-care (01) ==
LOC: PSN 08:45
PROVIDERS: PCP Internal Medicine; Referring Provider Student in an Organized Health Care Education/Training Program; Visit Provider Student in an Organized Health Care Education/Training Program
DX: R00.1 Bradycardia, unspecified (principal)
CPT/HCPCS: 93225; 93226

== ENCOUNTER → 2024-10-20 | Outpatient (CLI) | payer MEDICARE, SELFPAY ==
[2020-03-15 07:25] VITALS: BMI 27.3
--- NOTE | 2024-10-20 12:49 | ECHOD_ITS ---
Reason For Study Reason For Study: PVC Procedure This was a 2D Doppler, Color Flow transthoracic echocardiogram. Exam performed in department. Left Ventricle Moderately dilated left ventricle. The left ventricular ejection fraction is 45 %. Stage 1 diastolic dysfunction. There is mild global hypokinesis of the left ventricle. Right Ventricle Normal RV size. Normal systolic function. Atria Normal left atrium. Normal right atrium. Mitral Valve Normal mitral valve. Tricuspid Valve Normal tricuspid valve. Aortic Valve Trisinus/trileaflet aortic valve. Trivial aortic valve insufficiency. Pulmonic Valve Normal pulmonic valve. Great Vessels Normal aortic root. The pulmonary artery is normal size. Inferior vena cava collapse with respiration. Pericardium/Pleural No pericardial effusion. MMode/2D Measurements & Calculations LVIDd: 6.0 cm IVSd: 0.78 cm LVOT diam: 2.0 cm LVIDs: 5.2 cm LVPWd: 0.96 cm LVOT area: 3.3 cm2 RVDd: 3.7 cm FS: 14.2 % Ao root diam: 2.8 cm LAV(MOD-bp): 49.7 ml LVAd ap4: 35.9 cm2 LAV(MOD-bp) Indexed: 26.6 ml/m2 LVLd ap4: 8.3 cm LAV(MOD-sp2): 37.2 ml EDV(MOD-sp4): 131.5 ml LAV(MOD-sp4): 55.6 ml EDV(sp4-el): 131.5 ml LVAs ap4: 24.5 cm2 LVLs ap4: 6.9 cm ESV(MOD-sp4): 74.4 ml ESV(sp4-el): 73.6 ml EF(MOD-sp4): 43.4 % EF(sp4-el): 44.1 % SV(MOD-sp4): 57.0 ml SV(sp4-el): 57.9 ml LA A4 area: 19.4 cm2 SI(MOD-sp4): 30.6 ml/m2 LA dimension(2D): 3.6 cm RA A4 area: 14.5 cm2 Time Measurements MV dec time: 0.14 sec Doppler Measurements & Calculations MV E max louie: 91.4 cm/sec Lat Peak E' Louie: 7.4 cm/sec Med Peak E' Louie: 6.0 cm/sec MV A max louie: 93.3 cm/sec E/E' lat: 12.3 E/E' med: 15.2 MV E/A: 0.98 Ao V2 max: 107.3 cm/sec LV V1 max: 93.3 cm/sec MV dec slope: 679.0 cm/sec2 Ao max P.7 mmHg LV V1 max P.5 mmHg Ao V2 mean: 78.3 cm/sec LV V1 mean P.2 mmHg Ao mean P.7 mmHg LV V1 mean: 70.4 cm/sec Ao V2 VTI: 23.9 cm LV V1 VTI: 22.3 cm AV (velocity ratio): 0.94 MIHIR(I,D): 3.1 cm2 MIHIR(V,D): 2.9 cm2 SV(LVOT): 73.4 ml PA V2 max: 76.8 cm/sec PA V2 mean: 61.3 cm/sec ECHO/Echo Complete Interpretation Summary Moderately dilated left ventricle. The left ventricular ejection fraction is 45 %. Stage 1 diastolic dysfunction. Ordering Physician: Yoav Houser Referring Physician: Yoav Houser Performed By: Francisca Christopher RCS
== END | disposition home or self-care (01) ==
LOC: CVS 12:48
PROVIDERS: PCP Internal Medicine; Referring Provider Student in an Organized Health Care Education/Training Program; Visit Provider Student in an Organized Health Care Education/Training Program
DX: I49.3 Ventricular premature depolarization (principal)
CPT/HCPCS: 93306

== ENCOUNTER → 2024-11-17 | Outpatient (CLI) | payer MEDICARE, SELFPAY ==
[2020-03-15 07:25] VITALS: BMI 27.3
[2024-11-17 12:16] LABS: Anion Gap 10 (5-15); BUN 21 mg/dL (4-19); BUN/Creat Ratio 29.5 RATIO (10-20); Calcium,Total 9.7 mg/dL (7.6-11.0); Carbon Dioxide 25.5 mmol/L (21.0-32.0); Chloride 105 mmol/L (98-108); EST Glomerular Filtration Rate 93 (>60); Glucose 108 mg/dL (70-99); Magnesium 2.1 mg/dL (1.5-2.2); Potassium 4.5 mmol/L (3.3-5.1); Sodium Level 141 mmol/L (133-145)
== END | disposition home or self-care (01) ==
LOC: LAB 11:11
PROVIDERS: PCP Internal Medicine; Referring Provider Student in an Organized Health Care Education/Training Program; Visit Provider Student in an Organized Health Care Education/Training Program
DX: E04.1 Nontoxic single thyroid nodule (principal); I49.3 Ventricular premature depolarization; R00.2 Palpitations; I10 Essential (primary) hypertension
CPT/HCPCS: 36415; 80048; 83735; 84443

== ENCOUNTER → 2024-11-29 | Outpatient (CLI) | payer MEDICARE, SELFPAY ==
[2020-03-15 07:25] VITALS: BMI 27.3
== END | disposition home or self-care (01) ==
LOC: PSN 08:44
PROVIDERS: PCP Internal Medicine; Referring Provider Student in an Organized Health Care Education/Training Program; Visit Provider Student in an Organized Health Care Education/Training Program
DX: R00.2 Palpitations (principal); I49.3 Ventricular premature depolarization
CPT/HCPCS: 93225; 93226

== ENCOUNTER → 2025-01-03 | Outpatient (CLI) | payer MEDICARE, SELFPAY ==
[2020-03-15 07:25] VITALS: BMI 27.3
== END | disposition home or self-care (01) ==
PROVIDERS: PCP Internal Medicine; Referring Provider Student in an Organized Health Care Education/Training Program; Visit Provider Student in an Organized Health Care Education/Training Program
DX: I49.3 Ventricular premature depolarization (principal)
CPT/HCPCS: 93225; 93226

== ENCOUNTER → 2025-02-05 | Outpatient (CLI) | payer MEDICARE, SELFPAY ==
[2020-03-15 07:25] VITALS: BMI 27.3
== END | disposition home or self-care (01) ==
LOC: PSN 08:16
PROVIDERS: PCP Internal Medicine; Referring Provider Student in an Organized Health Care Education/Training Program; Visit Provider Student in an Organized Health Care Education/Training Program
DX: R00.1 Bradycardia, unspecified (principal); I49.3 Ventricular premature depolarization
CPT/HCPCS: 93225; 93226

== ENCOUNTER → 2025-03-30 | Outpatient (CLI) | payer MEDICARE, SELFPAY ==
[2020-03-15 07:25] VITALS: BMI 27.3
== END | disposition home or self-care (01) ==
LOC: PSN 08:23
PROVIDERS: PCP Internal Medicine; Referring Provider Student in an Organized Health Care Education/Training Program; Visit Provider Student in an Organized Health Care Education/Training Program
DX: I49.3 Ventricular premature depolarization (principal)
CPT/HCPCS: 93225; 93226

== ENCOUNTER → 2025-05-18 | Outpatient (CLI) | payer MEDICARE, SELFPAY ==
[2020-03-15 07:25] VITALS: BMI 27.3
[2025-05-18 11:06] LABS: AST(SGOT) 26 U/L (<=31); Alanine Aminotransfer ALT/SGPT 21 U/L (<=34); Albumin, Serum 4.6 g/dL (3.4-4.8); Alkaline Phosphatase 66 U/L (35-104); Bilirubin, Direct 0.36 mg/dL (0.00-0.30); Globulin 3.2 g/dL (2.2-4.2)
== END | disposition home or self-care (01) ==
LOC: LAB 09:25
PROVIDERS: PCP Internal Medicine; Referring Provider Student in an Organized Health Care Education/Training Program; Visit Provider Student in an Organized Health Care Education/Training Program
DX: Z51.81 Encounter for therapeutic drug level monitoring (principal); Z79.899 Other long term (current) drug therapy
CPT/HCPCS: 36415; 80076